=== PATIENT | male | born 1950 | race Caucasian/White ===

== ENCOUNTER 2019-12-14 01:47 | Inpatient (IN) | payer MEDICARE, OTHER ==
--- NOTE | 2019-12-14 02:07 | EDM.PDOC ---
ED HPI GENERAL MEDICAL PROBLEM - General Chief Complaint: Chest Pain Stated Complaint: chest pain Time Seen by Provider: 12/14/19 02:00 Source of Information: Reports: Patient, Old Records ([facility] chart/EMR), Other ([facility]) History Limitations: Reports: No Limitations - History of Present Illness INITIAL COMMENTS - FREE TEXT/NARRATIVE: The patient was brought to the emergency room via ambulance with basic transport/EMT accompaniment for evaluation of 5/10 retrosternal chest pressure which did radiate to the shoulders bilaterally. His symptoms did wake him up at about 11 PM this evening with no known previous history of coronary artery disease. The power supply engineer did perform an EKG with 4 baby aspirin also given. O2 was also initiated at 4 L/min by nasal cannula. The patient denies any heart flutter, dizziness, orthostasis, orthopnea, diaphoresis, paresthesias, recent decreased exercise tolerance, or any other anginal-type symptoms. No recent history of abdominal pain, heartburn, nausea, diarrhea, melena, gross hematochezia, or any food intolerance, including fatty foods, etc. with normal bowel movement 2 days ago. He denies any gross hematuria, colic, or other UTI symptoms. The patient also denies any recent fever, wheezing, dyspnea, etc. with stable chronic nonproductive cough secondary to his tobacco use. Chest pain symptoms resolved at time of arrival to this facility. He is a somewhat poor historian. Onset: Sudden Onset Date: 12/13/19 Onset Time: 23:00 Duration: Resolved Prior to Arrival Location: Reports: Chest, Upper Extremity, Left, Upper Extremity, Right, Radiates to (As above). Denies: Head, Face, Neck, Abdomen, Back, Pelvis Quality: Reports: Pressure Severity: Moderate Improves with: Reports: Medication Worsens with: Reports: None Context: Reports: Other (As above). Denies: Sick Contact, Trauma Treatments LAND PLANNER: Reports: Aspirin, EKG, Nitroglycerin, Oxygen Chest Pain Score (Numeric/FACES): 4 - Related Data Allergies Allergy/AdvReac Type Severity Reaction Status Date / Time No Known Allergies Allergy Verified 12/14/19 02:04 Home Meds: Home Meds Albuterol [Proventil HFA] 2 puff INH Q4H PRN #1 inhaler 09/20/14 [Rx] Warfarin [Coumadin] 5 mg PO ASDIRECTED 12/14/19 [History] Warfarin [Coumadin] 6 mg PO ASDIRECTED 12/14/19 [History] Past Medical History HEENT History: Reports: Cataract, Hard of Hearing, Impaired Vision, Other (See Below). Denies: Allergic Rhinitis, Glaucoma, Macular Degeneration, Otitis Media, Retinal Detachment Other HEENT History: Bilateral presbycusis with no current hearing aid therapy. Patient does wear reading glasses. Cardiovascular History: Reports: Blood Clots/VTE/DVT, High Cholesterol, Hypertension. Denies: Afib, Arrhythmia, CAD, Cardiomyopathy, Heart Failure, Heart Murmur, CT, PVD, Syncope Other Cardiovascular History: History of recurrent DVTs of the legs in the initially in the left leg and then in the right leg with current Coumadin therapy. Respiratory History: Reports: Bronchitis, Recurrent, COPD, Intubation, Previous, Pneumonia, Recurrent, Pulmonary Fibrosis, Other (See Below). Denies: Intubation, Difficult, PE, Pneumothorax, Sleep Apnea, TB Other Respiratory History: O2 dependent COPD usually nocturnal at 3.5 L/min. Metastatic lung cancer as below. Gastrointestinal History: Reports: Colon Polyp, GERD, Other (See Below). Denies: Celiac Disease, Cholelithiasis, Chronic Constipation, Chronic Diarrhea, Gastritis, GI Bleed, Hepatitis, Inflammatory Bowel Disease, Irritable Bowel Syndrome, Jaundice, Pancreatitis, PUD Other Gastrointestinal History: Esophageal cancer as below. Genitourinary History: Reports: BPH. Denies: Acute Renal Failure, Chronic Renal Insuffiency, Renal Calculus, STD, Urinary Incontinence, UTI, Recurrent Musculoskeletal History: Reports: Arthritis, Back Pain, Chronic, Fracture, Neck Pain, Chronic, Osteoarthritis, RA, Other (See Below). Denies: Gout, SLE Other Musculoskeletal History: Mid shaft right tibial and fibular fracture at about age 10 not requiring surgery. Left rotator cuff tear on 04/19/2017. Neurological History: Reports: Other (See Below). Denies: Cerebral Aneurysms, Concussion, CVA, Headaches, Chronic, Head Trauma, Migraines, MS, Neuropathy, Diabetic, Neuropathy, Peripheral, Parkinson's, Seizure, TIA Other Neuro History: Right arm ulnar neuropathy. Psychiatric History: Reports: Addiction, Other (See Below). Denies: Abuse, Victim of, ADD, ADHD, Anxiety, Depression, Psych Hospitalization(s), PTSD, Suicide Attempt, Suicidal Ideation Other Psychiatric History: Alcohol and tobacco use as below. Endocrine/Metabolic History: Reports: Hypothyroidism, Obesity/BMI 30+, Other (See Below). Denies: Diabetes, Type I, Diabetes, Type II, Diabetes Mellitus, Type 3c, IDDM Other Endocrine/Metabolic History: Previous obesity however not currently secondary to lung cancer, etc. Hematologic History: Reports: Other (See Below). Denies: Anemia, B12 Deficiency , Blood Transfusion(s), Iron Deficiency Other Hematologic History: Polycythemia secondary to tobacco abuse. Immunologic History: Reports: Immunosuppression, Other (See Below). Denies: AIDS, HIV, SLE Other Immunologic History: Current lung with metastases. Oncologic (Cancer) History: Reports: Esophageal, Lung, Metastatic, Other (See Below). 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 Initial therapy completed on 06/06/2018 with patient discontinuing therapy on his own for recurrence in March 2019. New left upper lobe pulmonary nodules by CT scan on 09/26/2019. 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 Dermatologic History: Reports: None. Denies: Eczema, Psoriasis - Infectious Disease History Infectious Disease History: Reports: Chicken Pox, Rheumatic Fever. Denies: C- Difficile, Measles, Meningitis, Mononucleosis, MRSA, Mumps, Pertussis (Whooping Cough), Rubella, Scarlet Fever, Shingles, TB, VRE - Past Surgical History Head Surgeries/Procedures: Reports: None HEENT Surgical History: Reports: Cataract Surgery, Eye Surgery, Oral Surgery, Other (See Below). Denies: Adenoidectomy, Laser Surgery, LASIK, Myringotomy w Tube(s), Naso-Sinus Surgery, Tonsillectomy Other HEENT Surgeries/Procedures: Laryngoscopies on 06/21/2018 and 01/18/2018. Bilateral cataract surgery at age 66. Complete teeth extraction with complete dentures uppers and lowers. Cardiovascular Surgical History: Reports: Other (See Below). Denies: Varicose Other Cardiovascular Surgeries/Procedures: Right-sided Port-A-Cath placement on 05/09/2018. Respiratory Surgical History: Reports: Lung Biopsies, Other (See Below). Denies: Thoracentesis Other Respiratory Surgeries/Procedures: Left-sided lung biopsies secondary to lung cancer as above. Bronchoscopy is on 03/23/2018 and 10/12/2017. GI Surgical History: Reports: Appendectomy, Colonoscopy, EGD, Hernia, Abdominal, Polypectomy, Other (See Below). Denies: Cholecystectomy, Hernia, Inguinal, Hernia Repair/Other Other GI Surgeries/Procedures: Laparoscopic appendectomy and concomitant umbilical hernia repair in about 2009. EGD and colonoscopy on 09/20/2017. EGD on 02/19/2017. Male Surgical History: Reports: Circumcision, Other (See Below). Denies: TURP-Transurethral Resection of Prostate, Vasectomy Other Male Surgeries/Procedures: Circumcision as an infant. Endocrine Surgical History: Reports: None. Denies: Thyroid Biopsy Neurological Surgical History: Reports: Lumbar Spine, Spinal Fusion, Other (See Below). Denies: C-Spine, Discectomy, Laminectomy, Sacral Spine, Thoracic Spine Other Neurological Surgeries/Procedures: Spinal fusions in 1997, 2002, and 2003. Musculoskeletal Surgical History: Denies: Arthroscopic Procedure, Carpal Tunnel, Ganglion Cyst, Joint Replacement, ORIF, Shoulder Surgery Oncologic Surgical History: Reports: None Dermatological Surgical History: Reports: None - Past Imaging History Past Imaging History: Reports: CAT Scan (Multiple CTs of the chest with IV contrast with last evaluations on 09/26/2019 and 07/04/2019. Soft tissue of the neck CT on 09/03/2017.), MRI (MRI of the left shoulder on 04/19/2017.), PET (PET/CT of the skull and brain on 08/31/2018 and 03/02/2018 with similar evaluation however to the thigh on 10/04/2017.), PFT (10/07/2017), Swallow Study (09/03/2017), Ultrasound (Endobronchial ultrasound on 03/23/2018 and 10/12/2017.), Other (See Below) (EMG and nerve conduction studies on 07/14/2018.) Social & Family History - Family History HEENT: Reports: Macular Degeneration, Retinal Detachment, Other (See Below). Denies: Glaucoma Other HEENT Family History: Sister with macular degeneration. Brother with retinal detachment. Cardiac: Reports: Aneurysm, Other (See Below). Denies: Afib, Arrhythmia, Blood Clots/VTE/DVT, CAD, Heart Failure, High Cholesterol, Hypertension, CT, PVD/COD, Syncope Other Cardiac Family History: Mother with AAA. Respiratory: Reports: None. Denies: Asthma, COPD, PE, Pneumothorax, Sleep Apnea GI: Reports: None. Denies: Celiac Disease, Cholelithiasis, Colon Polyps, GERD, GI bleed, Inflammatory Bowel Disease, Irritable Bowel Syndrome, PUD : Reports: None. Denies: Renal Calculus, Renal Disease/Insufficiency OBGYN: Reports: None. Denies: Endometriosis, Recurrent Spontaneous Musculoskeletal: Reports: None. Denies: Arthritis, Gout, Osteoarthritis, RA, SLE Neurological: Reports: None. Denies: Alzheimers Disease, CVA, Dementia, Migraines, MS, Parkinson's, Seizure, TIA Psychiatric: Reports: None. Denies: Abuse, Victim of, ADD, ADHD, Anxiety, Depression, Psych Hospitalization(s), PTSD, Suicide Attempt Endocrine/Metabolic: Reports: None. Denies: Diabetes, Type I, Diabetes, type II, Diabetes Mellitus, Type 3c, Hypothyroidism, IDDM Hematologic: Reports: None. Denies: SLE Immunologic: Reports: None. Denies: AIDS, HIV, SLE Dermatologic: Reports: None. Denies: Eczema, Psoriasis Oncologic: Reports: None. Denies: Colon, Esophageal, Hodgkin's Lymphoma, Leukemia, Lymphoma, Non-Hodgkin's Lymphoma, Prostate, Skin - Tobacco Use Smoking Status *Q: Current Every Day Smoker Tobacco Use Within Last Twelve Months: Cigarettes Years of Tobacco use: 52 Packs/Tins Daily: 0.5 Packs/Tins Daily Comment: Started smoking at age 17 with maximum use of 1.5 packs/day. - Caffeine Use Caffeine Use: Reports: Coffee (10 cups/day), Soda (Occasional). Denies: Energy Drinks, Tea - Alcohol Use Alcohol Use History: Yes Days Per Week of Alcohol Use: 7 Number of Drinks Per Day: 6 Number of Drinks Per Day Comment: Usually beer. Patient denies previous alcohol abuse or treatment, although history of alcohol abuse per medical records. 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 ED EXAM, GENERAL - Physical Exam Exam: See Below General Appearance: Alert, WD/WN, No Apparent Distress Eye Exam: Bilateral Eye: EOMI, Normal Inspection (No nystagmus), PERRL Ears: Normal External Exam, Normal Canal (Moderate right-sided cerumen impaction), Normal TMs, Hearing Loss (Moderate bilateral presbycusis) Nose: Normal Inspection, Normal Mucosa, No Blood Throat/Mouth: Normal Inspection, Normal Lips, Normal Gums, Normal Oropharynx, Normal Voice, No Airway Compromise. No: Normal Teeth (Complete dentures uppers and lowers), Dysphagia, Perioral Cyanosis Head: Atraumatic, Normocephalic. No: Facial Swelling, Facial Tenderness, Sinus Tenderness Neck: Normal Inspection, Supple, Non-Tender, Full Range of Motion. No: Lymphadenopathy (L), Lymphadenopathy (R), Thyromegaly Respiratory/Chest: No Respiratory Distress, Rales (Moderate diffuse bilaterally. Mild diffuse bilaterally including in the bases left greater than right.), Rhonchi. No: Pleural Rub, Retractions Cardiovascular: Normal Peripheral Pulses, Regular Rate, Rhythm, No Gallop, No JVD, No Murmur, No Rub. No: No Edema (Dependent edema as below), Gallop/S3, Gallop/S4 Peripheral Pulses: 2+: Radial (L), Radial (R), Dorsalis Pedis (L), Dorsalis Pedis (R) GI/Abdominal: Normal Bowel Sounds, Soft, Non-Tender, No Organomegaly, No Distention, No Abnormal Bruit, No Mass, Pelvis Stable. No: Guarding (Male) Exam: Deferred Rectal (Males) Exam: Deferred Back Exam: Full Range of Motion, Other (Mild kyphosis). No: CVA Tenderness (L), CVA Tenderness (R), Muscle Spasm, Paraspinal Tenderness, Vertebral Tenderness Extremities: Normal Range of Motion, Non-Tender, Normal Capillary Refill, Pedal Edema (+1 bilateral pedal/pretibial edema). No: Amelia's Sign Neurological: Alert, Oriented, CN II-XII Intact, Normal Cognition, Normal Gait, Normal Reflexes (Negative Babinski's), No Motor/Sensory Deficits, Other (Mild intoxication) Psychiatric: Normal Affect, Normal Mood Skin Exam: Warm, Dry, Intact, Normal Color, No Rash. No: Diaphoretic, Wound/Incision Lymphatic: No Adenopathy EKG INTERPRETATION EKG Date: 12/14/19 Time: 01:43 Rhythm: NSR Rate (Beats/Min): 83 [place]: Normal (Neutral cardiac axis) P-Wave: Enlarged (Moderate diffuse biphasic P waves) QRS: Normal (0.09 seconds with some repolarization changes) ST-T: Normal QT: Normal UT/PQ Interval: 0.18 seconds with pulmonary hypertension by EKG Comparison: NA - No Prior EKG (Other than EKG by power supply engineer prior to arrival) EKG Interpretation Comments: 1. No acute ischemic changes 2. Pulmonary hypertension by EKG 3. PVC by EKG conducted by power supply engineer prior to arrival Course - Vital Signs Last Recorded V/S: Last Vital Signs Temp 36.7 C 12/14/19 01:58 Pulse 85 12/14/19 02:51 Resp 20 12/14/19 02:51 BP 144/93 H 12/14/19 02:51 Pulse Ox 97 12/14/19 02:51 Vital Signs - 24 hr 12/14/19 12/14/19 12/14/19 01:58 02:08 02:51 Temperature [ 36.7 C Temporal] Pulse, 83 85 Peripheral [ Apical] Respiratory 20 20 Rate Blood Pressure 136/89 144/93 H [Right Upper Arm] O2 Sat by Pulse 100 97 Oximetry O2 Sat by Pulse 98 Oximetry [ Nasal Cannula] - Orders/Labs/Meds Orders: Active Orders 24 hr Category Date Time Status Cardiac Monitoring [RC] . DIRECTED Care 12/14/19 01:59 Active Cardiac Monitoring [RC] . DIRECTED Care 12/14/19 02:08 Active EKG Documentation Completion [RC] ASDIRECTED Care 12/14/19 02:01 Active Oxygen Therapy, ED [RC] PRN Care 12/14/19 02:08 Active Peripheral IV Care [RC] . DIRECTED Care 12/14/19 02:08 Active Pulse Oximetry [RC] CONTINUOUS Care 12/14/19 02:08 Active Up With Assistance [RC] PFP Care 12/14/19 02:08 Active Vital Signs [RC] PFP Care 12/14/19 02:08 Active Nothing per Oral Now Diet [DIET] Diet 12/14/19 Breakfast Active Chest 1V Frontal [CR] Stat Exams 12/14/19 02:01 Ordered Chest PE [Ang Chest] [CT] Stat Exams 12/14/19 02:42 Ordered Enoxaparin [Lovenox] Med 12/14/19 03:00 Ordered 80 mg SUBCUT Q24H Sodium Chloride 0.9% [Saline Flush] Med 12/14/19 02:08 Active 10 ml FLUSH ASDIRECTED PRN Obtain Past Medical Record [OM.PC] Urgent Oth 12/14/19 02:08 Active Peripheral IV Insertion Adult [OM.PC] Stat Oth 12/14/19 02:08 Ordered Resuscitation Status Stat Resus Stat 12/14/19 02:08 Ordered Medication Orders Enoxaparin Sodium (Lovenox) 80 mg SUBCUT Q24H ALEIDA Last Admin: 12/14/19 02:54 Dose: 80 mg Documented by: Sodium Chloride (Saline Flush) 10 ml FLUSH ASDIRECTED PRN PRN Reason: Keep Vein Open Labs: Laboratory Tests 12/14/19 12/14/19 12/14/19 Range/Units 01:59 01:59 01:59 WBC 11.2 H (4.0-10.2) K/uL RBC 4.06 L (4.33-5.41) M/uL Hgb 13.7 D (13.1-16.8) g/dL Hct 38.9 L (39.0-49.0) % MCV 95.8 (84.0-98.0) fL MCH 33.7 H (28.2-33.3) pg MCHC 35.2 (31.7-36.0) g/dL RDW 14.3 H (11.2-14.1) % Plt Count 194 (150-350) K/uL Neut % (Auto) 84.9 H (45.0-80.0) % Lymph % (Auto) 3.9 L (10.0-50.0) % [place] % (Auto) 6.9 (2.0-14.0) % Eos % (Auto) 4.0 (0.0-5.0) % Baso % (Auto) 0.3 (0.0-2.0) % Neut # (Auto) 9.46 H (1.40-7.00) K/uL Lymph # (Auto) 0.44 L (0.50-3.50) K/uL [place] # (Auto) 0.77 (0.00-1.00) K/uL Eos # (Auto) 0.45 (0.00-0.50) K/uL Baso # (Auto) 0.03 (0.00-0.20) K/uL PT 10.9 D (9.5-12.0) SEC INR 1.1 APTT 27.1 (24.5-32.8) SEC D-Dimer, Quantitative (0-400) ng/mL Sodium 125 L D (136-145) mmol/L Potassium 3.7 (3.5-5.1) mmol/L Chloride 88 L (98-107) mmol/L Carbon Dioxide 29.9 (21.0-32.0) mmol/L BUN 3 L (7-18) mg/dL Creatinine 0.59 (0.51-1.17) mg/dL Est Cr Clr Drug Dosing 119.52 mL/min Estimated GFR (MDRD) > 60 mL/min Glucose 115 H (74-106) mg/dL Lactic Acid (0.4-2.0) mmol/L Uric Acid (2.6-7.2) mg/dL Calcium 8.5 (8.5-10.1) mg/dL Magnesium 2.0 (1.8-2.4) mg/dL Total Bilirubin 1.0 (0.2-1.0) mg/dL AST 32 (15-37) U/L ALT 26 (12-78) U/L Alkaline Phosphatase 71 (46-116) IU/L Creatine Kinase 81 (26-308) U/L Creatine Kinase Index 2.8 H (0.0-2.5) % CK-MB (CK-2) 2.30 (0.00-3.60) ng/mL Troponin I 0.002 (0.000-0.056) ng/mL NT-Pro-B Natriuret Pep (0-125) pg/mL Total Protein 7.5 (6.4-8.2) g/dL Albumin 3.6 (3.4-5.0) g/dL TSH, Ultra Sensitive 27.213 H (0.358-3.740) mIU/mL Ethyl Alcohol (0.000-0.080) g/dL 12/14/19 12/14/19 12/14/19 Range/Units 01:59 01:59 01:59 WBC (4.0-10.2) K/uL RBC (4.33-5.41) M/uL Hgb (13.1-16.8) g/dL Hct (39.0-49.0) % MCV (84.0-98.0) fL MCH (28.2-33.3) pg MCHC (31.7-36.0) g/dL RDW (11.2-14.1) % Plt Count (150-350) K/uL Neut % (Auto) (45.0-80.0) % Lymph % (Auto) (10.0-50.0) % [place] % (Auto) (2.0-14.0) % Eos % (Auto) (0.0-5.0) % Baso % (Auto) (0.0-2.0) % Neut # (Auto) (1.40-7.00) K/uL Lymph # (Auto) (0.50-3.50) K/uL [place] # (Auto) (0.00-1.00) K/uL Eos # (Auto) (0.00-0.50) K/uL Baso # (Auto) (0.00-0.20) K/uL PT (9.5-12.0) SEC INR APTT (24.5-32.8) SEC D-Dimer, Quantitative 2660 H (0-400) ng/mL Sodium (136-145) mmol/L Potassium (3.5-5.1) mmol/L Chloride (98-107) mmol/L Carbon Dioxide (21.0-32.0) mmol/L BUN (7-18) mg/dL Creatinine (0.51-1.17) mg/dL Est Cr Clr Drug Dosing mL/min Estimated GFR (MDRD) mL/min Glucose (74-106) mg/dL Lactic Acid 1.5 (0.4-2.0) mmol/L Uric Acid 4.0 (2.6-7.2) mg/dL Calcium (8.5-10.1) mg/dL Magnesium (1.8-2.4) mg/dL Total Bilirubin (0.2-1.0) mg/dL AST (15-37) U/L ALT (12-78) U/L Alkaline Phosphatase (46-116) IU/L Creatine Kinase (26-308) U/L Creatine Kinase Index (0.0-2.5) % CK-MB (CK-2) (0.00-3.60) ng/mL Troponin I (0.000-0.056) ng/mL NT-Pro-B Natriuret Pep 346 H (0-125) pg/mL Total Protein (6.4-8.2) g/dL Albumin (3.4-5.0) g/dL TSH, Ultra Sensitive (0.358-3.740) mIU/mL Ethyl Alcohol 0.133 H (0.000-0.080) g/dL Meds: Medications Generic Name Dose Route Start Last Admin Trade Name Freq PRN Reason Stop Dose Admin Enoxaparin Sodium 80 mg 12/14/19 03:00 12/14/19 02:54 Lovenox SUBCUT 80 mg Q24H ALEIDA Administration Sodium Chloride 10 ml 12/14/19 02:08 Saline Flush FLUSH ASDIRECTED PRN Keep Vein Open Discontinued Medications Generic Name Dose Route Start Last Admin Trade Name Freq PRN Reason Stop Dose Admin Famotidine 40 mg 12/14/19 02:08 12/14/19 02:13 Pepcid IVPUSH 12/14/19 02:09 40 mg ONETIME ONE Administration Iopamidol 100 ml 12/14/19 02:54 Isovue-370 (76%) IVPUSH 12/14/19 02:55 ONETIME ONE Iopamidol Confirm 12/14/19 02:56 Isovue-370 (76%) Administered 12/14/19 02:57 Dose 100 ml .ROUTE .[facility] - Radiology Interpretation Free Text/Narrative:: classroom monitor shows normal sinus rhythm with heart rate in the 80s with no ectopy or arrhythmia Chest x-ray, portable, shows moderate COPD and pulmonary fibrotic changes with pulmonary nodules difficult to assess. Mild left pleural effusion and prominence of the proximal aortic arch. No pneumothorax or pulmonary infiltrates. Right-sided Port-A-Cath noted. Departure - Departure Time of Disposition: 03:30 Disposition: Admitted As Inpatient 68 Condition: Good Clinical Impression: D-dimer, elevated, Hyponatremia, Osteoarthritis, Metastatic primary lung cancer, Tobacco abuse counseling, Alcohol abuse, Chest pain, Hypothyroidism (acquired), Peptic reflux disease, CHF (congestive heart failure), Hypertension, Hyperlipidemia, PVCs (premature ventricular contractions) Referrals: PCP,None [Primary Care Provider] - Forms: ED Department Discharge Care Plan Goals: See plan. Sepsis Event Note (ED) - Evaluation Sepsis Screening Result: No Definite Risk - Focused Exam Vital Signs: Vital Signs Temp Pulse Resp BP Pulse Ox Pulse Ox 12/14/19 02:51 85 20 144/93 H 97 12/14/19 02:08 98 12/14/19 01:58 36.7 C 83 20 136/89 100 - Problem List & Annotations (1) Chest pain SNOMED Code(s): 08158234 Code(s): R07.9 - CHEST PAIN, UNSPECIFIED Status: Acute Priority: High Current Visit: Yes Annotation/Comment:: Chest pain protocol was initiated upon arrival of the patient into our facility. Note baby aspirin x4 were given by the power supply engineer prior to arrival in spite of his current Coumadin therapy. Brilinta was held, however subcu Lovenox was initiated at the VTE dose secondary to his d-dimer elevation. Initiate standard rule out CT orders with cardiology consultation depending on his clinical course. Probable Cardiolite stress test on an outpatient basis. Qualifiers: Chest pain type: precordial pain Qualified Code(s): R07.2 - Precordial pain (2) CHF (congestive heart failure) SNOMED Code(s): 36587021 Code(s): I50.9 - HEART FAILURE, UNSPECIFIED Status: Acute Priority: High Current Visit: Yes Onset Date: 12/14/19 Annotation/Comment:: Note hyponatremia with initiation of IV Lasix therapy with caution. The patient is on an JAMES inhibitor. Echocardiogram on an outpatient basis. Qualifiers: Heart failure type: unspecified Heart failure chronicity: acute Qualified Code(s): I50.9 - Heart failure, unspecified (3) D-dimer, elevated SNOMED Code(s): 288014666 Code(s): R79.89 - OTHER SPECIFIED ABNORMAL FINDINGS OF BLOOD CHEMISTRY Status: Acute Priority: High Current Visit: Yes Onset Date: 12/14/19 Annotation/Comment:: Previous history of recurrent DVTs. Subcutaneous Lovenox initiated in the emergency room as above. CTA of the chest results pending at time of patient's admission. Venous Doppler studies of the lower extremities to be conducted later this morning. (4) Alcohol abuse SNOMED Code(s): 72646954 Code(s): F10.10 - ALCOHOL ABUSE, UNCOMPLICATED Status: Chronic Priority: Medium Current Visit: Yes Annotation/Comment:: Patient denies, however alcohol abuse by medical records with elevated alcohol level at time of arrival. DT precautions to be initiated with no apparent previous history of DTs, etc. (5) Hyponatremia SNOMED Code(s): 00365302 Code(s): E87.1 - HYPO-OSMOLALITY AND HYPONATREMIA Status: Acute Priority: Low Current Visit: Yes Annotation/Comment:: Note CHF as above. Known history of hyponatremia. Consider 3% sodium chloride infusion depending on his clinical course. (6) Hypothyroidism (acquired) SNOMED Code(s): 499090477 Code(s): E03.9 - HYPOTHYROIDISM, UNSPECIFIED Status: Chronic Priority: High Current Visit: Yes Annotation/Comment:: Patient denies medication noncompliance however significantly elevated TSH today. Further work-up depending on his clinical course. (7) Metastatic primary lung cancer SNOMED Code(s): 65266865, 316885108 Code(s): C34.90 - MALIGNANT NEOPLASM OF UNSP PART OF UNSP BRONCHUS OR LUNG Status: Chronic Priority: High Current Visit: Yes Annotation/Comment:: Patient has stopped experimental chemotherapy in March 2019 by his history. He still wishes to be a full code, however. Prognosis guarded secondary to reoccurrence as above and his previous weight loss from his lung cancer. Qualifiers: Laterality: left Qualified Code(s): C34.92 - Malignant neoplasm of unspecified part of left bronchus or lung (8) Peptic reflux disease SNOMED Code(s): 107231461 Code(s): K21.9 - GASTRO-ESOPHAGEAL REFLUX DISEASE WITHOUT ESOPHAGITIS Status: Chronic Priority: Medium Current Visit: Yes Annotation/Comment:: Nonsymptomatic at this time. High-dose IV Pepcid given as GI prophylaxis. (9) Tobacco abuse counseling SNOMED Code(s): 213446165, 798077892, [id number] Code(s): Z71.6 - TOBACCO ABUSE COUNSELING Status: Chronic Priority: Medium Current Visit: Yes Annotation/Comment:: Tobacco cessation strongly encouraged especially in light of his lung cancer with tobacco cessation information to be provided at discharge. (10) Osteoarthritis SNOMED Code(s): 067156505 Code(s): M19.90 - UNSPECIFIED OSTEOARTHRITIS, UNSPECIFIED SITE Status: Chronic Priority: Medium Current Visit: Yes Annotation/Comment:: Note additional history of rheumatoid arthritis. Stable by patient history with history of disability secondary to chronic low back pain. Qualifiers: Osteoarthritis location: multiple joints Osteoarthritis type: primary Qualified Code(s): M89.49 - Other hypertrophic osteoarthropathy, multiple sites (11) Hyperlipidemia SNOMED Code(s): 70974868 Code(s): E78.5 - HYPERLIPIDEMIA, UNSPECIFIED Status: Chronic Priority: Medium Current Visit: Yes Annotation/Comment:: Lipid panel and glycosylated hemoglobin later today. Qualifiers: Hyperlipidemia type: unspecified Qualified Code(s): E78.5 - Hyperlipidemia, unspecified (12) Hypertension SNOMED Code(s): 62525661 Code(s): I10 - ESSENTIAL (PRIMARY) HYPERTENSION Status: Chronic Priority: Medium Current Visit: Yes Annotation/Comment:: Good control in the emergency room. Qualifiers: Hypertension type: essential hypertension Qualified Code(s): I10 - Essential (primary) hypertension (13) PVCs (premature ventricular contractions) SNOMED Code(s): 19225121 Code(s): I49.3 - VENTRICULAR PREMATURE DEPOLARIZATION Status: Acute Priority: Medium Current Visit: Yes Onset Date: 12/14/19 Annotation/Comment:: Newly diagnosed. Observe for now. - Problem List Review Problem List Initiated/Reviewed/Updated: Yes - My Orders Last 24 Hours: My Active Orders 12/14/19 01:59 Cardiac Monitoring [RC] . DIRECTED 12/14/19 02:01 EKG Documentation Completion [RC] ASDIRECTED Chest 1V Frontal [CR] Stat 12/14/19 02:08 Cardiac Monitoring [RC] . DIRECTED Oxygen Therapy, ED [RC] PRN Peripheral IV Care [RC] . DIRECTED Pulse Oximetry [RC] CONTINUOUS Up With Assistance [RC] PFP Vital Signs [RC] PFP Sodium Chloride 0.9% [Saline Flush] 10 ml FLUSH ASDIRECTED PRN Obtain Past Medical Record [OM.PC] Urgent Peripheral IV Insertion Adult [OM.PC] Stat Resuscitation Status Stat 12/14/19 02:42 Chest PE [Ang Chest] [CT] Stat 12/14/19 03:00 Enoxaparin [Lovenox] 80 mg SUBCUT Q24H 12/14/19 Breakfast Nothing per Oral Now Diet [DIET] - Assessment/Plan Admission H&P: Please use this note as an admission H&P Last 24 Hours: My Active Orders 12/14/19 01:59 Cardiac Monitoring [RC] . DIRECTED 12/14/19 02:01 EKG Documentation Completion [RC] ASDIRECTED Chest 1V Frontal [CR] Stat 12/14/19 02:08 Cardiac Monitoring [RC] . DIRECTED Oxygen Therapy, ED [RC] PRN Peripheral IV Care [RC] . DIRECTED Pulse Oximetry [RC] CONTINUOUS Up With Assistance [RC] PFP Vital Signs [RC] PFP Sodium Chloride 0.9% [Saline Flush] 10 ml FLUSH ASDIRECTED PRN Obtain Past Medical Record [OM.PC] Urgent Peripheral IV Insertion Adult [OM.PC] Stat Resuscitation Status Stat 12/14/19 02:42 Chest PE [Ang Chest] [CT] Stat 12/14/19 03:00 Enoxaparin [Lovenox] 80 mg SUBCUT Q24H 12/14/19 Breakfast Nothing per Oral Now Diet [DIET] Assessment:: As above Plan: As above. Extensive precautions were given to the patient, who is in agreement with the treatment plan. The patient will require about 3-4 days of i npatient/acute care secondary to multiple health problems as above.
[2019-12-14] MEDS ORDERED: Famotidine 20 MG/2 ML SDV IVPUSH ONE (02:08)
[2019-12-14 02:14] LABS: PTT,PARTIAL THROMBOPLSTIN TIME 27.1 SEC (24.5-32.8)
[2019-12-14 02:24] LABS: CHLORIDE,CL 88 mmol/L (98-107); SODIUM,NA 125 mmol/L (136-145)
[2019-12-14] MEDS ORDERED: Iopamidol 755 Mg/ML 100 ML Bottle IVPUSH ONE (02:54)
[2019-12-14] MEDS ORDERED: Iopamidol 755 Mg/ML 100 ML Bottle ONE (02:56)
[2019-12-14] MEDS ORDERED: Enoxaparin 80 MG/0.8 ML Syringe SUBCUT SCH (03:00)
[2019-12-14] MEDS ORDERED: Temazepam 15 MG Cap PO PRN (05:11)
[2019-12-14] MEDS ORDERED: Acetaminophen 325 MG Tab PO PRN (05:11)
[2019-12-14] MEDS ORDERED: Warfarin 5 MG Tab PO ONE (05:11)
[2019-12-14] MEDS ORDERED: Albuterol 8 GM Inhaler INH PRN (05:29)
[2019-12-14] MEDS ORDERED: Furosemide 40 MG/4 ML VIAL IVPUSH ONE (05:30)
[2019-12-14] MEDS: Pantoprazole 40 MG Vial IVPUSH SCH ×2 (06:01→18:08)
[2019-12-14] MEDS: Sodium Chloride 0.9% 10 ML Syringe FLUSH PRN ×3 (06:01→18:08)
[2019-12-14] MEDS ORDERED: Levothyroxine 50 MCG Tab PO SCH (07:30)
[2019-12-14] MEDS: Formoterol/Mometasone 100-5 MCG 8.8 GM Inhaler IH SCH ×2 (09:10→18:13)
[2019-12-14] MEDS: Tiotropium Inhaler 18 MCG Inhalation Powder Cap Kit of 5 INH SCH (09:11)
[2019-12-14] MEDS: Potassium Chloride 20 MEQ Tab.ER PO SCH ×3 (09:11→18:09)
[2019-12-14] MEDS: Lisinopril 10 MG Tab PO SCH (09:14)
--- NOTE | 2019-12-14 15:47 | PCM.PN ---
- General Info Date of Service: 12/14/19 Admission Dx/Problem (Free Text): 1. Chest pain 2. D-dimer elevation 3. COPD Functional Status: Reports: Pain Controlled, Tolerating Diet, Ambulating, Urinating, New Symptoms (Left shoulder pain as below), Incentive Spirometry Pain Score: 4 (Muscular and arthritic left shoulder pain) - Review of Systems General: Reports: No Symptoms. Denies: Fever, Weakness, Fatigue, Malaise, Chills, Night Sweats, Appetite (Adequate) HEENT: Reports: No Symptoms. Denies: Dysphasia, Ear Pain, Eye Pain, Headaches, Sore Throat, Visual Changes Pulmonary: Reports: Cough (Stable chronic). Denies: Shortness of Breath, Pleuritic Chest Pain, Sputum, Hemoptysis, Wheezing Cardiovascular: Reports: No Symptoms. Denies: Chest Pain, Palpitations, Dyspnea on Exertion, Orthopnea, Edema, Lightheadedness Gastrointestinal: Reports: No Symptoms, Other (No bowel movement since admission). Denies: Abdominal Pain, Constipation, Decreased Appetite, Diarrhea, Difficulty Swallowing, Hematochezia, Melena, Nausea, Vomiting Genitourinary: Reports: No Symptoms. Denies: Frequency, Burning, Urgency, Incontinence, Retention, Flank Pain Musculoskeletal: Reports: Shoulder Pain (As above). Denies: Neck Pain, Arm Pain, Back Pain Skin: Reports: No Symptoms. Denies: Diaphoresis Neurological: Reports: No Symptoms. Denies: Confusion, Dizziness, Numbness, Paresthesia, Tingling, Weakness - Patient Data Vitals - Most Recent: Last Vital Signs Temp 37.3 C 12/14/19 12:00 Pulse 75 12/14/19 12:00 Resp 18 12/14/19 12:00 BP 102/70 12/14/19 12:00 Pulse Ox 92 L 12/14/19 12:00 Vital Signs - 24 hr 12/14/19 12/14/19 12/14/19 01:58 02:08 02:51 Temperature [ 36.7 C Temporal] Pulse, 83 85 Peripheral [ Apical] Respiratory 20 20 Rate Blood Pressure Blood Pressure 136/89 144/93 H [Right Upper Arm] O2 Sat by Pulse 100 97 Oximetry O2 Sat by Pulse 98 Oximetry [ Nasal Cannula] 12/14/19 12/14/19 12/14/19 08:00 09:14 12:00 Temperature [ 37.5 C 37.3 C Temporal] Pulse, 80 75 Peripheral [ Apical] Respiratory 16 18 Rate Blood Pressure 157/96 H Blood Pressure 157/96 H 102/70 [Right Upper Arm] O2 Sat by Pulse 92 L 92 L Oximetry O2 Sat by Pulse Oximetry [ Nasal Cannula] Weight - Most Recent: 70.9 kg I&O - Last 24 Hours: Intake & Output 12/14/19 12/14/19 12/14/19 06:59 14:59 22:59 Output Total 1000 1200 Balance -1000 -1200 Imaging Impressions - Last 24 Hours: nurse monitoring shows normal sinus rhythm with heart rate in the 80s with no ectopy or arrhythmia Venous Doppler studies of the lower extremities on 12/14/2019 was positive for a DVT of the right popliteal vein. CTA of the chest on 12/14/2019 showed no evidence of PE however note bilateral pleural effusions left greater than right with additional evidence of a mild pericardial effusion. Lab Results Last 24 Hours: Laboratory Results - last 24 hr 12/14/19 12/14/19 12/14/19 Range/Units 01:59 01:59 01:59 WBC 11.2 H (4.0-10.2) K/uL RBC 4.06 L (4.33-5.41) M/uL Hgb 13.7 D (13.1-16.8) g/dL Hct 38.9 L (39.0-49.0) % MCV 95.8 (84.0-98.0) fL MCH 33.7 H (28.2-33.3) pg MCHC 35.2 (31.7-36.0) g/dL RDW 14.3 H (11.2-14.1) % Plt Count 194 (150-350) K/uL Neut % (Auto) 84.9 H (45.0-80.0) % Lymph % (Auto) 3.9 L (10.0-50.0) % [place] % (Auto) 6.9 (2.0-14.0) % Eos % (Auto) 4.0 (0.0-5.0) % Baso % (Auto) 0.3 (0.0-2.0) % Neut # (Auto) 9.46 H (1.40-7.00) K/uL Lymph # (Auto) 0.44 L (0.50-3.50) K/uL [place] # (Auto) 0.77 (0.00-1.00) K/uL Eos # (Auto) 0.45 (0.00-0.50) K/uL Baso # (Auto) 0.03 (0.00-0.20) K/uL PT 10.9 D (9.5-12.0) SEC INR 1.1 APTT 27.1 (24.5-32.8) SEC D-Dimer, Quantitative (0-400) ng/mL Sodium 125 L D (136-145) mmol/L Potassium 3.7 (3.5-5.1) mmol/L Chloride 88 L (98-107) mmol/L Carbon Dioxide 29.9 (21.0-32.0) mmol/L BUN 3 L (7-18) mg/dL Creatinine 0.59 (0.51-1.17) mg/dL Est Cr Clr Drug Dosing 119.52 mL/min Estimated GFR (MDRD) > 60 mL/min Glucose 115 H (74-106) mg/dL Hemoglobin A1c (4.3-5.7) % Lactic Acid (0.4-2.0) mmol/L Uric Acid (2.6-7.2) mg/dL Calcium 8.5 (8.5-10.1) mg/dL Magnesium 2.0 (1.8-2.4) mg/dL Total Bilirubin 1.0 (0.2-1.0) mg/dL AST 32 (15-37) U/L ALT 26 (12-78) U/L Alkaline Phosphatase 71 (46-116) IU/L Creatine Kinase 81 (26-308) U/L Creatine Kinase Index 2.8 H (0.0-2.5) % CK-MB (CK-2) 2.30 (0.00-3.60) ng/mL Troponin I 0.002 (0.000-0.056) ng/mL NT-Pro-B Natriuret Pep (0-125) pg/mL Total Protein 7.5 (6.4-8.2) g/dL Albumin 3.6 (3.4-5.0) g/dL Triglycerides (30-150) mg/dL Cholesterol (100-200) mg/dL LDL Cholesterol, Calc (0-100) mg/dL HDL Cholesterol (40-60) mg/dL TSH, Ultra Sensitive 27.213 H (0.358-3.740) mIU/mL Ethyl Alcohol (0.000-0.080) g/dL 12/14/19 12/14/19 12/14/19 Range/Units 01:59 01:59 01:59 WBC (4.0-10.2) K/uL RBC (4.33-5.41) M/uL Hgb (13.1-16.8) g/dL Hct (39.0-49.0) % MCV (84.0-98.0) fL MCH (28.2-33.3) pg MCHC (31.7-36.0) g/dL RDW (11.2-14.1) % Plt Count (150-350) K/uL Neut % (Auto) (45.0-80.0) % Lymph % (Auto) (10.0-50.0) % [place] % (Auto) (2.0-14.0) % Eos % (Auto) (0.0-5.0) % Baso % (Auto) (0.0-2.0) % Neut # (Auto) (1.40-7.00) K/uL Lymph # (Auto) (0.50-3.50) K/uL [place] # (Auto) (0.00-1.00) K/uL Eos # (Auto) (0.00-0.50) K/uL Baso # (Auto) (0.00-0.20) K/uL PT (9.5-12.0) SEC INR APTT (24.5-32.8) SEC D-Dimer, Quantitative 2660 H (0-400) ng/mL Sodium (136-145) mmol/L Potassium (3.5-5.1) mmol/L Chloride (98-107) mmol/L Carbon Dioxide (21.0-32.0) mmol/L BUN (7-18) mg/dL Creatinine (0.51-1.17) mg/dL Est Cr Clr Drug Dosing mL/min Estimated GFR (MDRD) mL/min Glucose (74-106) mg/dL Hemoglobin A1c (4.3-5.7) % Lactic Acid 1.5 (0.4-2.0) mmol/L Uric Acid 4.0 (2.6-7.2) mg/dL Calcium (8.5-10.1) mg/dL Magnesium (1.8-2.4) mg/dL Total Bilirubin (0.2-1.0) mg/dL AST (15-37) U/L ALT (12-78) U/L Alkaline Phosphatase (46-116) IU/L Creatine Kinase (26-308) U/L Creatine Kinase Index (0.0-2.5) % CK-MB (CK-2) (0.00-3.60) ng/mL Troponin I (0.000-0.056) ng/mL NT-Pro-B Natriuret Pep 346 H (0-125) pg/mL Total Protein (6.4-8.2) g/dL Albumin (3.4-5.0) g/dL Triglycerides (30-150) mg/dL Cholesterol (100-200) mg/dL LDL Cholesterol, Calc (0-100) mg/dL HDL Cholesterol (40-60) mg/dL TSH, Ultra Sensitive (0.358-3.740) mIU/mL Ethyl Alcohol 0.133 H (0.000-0.080) g/dL 12/14/19 12/14/19 12/14/19 Range/Units 09:15 09:15 14:43 WBC (4.0-10.2) K/uL RBC (4.33-5.41) M/uL Hgb (13.1-16.8) g/dL Hct (39.0-49.0) % MCV (84.0-98.0) fL MCH (28.2-33.3) pg MCHC (31.7-36.0) g/dL RDW (11.2-14.1) % Plt Count (150-350) K/uL Neut % (Auto) (45.0-80.0) % Lymph % (Auto) (10.0-50.0) % [place] % (Auto) (2.0-14.0) % Eos % (Auto) (0.0-5.0) % Baso % (Auto) (0.0-2.0) % Neut # (Auto) (1.40-7.00) K/uL Lymph # (Auto) (0.50-3.50) K/uL [place] # (Auto) (0.00-1.00) K/uL Eos # (Auto) (0.00-0.50) K/uL Baso # (Auto) (0.00-0.20) K/uL PT (9.5-12.0) SEC INR APTT (24.5-32.8) SEC D-Dimer, Quantitative (0-400) ng/mL Sodium (136-145) mmol/L Potassium (3.5-5.1) mmol/L Chloride (98-107) mmol/L Carbon Dioxide (21.0-32.0) mmol/L BUN (7-18) mg/dL Creatinine (0.51-1.17) mg/dL Est Cr Clr Drug Dosing mL/min Estimated GFR (MDRD) mL/min Glucose (74-106) mg/dL Hemoglobin A1c 5.0 (4.3-5.7) % Lactic Acid (0.4-2.0) mmol/L Uric Acid (2.6-7.2) mg/dL Calcium (8.5-10.1) mg/dL Magnesium (1.8-2.4) mg/dL Total Bilirubin (0.2-1.0) mg/dL AST (15-37) U/L ALT (12-78) U/L Alkaline Phosphatase (46-116) IU/L Creatine Kinase 58 (26-308) U/L Creatine Kinase Index 1.9 (0.0-2.5) % CK-MB (CK-2) 1.10 (0.00-3.60) ng/mL Troponin I 0.000 (0.000-0.056) ng/mL NT-Pro-B Natriuret Pep (0-125) pg/mL Total Protein (6.4-8.2) g/dL Albumin (3.4-5.0) g/dL Triglycerides 42 (30-150) mg/dL Cholesterol 180 (100-200) mg/dL LDL Cholesterol, Calc 48 (0-100) mg/dL HDL Cholesterol 124 H (40-60) mg/dL TSH, Ultra Sensitive (0.358-3.740) mIU/mL Ethyl Alcohol (0.000-0.080) g/dL Laboratory Tests 12/14/19 12/14/19 12/14/19 Range/Units 01:59 01:59 01:59 WBC 11.2 H (4.0-10.2) K/uL RBC 4.06 L (4.33-5.41) M/uL Hgb 13.7 D (13.1-16.8) g/dL Hct 38.9 L (39.0-49.0) % MCV 95.8 (84.0-98.0) fL MCH 33.7 H (28.2-33.3) pg MCHC 35.2 (31.7-36.0) g/dL RDW 14.3 H (11.2-14.1) % Plt Count 194 (150-350) K/uL Neut % (Auto) 84.9 H (45.0-80.0) % Lymph % (Auto) 3.9 L (10.0-50.0) % [place] % (Auto) 6.9 (2.0-14.0) % Eos % (Auto) 4.0 (0.0-5.0) % Baso % (Auto) 0.3 (0.0-2.0) % Neut # (Auto) 9.46 H (1.40-7.00) K/uL Lymph # (Auto) 0.44 L (0.50-3.50) K/uL [place] # (Auto) 0.77 (0.00-1.00) K/uL Eos # (Auto) 0.45 (0.00-0.50) K/uL Baso # (Auto) 0.03 (0.00-0.20) K/uL PT 10.9 D (9.5-12.0) SEC INR 1.1 APTT 27.1 (24.5-32.8) SEC D-Dimer, Quantitative (0-400) ng/mL Sodium 125 L D (136-145) mmol/L Potassium 3.7 (3.5-5.1) mmol/L Chloride 88 L (98-107) mmol/L Carbon Dioxide 29.9 (21.0-32.0) mmol/L BUN 3 L (7-18) mg/dL Creatinine 0.59 (0.51-1.17) mg/dL Est Cr Clr Drug Dosing 119.52 mL/min Estimated GFR (MDRD) > 60 mL/min Glucose 115 H (74-106) mg/dL Hemoglobin A1c (4.3-5.7) % Lactic Acid (0.4-2.0) mmol/L Uric Acid (2.6-7.2) mg/dL Calcium 8.5 (8.5-10.1) mg/dL Magnesium 2.0 (1.8-2.4) mg/dL Total Bilirubin 1.0 (0.2-1.0) mg/dL AST 32 (15-37) U/L ALT 26 (12-78) U/L Alkaline Phosphatase 71 (46-116) IU/L Creatine Kinase 81 (26-308) U/L Creatine Kinase Index 2.8 H (0.0-2.5) % CK-MB (CK-2) 2.30 (0.00-3.60) ng/mL Troponin I 0.002 (0.000-0.056) ng/mL NT-Pro-B Natriuret Pep (0-125) pg/mL Total Protein 7.5 (6.4-8.2) g/dL Albumin 3.6 (3.4-5.0) g/dL Triglycerides (30-150) mg/dL Cholesterol (100-200) mg/dL LDL Cholesterol, Calc (0-100) mg/dL HDL Cholesterol (40-60) mg/dL TSH, Ultra Sensitive 27.213 H (0.358-3.740) mIU/mL Ethyl Alcohol (0.000-0.080) g/dL 12/14/19 12/14/19 12/14/19 Range/Units 01:59 01:59 01:59 WBC (4.0-10.2) K/uL RBC (4.33-5.41) M/uL Hgb (13.1-16.8) g/dL Hct (39.0-49.0) % MCV (84.0-98.0) fL MCH (28.2-33.3) pg MCHC (31.7-36.0) g/dL RDW (11.2-14.1) % Plt Count (150-350) K/uL Neut % (Auto) (45.0-80.0) % Lymph % (Auto) (10.0-50.0) % [place] % (Auto) (2.0-14.0) % Eos % (Auto) (0.0-5.0) % Baso % (Auto) (0.0-2.0) % Neut # (Auto) (1.40-7.00) K/uL Lymph # (Auto) (0.50-3.50) K/uL [place] # (Auto) (0.00-1.00) K/uL Eos # (Auto) (0.00-0.50) K/uL Baso # (Auto) (0.00-0.20) K/uL PT (9.5-12.0) SEC INR APTT (24.5-32.8) SEC D-Dimer, Quantitative 2660 H (0-400) ng/mL Sodium (136-145) mmol/L Potassium (3.5-5.1) mmol/L Chloride (98-107) mmol/L Carbon Dioxide (21.0-32.0) mmol/L BUN (7-18) mg/dL Creatinine (0.51-1.17) mg/dL Est Cr Clr Drug Dosing mL/min Estimated GFR (MDRD) mL/min Glucose (74-106) mg/dL Hemoglobin A1c (4.3-5.7) % Lactic Acid 1.5 (0.4-2.0) mmol/L Uric Acid 4.0 (2.6-7.2) mg/dL Calcium (8.5-10.1) mg/dL Magnesium (1.8-2.4) mg/dL Total Bilirubin (0.2-1.0) mg/dL AST (15-37) U/L ALT (12-78) U/L Alkaline Phosphatase (46-116) IU/L Creatine Kinase (26-308) U/L Creatine Kinase Index (0.0-2.5) % CK-MB (CK-2) (0.00-3.60) ng/mL Troponin I (0.000-0.056) ng/mL NT-Pro-B Natriuret Pep 346 H (0-125) pg/mL Total Protein (6.4-8.2) g/dL Albumin (3.4-5.0) g/dL Triglycerides (30-150) mg/dL Cholesterol (100-200) mg/dL LDL Cholesterol, Calc (0-100) mg/dL HDL Cholesterol (40-60) mg/dL TSH, Ultra Sensitive (0.358-3.740) mIU/mL Ethyl Alcohol 0.133 H (0.000-0.080) g/dL 12/14/19 12/14/19 12/14/19 Range/Units 09:15 09:15 14:43 WBC (4.0-10.2) K/uL RBC (4.33-5.41) M/uL Hgb (13.1-16.8) g/dL Hct (39.0-49.0) % MCV (84.0-98.0) fL MCH (28.2-33.3) pg MCHC (31.7-36.0) g/dL RDW (11.2-14.1) % Plt Count (150-350) K/uL Neut % (Auto) (45.0-80.0) % Lymph % (Auto) (10.0-50.0) % [place] % (Auto) (2.0-14.0) % Eos % (Auto) (0.0-5.0) % Baso % (Auto) (0.0-2.0) % Neut # (Auto) (1.40-7.00) K/uL Lymph # (Auto) (0.50-3.50) K/uL [place] # (Auto) (0.00-1.00) K/uL Eos # (Auto) (0.00-0.50) K/uL Baso # (Auto) (0.00-0.20) K/uL PT (9.5-12.0) SEC INR APTT (24.5-32.8) SEC D-Dimer, Quantitative (0-400) ng/mL Sodium (136-145) mmol/L Potassium (3.5-5.1) mmol/L Chloride (98-107) mmol/L Carbon Dioxide (21.0-32.0) mmol/L BUN (7-18) mg/dL Creatinine (0.51-1.17) mg/dL Est Cr Clr Drug Dosing mL/min Estimated GFR (MDRD) mL/min Glucose (74-106) mg/dL Hemoglobin A1c 5.0 (4.3-5.7) % Lactic Acid (0.4-2.0) mmol/L Uric Acid (2.6-7.2) mg/dL Calcium (8.5-10.1) mg/dL Magnesium (1.8-2.4) mg/dL Total Bilirubin (0.2-1.0) mg/dL AST (15-37) U/L ALT (12-78) U/L Alkaline Phosphatase (46-116) IU/L Creatine Kinase 58 (26-308) U/L Creatine Kinase Index 1.9 (0.0-2.5) % CK-MB (CK-2) 1.10 (0.00-3.60) ng/mL Troponin I 0.000 (0.000-0.056) ng/mL NT-Pro-B Natriuret Pep (0-125) pg/mL Total Protein (6.4-8.2) g/dL Albumin (3.4-5.0) g/dL Triglycerides 42 (30-150) mg/dL Cholesterol 180 (100-200) mg/dL LDL Cholesterol, Calc 48 (0-100) mg/dL HDL Cholesterol 124 H (40-60) mg/dL TSH, Ultra Sensitive (0.358-3.740) mIU/mL Ethyl Alcohol (0.000-0.080) g/dL [place] Results Last 24 Hours: None Med Orders - Current: Current Medications Acetaminophen (Tylenol) 650 mg PO Q4H PRN PRN Reason: Pain Albuterol (Ventolin Hfa) 0 gm INH Q4H PRN PRN Reason: Dyspnea Enoxaparin Sodium (Lovenox) 80 mg SUBCUT Q24H [facility] Last Admin: 12/14/19 02:54 Dose: 80 mg Documented by: Furosemide (Lasix) 40 mg IVPUSH Q8H [facility] Levothyroxine Sodium (Synthroid) 150 mcg PO ACBREAKFAST [facility] Lisinopril (Prinivil) 10 mg PO DAILY [facility] Last Admin: 12/14/19 09:14 Dose: 10 mg Documented by: Lorazepam (Ativan) 1 mg PO Q4H PRN PRN Reason: Agitation Mometasone Furoate/Formoterol Fumar (Dulera 100-5 Mcg) 2 puff IH BID [facility] Last Admin: 12/14/19 09:10 Dose: 1 inh Documented by: Pantoprazole Sodium (Protonix Iv) 40 mg IVPUSH Q12H [facility] Last Admin: 12/14/19 06:01 Dose: 40 mg Documented by: Potassium Chloride (Klor-Con M20) 20 meq PO TID [facility] Last Admin: 12/14/19 13:34 Dose: 20 meq Documented by: Sodium Chloride (Saline Flush) 10 ml FLUSH ASDIRECTED PRN PRN Reason: Keep Vein Open Last Admin: 12/14/19 06:01 Dose: 10 ml Documented by: Sodium Chloride (Saline Flush) 10 ml FLUSH Q12HR PRN PRN Reason: Keep Vein Open Temazepam (Restoril) 15 mg PO BEDTIME PRN PRN Reason: Insomnia Tiotropium Connell (Spiriva Handihaler) 18 mcg INH DAILY [facility] Last Admin: 12/14/19 09:11 Dose: 2 inh Documented by: Warfarin Sodium (Coumadin) 6 mg PO [id number]@1800 [facility] Warfarin Sodium (Coumadin) 5 mg PO [email or web address]@1800 [facility] Discontinued Medications Famotidine (Pepcid) 40 mg IVPUSH ONETIME ONE Stop: 12/14/19 02:09 Last Admin: 12/14/19 02:13 Dose: 40 mg Documented by: Furosemide (Lasix) 40 mg IVPUSH ONETIME ONE Stop: 12/14/19 05:31 Last Admin: 12/14/19 06:01 Dose: 40 mg Documented by: Iopamidol (Isovue-370 (76%)) 100 ml IVPUSH ONETIME ONE Stop: 12/14/19 02:55 Last Admin: 12/14/19 03:37 Dose: 100 ml Documented by: Iopamidol (Isovue-370 (76%)) Confirm Administered Dose 100 ml .ROUTE .STK-MED ONE Stop: 12/14/19 02:57 Last Admin: 12/14/19 09:08 Dose: Not Given Documented by: Levothyroxine Sodium (Synthroid) 125 mcg PO ACBREAKFAST [facility] Last Admin: 12/14/19 09:09 Dose: 125 mcg Documented by: Warfarin Sodium (Coumadin) 5 mg PO ONETIME ONE Stop: 12/14/19 05:12 Last Admin: 12/14/19 06:02 Dose: 5 mg Documented by: - Exam Quality Assessment: Supplemental Oxygen, DVT Prophylaxis (Coumadin and Lovenox). No: Central Line/PICC, Urine Catheter, Skin Breakdown, Restraints General: Alert, Oriented, Cooperative, No Acute Distress, Other (No DTs since admission) HEENT: Pupils Equal, Pupils Reactive, EOMI, Mucous Membr. Moist/[place]. No: Scleral Icterus Neck: Supple, No JVD, No Thyromegaly, +2 Carotid Pulse wo Bruit. No: Lymphadenopathy Lungs: Normal Respiratory Effort, Rales (Improved mild bilateral basilar rales). No: Rhonchi, Wheezing Cardiovascular: Regular Rate, Regular Rhythm, No Murmurs. No: Gallops, Rubs GI/Abdominal Exam: Normal Bowel Sounds, Soft, Non-Tender, No Organomegaly, No Distention, No Abnormal Bruit, No Mass. No: Guarding (Male) Exam: Deferred Back Exam: Full Range of Motion, Other (Mild kyphosis). No: CVA Tenderness (L), CVA Tenderness (R), Muscle Spasm, Paraspinal Tenderness, Vertebral Tenderness Extremities: Normal Range of Motion, Non-Tender, Normal Capillary Refill, Pedal Edema (Improved trace+1 bilateral pedal/pretibial edema), Arm Pain (Occasional left shoulder pain as above). No: Joint Swelling Peripheral Pulses: 2+: Radial (L), Radial (R), Dorsalis Pedis (L), Dorsalis Pedis (R) Skin: Warm, Dry, Intact Neurological: No New Focal Deficit, Other (No DTs) Psy/Mental Status: Alert, Normal Affect, Normal Mood. No: Agitated, Hallucinations, Withdrawal Symptoms EKG INTERPRETATION EKG Date: 12/14/19 Time: 09:05 Rhythm: NSR Rate (Beats/Min): 93 [place]: Normal (Neutral cardiac axis) P-Wave: Enlarged (Stable moderate diffuse biphasic P waves) QRS: Normal (0.09 seconds with repolarization changes and nonspecific ST changes in leads II, III, and aVF likely secondary to peak T waves.) ST-T: Normal (Stable T wave inversion in lead aVL) QT: Normal [place]/PQ Interval: 0.18 seconds with pulmonary hypertension by EKG Comparison: No Change (Last EKG at 1:43 AM on 12/14/2019) EKG Interpretation Comments: 1. No acute ischemic changes 2. Repolarization changes 3. Pulmonary hypertension by EKG Sepsis Event Note - Evaluation Sepsis Screening Result: No Definite Risk - Focused Exam Vital Signs: Vital Signs Temp Pulse Resp BP BP Pulse Ox 12/14/19 12:00 37.3 C 75 18 102/70 92 L 12/14/19 09:14 157/96 H 12/14/19 08:00 37.5 C 80 16 157/96 H 92 L - Problem List & Annotations (1) Chest pain SNOMED Code(s): 09913907 Code(s): R07.9 - CHEST PAIN, UNSPECIFIED Status: Acute Priority: High Current Visit: Yes Qualifiers: Chest pain type: precordial pain Qualified Code(s): R07.2 - Precordial pain Annotation/Comment:: Chest pain has resolved since admission. Only mild nonspecific arthritic left shoulder pain at this time. Chest pain protocol was initiated upon arrival of the patient into our facility. Note baby aspirin x4 were given by the registered nurse behavioral health prior to arrival in spite of his current Coumadin therapy. Brilinta was held, however subcu Lovenox was initiated at the VTE dose secondary to his d-dimer elevation. Initiated standard rule out [facility] orders with cardiology consultation depending on his clinical course. Probable Cardiolite stress test on an outpatient basis. (2) CHF (congestive heart failure) SNOMED Code(s): 51610429 Code(s): I50.9 - HEART FAILURE, UNSPECIFIED Status: Acute Priority: High Current Visit: Yes Onset Date: 12/14/19 Qualifiers: Heart failure type: unspecified Heart failure chronicity: acute Qualified Code(s): I50.9 - Heart failure, unspecified Annotation/Comment:: Note hyponatremia with initiation of IV Lasix therapy with caution. The patient is on an JAMES inhibitor. Echocardiogram on an outpatient basis. (3) D-dimer, elevated SNOMED Code(s): 267375229 Code(s): R79.89 - OTHER SPECIFIED ABNORMAL FINDINGS OF BLOOD CHEMISTRY Status: Acute Priority: High Current Visit: Yes Onset Date: 12/14/19 Annotation/Comment:: Previous history of recurrent DVTs with negative CTA of the chest shortly after admission however positive venous Doppler studies of the lower extremities this morning for returned right popliteal DVT. Note subtherapeutic INR on admission. Subcutaneous Lovenox initiated in the emergency room as above. INR scheduled for 12/14 with discontinuation of Lovenox once his INR is therapeutic. (4) Alcohol abuse SNOMED Code(s): 77001306 Code(s): F10.10 - ALCOHOL ABUSE, UNCOMPLICATED Status: Chronic Priority: Medium Current Visit: Yes Annotation/Comment:: Patient denies, however alcohol abuse by medical records with elevated alcohol level at time of arrival. DT precautions were initiated with no apparent previous history of DTs, etc. (5) Hyponatremia SNOMED Code(s): 15909489 Code(s): E87.1 - HYPO-OSMOLALITY AND HYPONATREMIA Status: Acute Priority: Low Current Visit: Yes Annotation/Comment:: Note CHF as above. Known history of hyponatremia. Consider 3% sodium chloride infusion depending on his clinical course. (6) Hypothyroidism (acquired) SNOMED Code(s): 246865115 Code(s): E03.9 - HYPOTHYROIDISM, UNSPECIFIED Status: Chronic Priority: High Current Visit: Yes Annotation/Comment:: Patient denies medication noncompliance however significantly elevated TSH today. Previous dose of Synthroid was given on admission, however this will be increased on 12/14 with recommended repeat TSH in 4 weeks. Further work-up depending on his clinical course. (7) Metastatic primary lung cancer SNOMED Code(s): 39844819, 598602222 Code(s): C34.90 - MALIGNANT NEOPLASM OF UNSP PART OF UNSP BRONCHUS OR LUNG Status: Chronic Priority: High Current Visit: Yes Qualifiers: Laterality: left Qualified Code(s): C34.92 - Malignant neoplasm of unspecified part of left bronchus or lung Annotation/Comment:: Patient has stopped experimental chemotherapy in March 2019 by his history. He still wishes to be a full code, however. Prognosis guarded secondary to reoccurrence as above and his previous weight loss from his lung cancer. (8) Peptic reflux disease SNOMED Code(s): 391012143 Code(s): K21.9 - GASTRO-ESOPHAGEAL REFLUX DISEASE WITHOUT ESOPHAGITIS Status: Chronic Priority: Medium Current Visit: Yes Annotation/Comment:: Nonsymptomatic at this time. High-dose IV Pepcid given as GI prophylaxis. (9) Tobacco abuse counseling SNOMED Code(s): 264219141, 891081095, 016807676 Code(s): Z71.6 - TOBACCO ABUSE COUNSELING Status: Chronic Priority: Medium Current Visit: Yes Annotation/Comment:: Tobacco cessation strongly encouraged especially in light of his lung cancer with tobacco cessation information to be provided at discharge. (10) Osteoarthritis SNOMED Code(s): 799942214 Code(s): M19.90 - UNSPECIFIED OSTEOARTHRITIS, UNSPECIFIED SITE Status: Chronic Priority: Medium Current Visit: Yes Qualifiers: Osteoarthritis location: multiple joints Osteoarthritis type: primary Qualified Code(s): M89.49 - Other hypertrophic osteoarthropathy, multiple sites Annotation/Comment:: Note additional history of rheumatoid arthritis. Stable by patient history although some nonspecific left shoulder pain today. Note history of disability secondary to chronic low back pain. (11) Hyperlipidemia SNOMED Code(s): 34583913 Code(s): E78.5 - HYPERLIPIDEMIA, UNSPECIFIED Status: Chronic Priority: Medium Current Visit: Yes Qualifiers: Hyperlipidemia type: unspecified Qualified Code(s): E78.5 - Hyperlipidemia, unspecified Annotation/Comment:: Lipid panel on 12/13 was negative with excellent HDL. Glycosylated hemoglobin normal at 5.0% (12) Hypertension SNOMED Code(s): 91943785 Code(s): I10 - ESSENTIAL (PRIMARY) HYPERTENSION Status: Chronic Priority: Medium Current Visit: Yes Qualifiers: Hypertension type: essential hypertension Qualified Code(s): I10 - Essential (primary) hypertension Annotation/Comment:: Good control in the emergency room and during hospitalization. (13) PVCs (premature ventricular contractions) SNOMED Code(s): 35248168 Code(s): I49.3 - VENTRICULAR PREMATURE DEPOLARIZATION Status: Acute Priority: Medium Current Visit: Yes Onset Date: 12/14/19 Annotation/Comment:: Newly diagnosed. Observe for now. - Problem List Review Problem List Initiated/Reviewed/Updated: Yes - My Orders Last 24 Hours: My Active Orders 12/14/19 01:59 Cardiac Monitoring [RC] Q2HR 12/14/19 02:01 Chest 1V Frontal [CR] Stat 12/14/19 02:08 Vital Signs [RC] Q4HR Sodium Chloride 0.9% [Saline Flush] 10 ml FLUSH ASDIRECTED PRN Peripheral IV Insertion Adult [OM.PC] Stat Resuscitation Status Stat 12/14/19 02:42 Chest PE [Ang Chest] [CT] Stat 12/14/19 03:00 Enoxaparin [Lovenox] 80 mg SUBCUT Q24H 12/14/19 05:11 Acetaminophen [TylenoL] 650 mg PO Q4H PRN Sodium Chloride 0.9% [Saline Flush] 10 ml FLUSH Q12HR PRN Temazepam [Restoril] 15 mg PO BEDTIME PRN 12/14/19 05:12 Antiembolic Devices [RC] Communication Order [RC] PER UNIT ROUTINE EKG Documentation Completion [RC] ASDIRECTED Height and Weight [RC] DAILY Intake and Output Strict [RC] Oxygen Therapy [RC] .PRN Pulse Oximetry [RC] .PRN Up With Assistance [RC] ASDIRECTED Vaccines to be Administered [RC] .DISCHARGE OCCULT BLOOD DIAGNOSTIC [OP] Stat Antiembolic Hose [OM.PC] Routine CHF Questionnaire [COMM] Routine DVT/VTE Prophylaxis Reflex [OM.PC] Routine GM Immunization Reflex [OM.PC] Click to Edit 12/14/19 05:15 H PYLORI STOOL ANTIGEN [MREF] ONETIME 12/14/19 05:16 LORazepam [Ativan] 1 mg PO Q4H PRN 12/14/19 05:17 Venous Doppler Lwr Ext Bi [US] Urgent 12/14/19 05:29 Albuterol [Ventolin HFA] 0 gm INH Q4H PRN 12/14/19 05:30 Pantoprazole [ProTONIX IV] 40 mg IVPUSH Q12H 12/14/19 08:00 Mometasone/Formoterol [Dulera 100-5 MCG] 2 puff IH BID Potassium Chloride [Klor-Con M20] 20 meq PO TID Tiotropium [Spiriva HandiHaler] 18 mcg INH DAILY lisinopriL [Prinivil] 10 mg PO DAILY 12/14/19 Lunch Fluid Restriction [DIET] 12/14/19 16:00 Furosemide [Lasix] 40 mg IVPUSH Q8H 12/14/19 18:00 Warfarin [Coumadin] 6 mg PO SuTuThSa@1800 12/15/19 05:11 CBC WITH AUTO DIFF [HEME] Routine CK W CKMB [CHEM] Routine COMPREHENSIVE METABOLIC PN,CMP [CHEM] Routine D-DIMER QUANTITATIVE [COAG] Routine INR,PT,PROTHROMBIN TIME [COAG] Routine PRO B-TYPE NATRIUR PEPT,BNPPRO [CHEM] Routine TROPONIN I [CHEM] Routine EKG 12 Lead [EK] Routine 12/15/19 05:12 EKG Documentation Completion [RC] ASDIRECTED 12/15/19 07:30 Levothyroxine [Synthroid] 150 mcg PO ACBREAKFAST 12/15/19 18:00 Warfarin [Coumadin] 5 mg PO MoWeFr@1800 - Assessment Assessment:: As above - Plan Plan:: As above. Extensive precautions were given to the patient, who is in agreement with the treatment plan. The patient will require about 2-3 days of inpatient/acute care secondary to multiple health problems as above. Shahab vyas physician assumes care in the a.m. Close follow-up of patient's INR, medical therapy, etc. as above.
[2019-12-14] MEDS: Furosemide 40 MG/4 ML VIAL IVPUSH SCH (15:57)
[2019-12-14] MEDS ORDERED: Warfarin 2 MG Tab PO SCH (18:00)
[2019-12-15] MEDS: Furosemide 40 MG/4 ML VIAL IVPUSH SCH ×2 (01:07→08:33)
[2019-12-15] MEDS: LORazepam 1 MG Tab PO PRN ×2 (02:09→11:26)
[2019-12-15] MEDS: Pantoprazole 40 MG Vial IVPUSH SCH ×2 (08:32→19:12)
[2019-12-15] MEDS: Enoxaparin 80 MG/0.8 ML Syringe SUBCUT SCH (08:33)
[2019-12-15] MEDS: Potassium Chloride 20 MEQ Tab.ER PO SCH ×3 (08:33→19:12)
[2019-12-15] MEDS: Levothyroxine 150 MCG Tab PO SCH (08:33)
[2019-12-15] MEDS: Sodium Chloride 0.9% 10 ML Syringe FLUSH PRN (08:33)
[2019-12-15] MEDS: Lisinopril 10 MG Tab PO SCH (08:34)
[2019-12-15] MEDS: Formoterol/Mometasone 100-5 MCG 8.8 GM Inhaler IH SCH ×2 (08:36→19:13)
[2019-12-15] MEDS: Tiotropium Inhaler 18 MCG Inhalation Powder Cap Kit of 5 INH SCH (08:37)
[2019-12-15 08:52] LABS: CHLORIDE,CL 95 mmol/L (98-107); SODIUM,NA 130 mmol/L (136-145)
[2019-12-15] MEDS ORDERED: LORazepam 2 MG/ML SDV IVPUSH ONE (12:55)
[2019-12-15] MEDS ORDERED: Sodium Chloride 0.9% 250 ML IV ONE (13:13)
[2019-12-15] MEDS ORDERED: Sodium Chloride 0.9% 500 ML IV ONE (13:23)
[2019-12-15] MEDS ORDERED: Sodium Chloride 0.9% 1,000 ML IV ONE (13:42)
[2019-12-15] MEDS ORDERED: Warfarin 5 MG Tab PO SCH (18:00)
--- NOTE | 2019-12-15 20:16 | PCM.PN ---
- General Info Date of Service: 12/15/19 Admission Dx/Problem (Free Text): 1. Chest pain 2. DVT 3. COPD Subjective Update: No chest pain complaint since admission. No new complaints. Is feeling like he is at usual baseline Functional Status: Reports: Pain Controlled, Tolerating Diet, Ambulating, Urinating. Denies: New Symptoms - Review of Systems General: Reports: No Symptoms HEENT: Denies: Headaches, Post Nasal Drip, Sinus Congestion, Sore Throat, Rhinitis, Visual Changes Pulmonary: Reports: No Symptoms Cardiovascular: Reports: No Symptoms Gastrointestinal: Reports: No Symptoms Genitourinary: Reports: No Symptoms Musculoskeletal: Reports: Other (chronic arthritis/no acute changes) Skin: Denies: Rash Neurological: Denies: Confusion, Dizziness, Headache, Trouble Speaking, Change in Speech Psychiatric: Reports: No Symptoms - Patient Data Vitals - Most Recent: Last Vital Signs Temp 36.4 C 12/15/19 19:16 Pulse 88 12/15/19 19:16 Resp 17 12/15/19 19:16 BP 121/70 12/15/19 19:16 Pulse Ox 96 12/15/19 19:16 Weight - Most Recent: 70.942 kg I&O - Last 24 Hours: Intake & Output 12/15/19 12/15/19 12/15/19 06:59 14:59 22:59 Intake Total 376 161 5063 Output Total 300 100 Balance -483 390 0041 Lab Results Last 24 Hours: Laboratory Results - last 24 hr 12/15/19 12/15/19 12/15/19 Range/Units 08:05 08:05 08:05 WBC 7.5 (4.0-10.2) K/uL RBC 3.92 L (4.33-5.41) M/uL Hgb 13.3 (13.1-16.8) g/dL Hct 38.1 L (39.0-49.0) % MCV 97.2 (84.0-98.0) fL MCH 33.9 H (28.2-33.3) pg MCHC 34.9 (31.7-36.0) g/dL RDW 14.6 H (11.2-14.1) % Plt Count 160 (150-350) K/uL Neut % (Auto) 81.8 H (45.0-80.0) % Lymph % (Auto) 4.6 L (10.0-50.0) % Tripp % (Auto) 12.1 (2.0-14.0) % Eos % (Auto) 1.2 (0.0-5.0) % Baso % (Auto) 0.3 (0.0-2.0) % Neut # (Auto) 6.10 (1.40-7.00) K/uL Lymph # (Auto) 0.34 L (0.50-3.50) K/uL Tripp # (Auto) 0.90 (0.00-1.00) K/uL Eos # (Auto) 0.09 (0.00-0.50) K/uL Baso # (Auto) 0.02 (0.00-0.20) K/uL PT (9.5-12.0) SEC INR D-Dimer, Quantitative 2580 H (0-400) ng/mL Sodium 130 L (136-145) mmol/L Potassium 4.1 (3.5-5.1) mmol/L Chloride 95 L (98-107) mmol/L Carbon Dioxide 29.4 (21.0-32.0) mmol/L BUN 12 (7-18) mg/dL Creatinine 0.80 (0.51-1.17) mg/dL Est Cr Clr Drug Dosing 87.01 mL/min Estimated GFR (MDRD) > 60 mL/min Glucose 104 (74-106) mg/dL Calcium 8.8 (8.5-10.1) mg/dL Magnesium (1.8-2.4) mg/dL Total Bilirubin 1.2 H (0.2-1.0) mg/dL AST 17 (15-37) U/L ALT 18 (12-78) U/L Alkaline Phosphatase 54 (46-116) IU/L Creatine Kinase 40 (26-308) U/L Creatine Kinase Index 1.5 (0.0-2.5) % CK-MB (CK-2) 0.60 (0.00-3.60) ng/mL Troponin I 0.000 (0.000-0.056) ng/mL NT-Pro-B Natriuret Pep 961 H (0-125) pg/mL Total Protein 6.6 (6.4-8.2) g/dL Albumin 2.9 L (3.4-5.0) g/dL 12/15/19 12/15/19 Range/Units 08:05 08:05 WBC (4.0-10.2) K/uL RBC (4.33-5.41) M/uL Hgb (13.1-16.8) g/dL Hct (39.0-49.0) % MCV (84.0-98.0) fL MCH (28.2-33.3) pg MCHC (31.7-36.0) g/dL RDW (11.2-14.1) % Plt Count (150-350) K/uL Neut % (Auto) (45.0-80.0) % Lymph % (Auto) (10.0-50.0) % Tripp % (Auto) (2.0-14.0) % Eos % (Auto) (0.0-5.0) % Baso % (Auto) (0.0-2.0) % Neut # (Auto) (1.40-7.00) K/uL Lymph # (Auto) (0.50-3.50) K/uL Tripp # (Auto) (0.00-1.00) K/uL Eos # (Auto) (0.00-0.50) K/uL Baso # (Auto) (0.00-0.20) K/uL PT 14.7 H D (9.5-12.0) SEC INR 1.5 D-Dimer, Quantitative (0-400) ng/mL Sodium (136-145) mmol/L Potassium (3.5-5.1) mmol/L Chloride (98-107) mmol/L Carbon Dioxide (21.0-32.0) mmol/L BUN (7-18) mg/dL Creatinine (0.51-1.17) mg/dL Est Cr Clr Drug Dosing mL/min Estimated GFR (MDRD) mL/min Glucose (74-106) mg/dL Calcium (8.5-10.1) mg/dL Magnesium 2.2 (1.8-2.4) mg/dL Total Bilirubin (0.2-1.0) mg/dL AST (15-37) U/L ALT (12-78) U/L Alkaline Phosphatase (46-116) IU/L Creatine Kinase (26-308) U/L Creatine Kinase Index (0.0-2.5) % CK-MB (CK-2) (0.00-3.60) ng/mL Troponin I (0.000-0.056) ng/mL NT-Pro-B Natriuret Pep (0-125) pg/mL Total Protein (6.4-8.2) g/dL Albumin (3.4-5.0) g/dL Janak Results Last 24 Hours: Microbiology 12/14/19 16:07 Stool Occult Blood (JANAK) - Final Stool / Feces NEGATIVE OCCULT BLOOD REFERENCE RANGE: NEGATIVE Med Orders - Current: Current Medications Acetaminophen (Tylenol) 650 mg PO Q4H PRN PRN Reason: Pain Albuterol (Ventolin Hfa) 0 gm INH Q4H PRN PRN Reason: Dyspnea Enoxaparin Sodium (Lovenox) 80 mg SUBCUT Q24H [facility] Last Admin: 12/15/19 08:33 Dose: 80 mg Documented by: Furosemide (Lasix) 40 mg IVPUSH DAILY [facility] Levothyroxine Sodium (Levothyroxine) 150 mcg PO ACBREAKFAST [facility] Last Admin: 12/15/19 08:33 Dose: 150 mcg Documented by: Lisinopril (Prinivil) 10 mg PO DAILY [facility] Last Admin: 12/15/19 08:34 Dose: 10 mg Documented by: Lorazepam (Ativan) 1 mg PO Q4H PRN PRN Reason: Agitation Last Admin: 12/15/19 11:26 Dose: 1 mg Documented by: Mometasone Furoate/Formoterol Fumar (Dulera 100-5 Mcg) 2 puff IH BID [facility] Last Admin: 12/15/19 19:13 Dose: 2 inh Documented by: Pantoprazole Sodium (Protonix Iv) 40 mg IVPUSH Q12HR [facility] Last Admin: 12/15/19 19:12 Dose: Not Given Documented by: Potassium Chloride (Klor-Con M20) 20 meq PO TID [facility] Last Admin: 12/15/19 19:12 Dose: 20 meq Documented by: Sodium Chloride (Saline Flush) 10 ml FLUSH ASDIRECTED PRN PRN Reason: Keep Vein Open Last Admin: 12/15/19 08:33 Dose: 10 ml Documented by: Sodium Chloride (Saline Flush) 10 ml FLUSH Q12HR PRN PRN Reason: Keep Vein Open Temazepam (Restoril) 15 mg PO BEDTIME PRN PRN Reason: Insomnia Tiotropium [place] (Spiriva Handihaler) 18 mcg INH DAILY [facility] Last Admin: 12/15/19 08:37 Dose: 18 mcg Documented by: Warfarin Sodium (Coumadin) 6 mg PO SuTuThSa@1800 [facility] Last Admin: 12/14/19 18:08 Dose: 6 mg Documented by: Warfarin Sodium (Coumadin) 5 mg PO MoWeFr@1800 [facility] Last Admin: 12/15/19 19:11 Dose: 5 mg Documented by: Discontinued Medications Enoxaparin Sodium (Lovenox) 80 mg SUBCUT Q24H [facility] Last Admin: 12/14/19 02:54 Dose: 80 mg Documented by: Famotidine (Pepcid) 40 mg IVPUSH ONETIME ONE Stop: 12/14/19 02:09 Last Admin: 12/14/19 02:13 Dose: 40 mg Documented by: Furosemide (Lasix) 40 mg IVPUSH Q8H [facility] Last Admin: 12/15/19 08:33 Dose: 40 mg Documented by: Furosemide (Lasix) 40 mg IVPUSH ONETIME ONE Stop: 12/14/19 05:31 Last Admin: 12/14/19 06:01 Dose: 40 mg Documented by: Sodium Chloride (Normal Saline) 250 mls @ 999 mls/hr IV ONETIME ONE Stop: 12/15/19 13:28 Last Admin: 12/15/19 16:03 Dose: Not Given Documented by: Sodium Chloride (Normal Saline) 500 mls @ 999 mls/hr IV ONETIME ONE Stop: 12/15/19 13:53 Last Admin: 12/15/19 13:44 Dose: Not Given Documented by: Sodium Chloride (Normal Saline) 1,000 mls @ 999 mls/hr IV .BOLUS ONE Stop: 12/15/19 14:42 Last Admin: 12/15/19 13:30 Dose: 999 mls/hr Documented by: Iopamidol (Isovue-370 (76%)) 100 ml IVPUSH ONETIME ONE Stop: 12/14/19 02:55 Last Admin: 12/14/19 03:37 Dose: 100 ml Documented by: Iopamidol (Isovue-370 (76%)) Confirm Administered Dose 100 ml .ROUTE .STK-MED ONE Stop: 12/14/19 02:57 Last Admin: 12/14/19 09:08 Dose: Not Given Documented by: Levothyroxine Sodium (Synthroid) 125 mcg PO ACBREAKFAST [facility] Last Admin: 12/14/19 09:09 Dose: 125 mcg Documented by: Lorazepam (Ativan) 0.5 mg IVPUSH ONETIME ONE Stop: 12/15/19 12:56 Last Admin: 12/15/19 13:16 Dose: 0.5 mg Documented by: Pantoprazole Sodium (Protonix Iv) 40 mg IVPUSH Q12H [facility] Last Admin: 12/14/19 18:08 Dose: 40 mg Documented by: Warfarin Sodium (Coumadin) 5 mg PO ONETIME ONE Stop: 12/14/19 05:12 Last Admin: 12/14/19 06:02 Dose: 5 mg Documented by: - Exam Quality Assessment: DVT Prophylaxis General: Alert, Oriented, Cooperative, No Acute Distress HEENT: Pupils Equal, Pupils Reactive, EOMI, Mucous Membr. Moist/[place] Neck: Supple Lungs: Clear to Auscultation, Normal Respiratory Effort Cardiovascular: Regular Rate, Regular Rhythm GI/Abdominal Exam: Normal Bowel Sounds, Soft, Non-Tender, No Distention (Male) Exam: Deferred Back Exam: No: CVA Tenderness (L), CVA Tenderness (R), Muscle Spasm Extremities: Non-Tender, No Pedal Edema, Normal Capillary Refill Skin: Warm, Dry Neurological: No New Focal Deficit Psy/Mental Status: Alert, Normal Affect EKG INTERPRETATION EKG Date: 12/15/19 Time: 08:43 Rhythm: NSR Rate (Beats/Min): 88 [place]: Normal P-Wave: Present QRS: Normal ST-T: Normal QT: Normal Sepsis Event Note - Evaluation Sepsis Screening Result: No Definite Risk - Focused Exam Vital Signs: Vital Signs Temp Pulse Resp BP BP BP Pulse Ox 12/15/19 19:16 36.4 C 88 17 121/70 96 12/15/19 14:00 37.1 C 155 H 12 84/62 L 91 L 12/15/19 08:34 110/73 - Problem List & Annotations (1) Chest pain SNOMED Code(s): 71296983 Code(s): R07.9 - CHEST PAIN, UNSPECIFIED Status: Acute Priority: High Current Visit: Yes Qualifiers: Chest pain type: precordial pain Qualified Code(s): R07.2 - Precordial pain Annotation/Comment:: Chest pain has resolved since admission. Only mild nonspecific arthritic left shoulder pain at this time. Chest pain protocol was initiated upon arrival of the patient into our facility. Note baby aspirin x4 were given by the new patient escort prior to arrival in spite of his current Coumadin therapy. Brilinta was held, however subcu Lovenox was initiated at the VTE dose secondary to his d-dimer elevation. Initiated standard rule out NC orders. Troponins have been normal. Probable Cardiolite stress test on an outpatient b asis. (2) D-dimer, elevated SNOMED Code(s): 582940666 Code(s): R79.89 - OTHER SPECIFIED ABNORMAL FINDINGS OF BLOOD CHEMISTRY Status: Acute Priority: High Current Visit: Yes Onset Date: 12/14/19 Annotation/Comment:: Previous history of recurrent DVTs with negative CTA of the chest shortly after admission however positive venous Doppler studies of the lower extremities this morning for returned right popliteal DVT. Note subtherapeutic INR on admission. Subcutaneous Lovenox initiated in the emergency room as above. INR scheduled for 12/14 with discontinuation of Lovenox once his INR is therapeutic. (3) DVT (deep venous thrombosis) SNOMED Code(s): 895294642 Code(s): I82.409 - ACUTE EMBOLISM AND THOMBOS UNSP DEEP VN UNSP LOWER EXTREMITY Status: Chronic Priority: Medium Current Visit: No Qualifiers: Affected thrombotic vein of extremity: popliteal Laterality: right Annotation/Comment:: See above (4) CHF (congestive heart failure) SNOMED Code(s): 91430817 Code(s): I50.9 - HEART FAILURE, UNSPECIFIED Status: Acute Priority: High Current Visit: Yes Onset Date: 12/14/19 Qualifiers: Heart failure type: unspecified Heart failure chronicity: acute Qualified Code(s): I50.9 - Heart failure, unspecified Annotation/Comment:: No evidence of acute fluid overload noted on exam/chest film. The patient is on an JAMES inhibitor. Echocardiogram on an outpatient basis. (5) Hyponatremia SNOMED Code(s): 58699847 Code(s): E87.1 - HYPO-OSMOLALITY AND HYPONATREMIA Status: Acute Priority: Low Current Visit: Yes Annotation/Comment:: Note CHF as above. Improved to 130 today. Known history of hyponatremia. Consider 3% sodium chloride infusion depending on his clinical course. (6) PVCs (premature ventricular contractions) SNOMED Code(s): 78931385 Code(s): I49.3 - VENTRICULAR PREMATURE DEPOLARIZATION Status: Acute Priority: Medium Current Visit: Yes Onset Date: 12/14/19 Annotation/Comment:: Newly diagnosed. Observe for now. (7) Alcohol abuse SNOMED Code(s): 77433027 Code(s): F10.10 - ALCOHOL ABUSE, UNCOMPLICATED Status: Chronic Priority: Medium Current Visit: Yes Annotation/Comment:: Patient denies, however alcohol abuse by medical records with elevated alcohol level at time of arrival. DT precautions were initiated with no apparent previous history of DTs, etc. Some hand tremor noted by nurses at times (8) Hyperlipidemia SNOMED Code(s): 05956981 Code(s): E78.5 - HYPERLIPIDEMIA, UNSPECIFIED Status: Chronic Priority: Medium Current Visit: Yes Qualifiers: Hyperlipidemia type: unspecified Qualified Code(s): E78.5 - Hyperlipidemia, unspecified Annotation/Comment:: Lipid panel on 12/13 was negative with excellent HDL. Glycosylated hemoglobin normal at 5.0% (9) Hypertension SNOMED Code(s): 89807842 Code(s): I10 - ESSENTIAL (PRIMARY) HYPERTENSION Status: Chronic Priority: Medium Current Visit: Yes Qualifiers: Hypertension type: essential hypertension Qualified Code(s): I10 - Essential (primary) hypertension Annotation/Comment:: Good control in the emergency room and during hospitalization. (10) Hypothyroidism (acquired) SNOMED Code(s): 531438893 Code(s): E03.9 - HYPOTHYROIDISM, UNSPECIFIED Status: Chronic Priority: Medium Current Visit: Yes Annotation/Comment:: Patient denies medication noncompliance however significantly elevated TSH today. Previous dose of Synthroid was given on admission, however this will be increased on 12/14 with recommended repeat TSH in 4 weeks. Further work-up depending on his clinical course. (11) Metastatic primary lung cancer SNOMED Code(s): 18373686, 826713766 Code(s): C34.90 - MALIGNANT NEOPLASM OF UNSP PART OF UNSP BRONCHUS OR LUNG Status: Chronic Priority: Medium Current Visit: Yes Qualifiers: Laterality: left Qualified Code(s): C34.92 - Malignant neoplasm of unspecified part of left bronchus or lung Annotation/Comment:: Patient has stopped experimental chemotherapy in March 2019 by his history. He still wishes to be a full code, however. Prognosis guarded secondary to reoccurrence as above and his previous weight loss from his lung cancer. (12) Osteoarthritis SNOMED Code(s): 781253205 Code(s): M19.90 - UNSPECIFIED OSTEOARTHRITIS, UNSPECIFIED SITE Status: Chronic Priority: Low Current Visit: Yes Qualifiers: Osteoarthritis location: multiple joints Osteoarthritis type: primary Qualified Code(s): M89.49 - Other hypertrophic osteoarthropathy, multiple sites Annotation/Comment:: Note additional history of rheumatoid arthritis. Stable by patient history although some nonspecific left shoulder pain today. Note history of disability secondary to chronic low back pain. (13) Peptic reflux disease SNOMED Code(s): 827036763 Code(s): K21.9 - GASTRO-ESOPHAGEAL REFLUX DISEASE WITHOUT ESOPHAGITIS Status: Chronic Priority: Medium Current Visit: Yes Annotation/Comment:: Nonsymptomatic at this time. High-dose IV Pepcid given as GI prophylaxis. (14) Tobacco abuse counseling SNOMED Code(s): 436853867, 778981055, 288613881 Code(s): Z71.6 - TOBACCO ABUSE COUNSELING Status: Chronic Priority: Medium Current Visit: Yes Annotation/Comment:: Tobacco cessation strongly encouraged especially in light of his lung cancer with tobacco cessation information to be provided at discharge. - Problem List Review Problem List Initiated/Reviewed/Updated: Yes - My Orders Last 24 Hours: My Active Orders 12/15/19 12:55 EKG Documentation Completion [RC] ASDIRECTED 12/16/19 08:00 Furosemide [Lasix] 40 mg IVPUSH DAILY - Assessment Assessment:: As above. Patient did have episode of AFib with RVR earlier today. EKG at 12:56 confirmed rhythm. Also noted to have lower BPs at that time and this was suspected to be secondary to lasix diuresis. Patient improved after fluid bolus. Converted on own to NSR. Lasix discontinued as no clinical changes suggestive of fluid overload noted on exam. - Plan Plan:: As above. Extensive precautions were given to the patient, who is in agreement with the treatment plan. The patient will require about 1-2 additional days of inpatient/acute care secondary to multiple health problems as above. Close follow-up of patient's INR, medical therapy, etc. as above.
[2019-12-16] MEDS ORDERED: Furosemide 40 MG/4 ML VIAL IVPUSH SCH (08:00)
[2019-12-16 08:48] LABS: CHLORIDE,CL 94 mmol/L (98-107); SODIUM,NA 131 mmol/L (136-145)
[2019-12-16] MEDS: Formoterol/Mometasone 100-5 MCG 8.8 GM Inhaler IH SCH ×2 (09:59→17:32)
[2019-12-16] MEDS: Potassium Chloride 20 MEQ Tab.ER PO SCH (10:00)
[2019-12-16] MEDS: Lisinopril 10 MG Tab PO SCH (10:00)
[2019-12-16] MEDS: Levothyroxine 150 MCG Tab PO SCH (10:03)
[2019-12-16] MEDS: Pantoprazole 40 MG Vial IVPUSH SCH ×2 (10:04→19:20)
[2019-12-16] MEDS: Sodium Chloride 0.9% 10 ML Syringe FLUSH PRN (10:04)
[2019-12-16] MEDS: Tiotropium Inhaler 18 MCG Inhalation Powder Cap Kit of 5 INH SCH (10:04)
[2019-12-16] MEDS: Enoxaparin 80 MG/0.8 ML Syringe SUBCUT SCH ×2 (10:04→19:20)
[2019-12-16] MEDS ORDERED: Warfarin 5 MG Tab PO ONE ×2 (13:13→19:00)
[2019-12-16] MEDS ORDERED: Warfarin 2 MG Tab PO ONE (13:14)
--- NOTE | 2019-12-16 13:25 | PCM.PN ---
- General Info Date of Service: 12/16/19 Admission Dx/Problem (Free Text): 1. Chest pain 2. DVT 3. COPD Subjective Update: Patient feeling good today. No acute complaints. Functional Status: Reports: Pain Controlled, Tolerating Diet, Ambulating, Urinating. Denies: New Symptoms Pain Score: 0 - Review of Systems General: Reports: No Symptoms HEENT: Reports: No Symptoms, Glasses Pulmonary: Reports: No Symptoms Cardiovascular: Reports: No Symptoms Gastrointestinal: Reports: No Symptoms Genitourinary: Reports: No Symptoms Musculoskeletal: Reports: Other (no acute changes from baseline) Skin: Denies: Rash Neurological: Reports: No Symptoms Psychiatric: Reports: No Symptoms - Patient Data Vitals - Most Recent: Last Vital Signs Temp 37.1 C 12/16/19 06:00 Pulse 61 12/16/19 06:00 Resp 13 12/16/19 06:00 BP 105/74 12/16/19 10:00 Pulse Ox 97 12/16/19 06:00 Weight - Most Recent: 73.028 kg I&O - Last 24 Hours: Intake & Output 12/15/19 12/16/19 12/16/19 22:59 06:59 14:59 Intake Total 1440 1137 840 Output Total 100 Balance 1340 1137 840 Lab Results Last 24 Hours: Laboratory Results - last 24 hr 12/15/19 12/16/19 12/16/19 Range/Units 08:05 07:25 07:25 WBC 7.6 (4.0-10.2) K/uL RBC 4.15 L (4.33-5.41) M/uL Hgb 13.9 (13.1-16.8) g/dL Hct 41.2 (39.0-49.0) % MCV 99.3 H (84.0-98.0) fL MCH 33.5 H (28.2-33.3) pg MCHC 33.7 (31.7-36.0) g/dL RDW 14.6 H (11.2-14.1) % Plt Count 189 (150-350) K/uL Neut % (Auto) 85.2 H (45.0-80.0) % Lymph % (Auto) 4.6 L (10.0-50.0) % [place] % (Auto) 7.7 (2.0-14.0) % Eos % (Auto) 2.2 (0.0-5.0) % Baso % (Auto) 0.3 (0.0-2.0) % Neut # (Auto) 6.51 (1.40-7.00) K/uL Lymph # (Auto) 0.35 L (0.50-3.50) K/uL [place] # (Auto) 0.59 (0.00-1.00) K/uL Eos # (Auto) 0.17 (0.00-0.50) K/uL Baso # (Auto) 0.02 (0.00-0.20) K/uL PT 11.8 (9.5-12.0) SEC INR 1.2 Sodium (136-145) mmol/L Potassium (3.5-5.1) mmol/L Chloride (98-107) mmol/L Carbon Dioxide (21.0-32.0) mmol/L BUN (7-18) mg/dL Creatinine (0.51-1.17) mg/dL Est Cr Clr Drug Dosing mL/min Estimated GFR (MDRD) mL/min Glucose (74-106) mg/dL Calcium (8.5-10.1) mg/dL Magnesium 2.2 (1.8-2.4) mg/dL 12/16/19 Range/Units 07:25 WBC (4.0-10.2) K/uL RBC (4.33-5.41) M/uL Hgb (13.1-16.8) g/dL Hct (39.0-49.0) % MCV (84.0-98.0) fL MCH (28.2-33.3) pg MCHC (31.7-36.0) g/dL RDW (11.2-14.1) % Plt Count (150-350) K/uL Neut % (Auto) (45.0-80.0) % Lymph % (Auto) (10.0-50.0) % [place] % (Auto) (2.0-14.0) % Eos % (Auto) (0.0-5.0) % Baso % (Auto) (0.0-2.0) % Neut # (Auto) (1.40-7.00) K/uL Lymph # (Auto) (0.50-3.50) K/uL [place] # (Auto) (0.00-1.00) K/uL Eos # (Auto) (0.00-0.50) K/uL Baso # (Auto) (0.00-0.20) K/uL PT (9.5-12.0) SEC INR Sodium 131 L (136-145) mmol/L Potassium 4.0 (3.5-5.1) mmol/L Chloride 94 L (98-107) mmol/L Carbon Dioxide 29.9 (21.0-32.0) mmol/L BUN 9 (7-18) mg/dL Creatinine 0.66 (0.51-1.17) mg/dL Est Cr Clr Drug Dosing 105.46 mL/min Estimated GFR (MDRD) > 60 mL/min Glucose 114 H (74-106) mg/dL Calcium 9.1 (8.5-10.1) mg/dL Magnesium (1.8-2.4) mg/dL Med Orders - Current: Current Medications Acetaminophen (Tylenol) 650 mg PO Q4H PRN PRN Reason: Pain Albuterol (Ventolin Hfa) 0 gm INH Q4H PRN PRN Reason: Dyspnea Enoxaparin Sodium (Lovenox) 80 mg SUBCUT Q12HR [facility] Levothyroxine Sodium (Levothyroxine) 150 mcg PO ACBREAKFAST [facility] Last Admin: 12/16/19 10:03 Dose: 150 mcg Documented by: Lisinopril (Prinivil) 10 mg PO DAILY [facility] Last Admin: 12/16/19 10:00 Dose: 10 mg Documented by: Lorazepam (Ativan) 1 mg PO Q4H PRN PRN Reason: Agitation Last Admin: 12/15/19 11:26 Dose: 1 mg Documented by: Mometasone Furoate/Formoterol Fumar (Dulera 100-5 Mcg) 2 puff IH BID [facility] Last Admin: 12/16/19 09:59 Dose: 2 inh Documented by: Pantoprazole Sodium (Protonix Iv) 40 mg IVPUSH Q12HR [facility] Last Admin: 12/16/19 10:04 Dose: 40 mg Documented by: Potassium Chloride (Klor-Con M20) 20 meq PO DAILY [facility] Last Admin: 12/16/19 10:00 Dose: 20 meq Documented by: Sodium Chloride (Saline Flush) 10 ml FLUSH ASDIRECTED PRN PRN Reason: Keep Vein Open Last Admin: 12/15/19 08:33 Dose: 10 ml Documented by: Sodium Chloride (Saline Flush) 10 ml FLUSH Q12HR PRN PRN Reason: Keep Vein Open Last Admin: 12/16/19 10:04 Dose: 10 ml Documented by: Temazepam (Restoril) 15 mg PO BEDTIME PRN PRN Reason: Insomnia Tiotropium [place] (Spiriva Handihaler) 18 mcg INH DAILY [facility] Last Admin: 12/16/19 10:04 Dose: 18 mcg Documented by: Warfarin Sodium (Coumadin) 6 mg PO SuTuThSa@1800 [facility] Last Admin: 12/14/19 18:08 Dose: 6 mg Documented by: Warfarin Sodium (Coumadin) 5 mg PO MOWEFR@1800 [facility] Discontinued Medications Enoxaparin Sodium (Lovenox) 80 mg SUBCUT Q24H [facility] Last Admin: 12/14/19 02:54 Dose: 80 mg Documented by: Enoxaparin Sodium (Lovenox) 80 mg SUBCUT Q24H [facility] Last Admin: 12/16/19 10:04 Dose: 80 mg Documented by: Famotidine (Pepcid) 40 mg IVPUSH ONETIME ONE Stop: 12/14/19 02:09 Last Admin: 12/14/19 02:13 Dose: 40 mg Documented by: Furosemide (Lasix) 40 mg IVPUSH Q8H [facility] Last Admin: 12/15/19 08:33 Dose: 40 mg Documented by: Furosemide (Lasix) 40 mg IVPUSH ONETIME ONE Stop: 12/14/19 05:31 Last Admin: 12/14/19 06:01 Dose: 40 mg Documented by: Furosemide (Lasix) 40 mg IVPUSH DAILY [facility] Sodium Chloride (Normal Saline) 250 mls @ 999 mls/hr IV ONETIME ONE Stop: 12/15/19 13:28 Last Admin: 12/15/19 16:03 Dose: Not Given Documented by: Sodium Chloride (Normal Saline) 500 mls @ 999 mls/hr IV ONETIME ONE Stop: 12/15/19 13:53 Last Admin: 12/15/19 13:44 Dose: Not Given Documented by: Sodium Chloride (Normal Saline) 1,000 mls @ 999 mls/hr IV .BOLUS ONE Stop: 12/15/19 14:42 Last Admin: 12/15/19 13:30 Dose: 999 mls/hr Documented by: Iopamidol (Isovue-370 (76%)) 100 ml IVPUSH ONETIME ONE Stop: 12/14/19 02:55 Last Admin: 12/14/19 03:37 Dose: 100 ml Documented by: Iopamidol (Isovue-370 (76%)) Confirm Administered Dose 100 ml .ROUTE .STK-MED ONE Stop: 12/14/19 02:57 Last Admin: 12/14/19 09:08 Dose: Not Given Documented by: Levothyroxine Sodium (Synthroid) 125 mcg PO ACBREAKFAST [facility] Last Admin: 12/14/19 09:09 Dose: 125 mcg Documented by: Lorazepam (Ativan) 0.5 mg IVPUSH ONETIME ONE Stop: 12/15/19 12:56 Last Admin: 12/15/19 13:16 Dose: 0.5 mg Documented by: Pantoprazole Sodium (Protonix Iv) 40 mg IVPUSH Q12H [facility] Last Admin: 12/14/19 18:08 Dose: 40 mg Documented by: Potassium Chloride (Klor-Con M20) 20 meq PO TID [facility] Last Admin: 12/15/19 19:12 Dose: 20 meq Documented by: Warfarin Sodium (Coumadin) 5 mg PO MoWeFr@1800 [facility] Last Admin: 12/15/19 19:11 Dose: 5 mg Documented by: Warfarin Sodium (Coumadin) 5 mg PO ONETIME ONE Stop: 12/14/19 05:12 Last Admin: 12/14/19 06:02 Dose: 5 mg Documented by: Warfarin Sodium 2 mg/ Warfarin (Sodium 5 mg) 7 mg PO ONETIME ONE Stop: 12/16/19 12:52 Warfarin Sodium (Coumadin) 5 mg PO ONETIME ONE Stop: 12/16/19 19:01 Warfarin Sodium (Coumadin) 10 mg PO ONETIME ONE Stop: 12/16/19 13:14 Warfarin Sodium (Coumadin) 2 mg PO ONETIME ONE Stop: 12/16/19 13:15 - Exam Quality Assessment: DVT Prophylaxis General: Alert, Oriented, Cooperative, No Acute Distress HEENT: Pupils Equal, Pupils Reactive, EOMI, Mucous Membr. Moist/[place] Neck: Supple Lungs: Clear to Auscultation, Normal Respiratory Effort Cardiovascular: Regular Rate, Regular Rhythm GI/Abdominal Exam: Normal Bowel Sounds, Soft, Non-Tender, No Distention (Male) Exam: Deferred Back Exam: No: Muscle Spasm Extremities: Non-Tender, Normal Capillary Refill Skin: Warm, Dry Neurological: No New Focal Deficit Psy/Mental Status: Alert, Normal Affect, Normal Mood Sepsis Event Note - Evaluation Sepsis Screening Result: No Definite Risk - Focused Exam Vital Signs: Vital Signs Temp Temp Pulse Resp BP BP Pulse Ox 12/16/19 10:00 105/74 12/16/19 06:00 37.1 C 61 13 124/72 97 12/16/19 03:28 36.6 C 85 18 172/90 H 95 - Problem List & Annotations (1) Chest pain SNOMED Code(s): 06593267 Code(s): R07.9 - CHEST PAIN, UNSPECIFIED Status: Acute Priority: High Current Visit: Yes Qualifiers: Chest pain type: precordial pain Qualified Code(s): R07.2 - Precordial pain Annotation/Comment:: Chest pain has resolved since admission. Only mild nonspecific arthritic left shoulder pain at this time. Chest pain protocol was initiated upon arrival of the patient into our facility. Note baby aspirin x4 were given by the awning maker prior to arrival in spite of his current Coumadin therapy. Brilinta was held, however subcu Lovenox was initiated at the VTE dose secondary to his d-dimer elevation. Initiated standard rule out [place] orders. Troponins have been normal. Probable Cardiolite stress test on an outpatient basis. (2) D-dimer, elevated SNOMED Code(s): 213881945 Code(s): R79.89 - OTHER SPECIFIED ABNORMAL FINDINGS OF BLOOD CHEMISTRY Status: Acute Priority: High Current Visit: Yes Onset Date: 12/14/19 Annotation/Comment:: Right popliteal DVT identified on US. Previous history of recurrent DVTs with negative CTA of the chest shortly after admission however positive venous Doppler studies of the lower extremities this morning for returned right popliteal DVT. Note subtherapeutic INR on admission. Subcutaneous Lovenox initiated in the emergency room as above. INR scheduled for 12/14 with discontinuation of Lovenox once his INR is therapeutic. (3) DVT (deep venous thrombosis) SNOMED Code(s): 447855803 Code(s): I82.409 - ACUTE EMBOLISM AND THOMBOS UNSP DEEP VN UNSP LOWER EXTREMITY Status: Chronic Priority: Medium Current Visit: No Qualifiers: Affected thrombotic vein of extremity: popliteal Laterality: right Annotation/Comment:: See above (4) CHF (congestive heart failure) SNOMED Code(s): 03460698 Code(s): I50.9 - HEART FAILURE, UNSPECIFIED Status: Acute Priority: High Current Visit: Yes Onset Date: 12/14/19 Qualifiers: Heart failure type: unspecified Heart failure chronicity: acute Qualified Code(s): I50.9 - Heart failure, unspecified Annotation/Comment:: No evidence of acute fluid overload noted on exam/chest film. The patient is on an JAMES inhibitor. Echocardiogram on an outpatient basis. (5) Hyponatremia SNOMED Code(s): 27232734 Code(s): E87.1 - HYPO-OSMOLALITY AND HYPONATREMIA Status: Acute Priority: Low Current Visit: Yes Annotation/Comment:: Note CHF as above. Improved to 130 today. Known history of hyponatremia. Consider 3% sodium chloride infusion depending on his clinical course. (6) PVCs (premature ventricular contractions) SNOMED Code(s): 04882258 Code(s): I49.3 - VENTRICULAR PREMATURE DEPOLARIZATION Status: Acute Priority: Medium Current Visit: Yes Onset Date: 12/14/19 Annotation/Comment:: Newly diagnosed. Observe for now. (7) Alcohol abuse SNOMED Code(s): 11774361 Code(s): F10.10 - ALCOHOL ABUSE, UNCOMPLICATED Status: Chronic Priority: Medium Current Visit: Yes Annotation/Comment:: Patient denies, however alcohol abuse by medical records with elevated alcohol level at time of arrival. DT precautions were initiated with no apparent previous history of DTs, etc. Some hand tremor noted by nurses at times (8) Hyperlipidemia SNOMED Code(s): 35213176 Code(s): E78.5 - HYPERLIPIDEMIA, UNSPECIFIED Status: Chronic Priority: Medium Current Visit: Yes Qualifiers: Hyperlipidemia type: unspecified Qualified Code(s): E78.5 - Hyperlipidemia, unspecified Annotation/Comment:: Lipid panel on 12/13 was negative with excellent HDL. Glycosylated hemoglobin normal at 5.0% (9) Hypertension SNOMED Code(s): 52107093 Code(s): I10 - ESSENTIAL (PRIMARY) HYPERTENSION Status: Chronic Priority: Medium Current Visit: Yes Qualifiers: Hypertension type: essential hypertension Qualified Code(s): I10 - Essential (primary) hypertension Annotation/Comment:: Good control in the emergency room and during hospitalization. (10) Hypothyroidism (acquired) SNOMED Code(s): 345735829 Code(s): E03.9 - HYPOTHYROIDISM, UNSPECIFIED Status: Chronic Priority: Medium Current Visit: Yes Annotation/Comment:: Patient denies medication noncompliance however significantly elevated TSH today. Previous dose of Synthroid was given on admission, however this will be increased on 12/14 with recommended repeat TSH in 4 weeks. Further work-up depending on his clinical course. (11) Metastatic primary lung cancer SNOMED Code(s): 28484662, 936277551 Code(s): C34.90 - MALIGNANT NEOPLASM OF UNSP PART OF UNSP BRONCHUS OR LUNG Status: Chronic Priority: Medium Current Visit: Yes Qualifiers: Laterality: left Qualified Code(s): C34.92 - Malignant neoplasm of unspecified part of left bronchus or lung Annotation/Comment:: Patient has stopped experimental chemotherapy in March 2019 by his history. He still wishes to be a full code, however. Prognosis guarded secondary to reoccurrence as above and his previous weight loss from his lung cancer. (12) Osteoarthritis SNOMED Code(s): 878038640 Code(s): M19.90 - UNSPECIFIED OSTEOARTHRITIS, UNSPECIFIED SITE Status: Chronic Priority: Low Current Visit: Yes Qualifiers: Osteoarthritis location: multiple joints Osteoarthritis type: primary Qualified Code(s): M89.49 - Other hypertrophic osteoarthropathy, multiple sites Annotation/Comment:: Note additional history of rheumatoid arthritis. Stable by patient history although some nonspecific left shoulder pain today. Note history of disability secondary to chronic low back pain. (13) Peptic reflux disease SNOMED Code(s): 128017669 Code(s): K21.9 - GASTRO-ESOPHAGEAL REFLUX DISEASE WITHOUT ESOPHAGITIS Status: Chronic Priority: Medium Current Visit: Yes Annotation/Comment:: Nonsymptomatic at this time. High-dose IV Pepcid given as GI prophylaxis. (14) Tobacco abuse counseling SNOMED Code(s): 484600299, 516253341, 946591774 Code(s): Z71.6 - TOBACCO ABUSE COUNSELING Status: Chronic Priority: Medium Current Visit: Yes Annotation/Comment:: Tobacco cessation strongly encouraged especially in light of his lung cancer with tobacco cessation information to be provided at discharge. - Problem List Review Problem List Initiated/Reviewed/Updated: Yes - My Orders Last 24 Hours: My Active Orders 12/15/19 12:55 EKG Documentation Completion [RC] ASDIRECTED 12/15/19 23:12 Vital Signs [RC] Q6HR 12/16/19 08:00 Potassium Chloride [Klor-Con M20] 20 meq PO DAILY 12/16/19 20:00 Enoxaparin [Lovenox] 80 mg SUBCUT Q12HR 12/17/19 05:11 INR,PT,PROTHROMBIN TIME [COAG] AM 12/17/19 05:15 BASIC METABOLIC PANEL,BMP [CHEM] AM CBC WITH AUTO DIFF [HEME] AM 12/18/19 18:00 Warfarin [Coumadin] 5 mg PO MOWEFR@1800 - Assessment Assessment:: As above. Patient did have episode of AFib with RVR yesterday. Also noted to have lower BPs at that time and this was suspected to be secondary to lasix diuresis. Patient improved after fluid bolus. Converted on own to NSR. Lasix discontinued as no clinical changes suggestive of fluid overload noted on exam. Currently bridging patient with Lovenox while trying to get INR into therapeutic range. INR actually dropped from 1.5 to 1.2 today. After discussing patient with pharmacy will give single bolus dose of 12mg Warfarin now with recheck of INR in AM. They also recommended increasing Lovenox dose to BID as that can be helpful with achieving therapeutic INR. - Plan Plan:: As above. Extensive precautions were given to the patient, who is in agreement with the treatment plan. The patient will require about 1 additional day of inpatient/acute care secondary to need to achieve therapeutic INR given new DVT. Close follow-up of patient's INR, medical therapy, etc. as above.
[2019-12-16] MEDS: LORazepam 1 MG Tab PO PRN (19:21)
[2019-12-17] MEDS: Tiotropium Inhaler 18 MCG Inhalation Powder Cap Kit of 5 INH SCH (08:14)
[2019-12-17] MEDS: Formoterol/Mometasone 100-5 MCG 8.8 GM Inhaler IH SCH (08:14)
[2019-12-17] MEDS: Pantoprazole 40 MG Vial IVPUSH SCH (08:15)
[2019-12-17] MEDS: Potassium Chloride 20 MEQ Tab.ER PO SCH (08:15)
[2019-12-17] MEDS: Lisinopril 10 MG Tab PO SCH (08:15)
[2019-12-17 08:16] VITALS: BP 132/74
[2019-12-17] MEDS: LORazepam 1 MG Tab PO PRN (08:16)
[2019-12-17] MEDS: Enoxaparin 80 MG/0.8 ML Syringe SUBCUT SCH (08:16)
[2019-12-17] MEDS: Levothyroxine 150 MCG Tab PO SCH (08:16)
[2019-12-17] MEDS: Sodium Chloride 0.9% 10 ML Syringe FLUSH PRN (08:17)
[2019-12-17 08:19] LABS: CHLORIDE,CL 95 mmol/L (98-107); SODIUM,NA 131 mmol/L (136-145)
[2019-12-17 10:14] VITALS: PULSE 74
[2019-12-17] MEDS ORDERED: Warfarin 5 MG Tab PO ONE (10:49)
[2019-12-17] MEDS ORDERED: Warfarin 2 MG Tab PO ONE (10:50)
--- NOTE | 2019-12-17 11:06 | PCM.DCSUM1 ---
Discharge Summary - Hospital Course Brief History: Patient evaluated in ER for chest pain complaint. Admitted for r/o NE protocol. ETOH history. Diagnosis: Stroke: No - Discharge Data Discharge Date: 12/17/19 Discharge Disposition: Home, Self-Care 01 Condition: Good - Referral to Home Health Primary Care Physician: PCP None - Discharge Diagnosis/Problem(s) (1) Chest pain SNOMED Code(s): 65179087 ICD Code: R07.9 - CHEST PAIN, UNSPECIFIED Status: Acute Priority: High Current Visit: Yes Problem Details: Chest pain has resolved since admission. Only mild nonspecific arthritic left shoulder pain at this time. Chest pain protocol was initiated upon arrival of the patient into our facility. Note baby aspirin x4 were given by the nickel plater prior to arrival in spite of his current Coumadin therapy. Brilinta was held, however subcu Lovenox was initiated at the VTE dose secondary to his d-dimer elevation. Initiated standard rule out NE orders. Troponins have been normal. Cardiolite stress test on an outpatient basis recommended. Qualifiers: Chest pain type: precordial pain Qualified Code(s): R07.2 - Precordial pain (2) D-dimer, elevated SNOMED Code(s): 247903494 ICD Code: R79.89 - OTHER SPECIFIED ABNORMAL FINDINGS OF BLOOD CHEMISTRY Status: Acute Priority: High Current Visit: Yes Onset Date: 12/14/19 Problem Details: Right popliteal DVT identified on US. Previous history of recurrent DVTs with negative CTA of the chest shortly after admission however positive venous Doppler studies of the lower extremities this morning for returned right popliteal DVT. Note subtherapeutic INR on admission. Subcutaneous Lovenox initiated in the emergency room as above. Plan was to bridge patient with Lovenox while INR became therapeutic. INR continues to be subtherapeutic today 12/16. (3) DVT (deep venous thrombosis) SNOMED Code(s): 914767313 ICD Code: I82.409 - ACUTE EMBOLISM AND THOMBOS UNSP DEEP VN UNSP LOWER EXTREMITY Status: Chronic Priority: Medium Current Visit: No Problem Details: See above Qualifiers: Affected thrombotic vein of extremity: popliteal Laterality: right (4) Alcohol abuse SNOMED Code(s): 24279473 ICD Code: F10.10 - ALCOHOL ABUSE, UNCOMPLICATED Status: Chronic Priority: Medium Current Visit: Yes Problem Details: Patient denies, however alcohol abuse by medical records with elevated alcohol level at time of arrival. DT precautions were initiated with mild DT symptoms observed by nursing staff. Improved with Ativan. (5) Metastatic primary lung cancer SNOMED Code(s): 23611517, 646451564 ICD Code: C34.90 - MALIGNANT NEOPLASM OF UNSP PART OF UNSP BRONCHUS OR LUNG Status: Chronic Priority: Medium Current Visit: Yes Problem Details: Patient has stopped experimental chemotherapy in March 2019 by his history. He still wishes to be a full code, however. Prognosis guarded secondary to reoccurrence as above and his previous weight loss from his lung cancer. Qualifiers: Laterality: left Qualified Code(s): C34.92 - Malignant neoplasm of unspecified part of left bronchus or lung (6) CHF (congestive heart failure) SNOMED Code(s): 56385295 ICD Code: I50.9 - HEART FAILURE, UNSPECIFIED Status: Acute Priority: High Current Visit: Yes Onset Date: 12/14/19 Problem Details: No evidence of acute fluid overload noted on exam/chest film. The patient is on an JAMES inhibitor. Echocardiogram on an outpatient basis recommended. Qualifiers: Heart failure type: unspecified Heart failure chronicity: acute Qualified Code(s): I50.9 - Heart failure, unspecified (7) Hyponatremia SNOMED Code(s): 82940866 ICD Code: E87.1 - HYPO-OSMOLALITY AND HYPONATREMIA Status: Acute Priority: Low Current Visit: Yes Problem Details: Note CHF as above. Improved to 131 today. Asymptomatic. Known history of hyponatremia. (8) PVCs (premature ventricular contractions) SNOMED Code(s): 80522496 ICD Code: I49.3 - VENTRICULAR PREMATURE DEPOLARIZATION Status: Acute Priority: Medium Current Visit: Yes Onset Date: 12/14/19 Problem Details: Newly diagnosed. Follow up with PCP (9) Hyperlipidemia SNOMED Code(s): 20182722 ICD Code: E78.5 - HYPERLIPIDEMIA, UNSPECIFIED Status: Chronic Priority: Medium Current Visit: Yes Problem Details: Lipid panel on 12/13 was negative with excellent HDL. Glycosylated hemoglobin normal at 5.0% Qualifiers: Hyperlipidemia type: unspecified Qualified Code(s): E78.5 - Hyperlipidemia, unspecified (10) Hypertension SNOMED Code(s): 61079340 ICD Code: I10 - ESSENTIAL (PRIMARY) HYPERTENSION Status: Chronic Priority: Medium Current Visit: Yes Problem Details: Intermittent elevation observed. To follow up with PCP. Qualifiers: Hypertension type: essential hypertension Qualified Code(s): I10 - Essential (primary) hypertension (11) Hypothyroidism (acquired) SNOMED Code(s): 993134428 ICD Code: E03.9 - HYPOTHYROIDISM, UNSPECIFIED Status: Chronic Priority: Medium Current Visit: Yes Problem Details: Patient denies medication noncompliance however significantly elevated TSH today. Previous dose of Synthroid was given on admission, however this will be increased on 12/14 with recommended repeat TSH in 4 weeks. Further work-up depending on his clinical course. (12) Osteoarthritis SNOMED Code(s): 882768609 ICD Code: M19.90 - UNSPECIFIED OSTEOARTHRITIS, UNSPECIFIED SITE Status: Chronic Priority: Low Current Visit: Yes Problem Details: Note additional history of rheumatoid arthritis. Stable by patient history although some nonspecific left shoulder pain today. Note history of disability secondary to chronic low back pain. Qualifiers: Osteoarthritis location: multiple joints Osteoarthritis type: primary Qualified Code(s): M89.49 - Other hypertrophic osteoarthropathy, multiple sites (13) Peptic reflux disease SNOMED Code(s): 124573665 ICD Code: K21.9 - GASTRO-ESOPHAGEAL REFLUX DISEASE WITHOUT ESOPHAGITIS Status: Chronic Priority: Medium Current Visit: Yes Problem Details: Nonsymptomatic at this time. High-dose IV Pepcid given as GI prophylaxis. (14) Tobacco abuse counseling SNOMED Code(s): 809791224, 990724669, 015398254 ICD Code: Z71.6 - TOBACCO ABUSE COUNSELING Status: Chronic Priority: Medium Current Visit: Yes Problem Details: Tobacco cessation strongly encouraged especially in light of his lung cancer. - Patient Summary/Data Hospital Course: Patient's chest pain complaint resolved and did not return after admission. Noted to have some changes consistent with DTs first several days of stay. Intermittent episodes AFib noted which resolved on own. US study identified right lower leg DVT. Chest CT negative for acute PE. Was noted to have bilateral pleural effusions. Note history of metastatic lung cancer which is currently not being treated. Hyponatremia improved. Lovenox initiated to bridge patient while INR subtherapeutic. Patient is on Warfarin at home due to history of lower extremity DVTs but there is concern for chronic ETOH abuse and poor compliance with medication. Similarly TSH was quite elevated and there is doubt he is taking his thyroid medication. Patient reports feeling well overall the past few days and wishes to go home. His INR however is still subthera peutic. He admits that he cannot give himself SQ Lovenox injections at home but wants to be discharged. It would be possible to consider letting patient go home and continue as outpatient for ongoing SQ Lovenox and INR monitoring/Warfarin dosing adjustments as needed. However there is concern around his ETOH use and compliance with plan/follow up. Patient is free to make own decisions in this matter and will be discharged today. He can follow up here tomorrow as outpatient but says he will try to see if [facility] will see him first. Extensive precautions reviewed with patient prior to discharge and he says he is agreeable with plan. - Patient Instructions Diet: Usual Diet as Tolerated Activity: As Tolerated Showering/Bathing: May Shower Other/Special Instructions: First, it is very important for you to continue to get your INR checked daily so that we know when your Warfarin is actually working well. Until then, you will need daily Lovenox injections. You can get them done here as an outpatient since you are unable to perform them yourself. You can see if the [facility] is comfortable with this tomorrow (Wednesday), or you can arrange to have this done here in [place]. It will then be important to made certain that your INR STAYS in a good range. You will need to be consistent with taking the medication and continued follow up for lab work. Similarly your thyroid levels are messed up and will need monitoring. Your blood pressure was a bit high at times while you were here. Please continue to have that followed by your primary provider too. Recommend avoiding all alcohol use as it leads to making poor choices. Discuss having an updated cardiac stress test and echo study with your provider for better cardiac evaluation. Follow up otherwise as needed if you have sudden problems/concerns. You will be told to hold your usual Warfarin daily dose while this is getting sorted out! - Discharge Plan *PRESCRIPTION DRUG MONITORING PROGRAM REVIEWED*: Not Applicable *COPY OF PRESCRIPTION DRUG MONITORING REPORT IN PATIENT ARPAN: Not Applicable Prescriptions/Med Rec: Levothyroxine 150 mcg PO ACBREAKFAST #30 tablet Home Medications: Home Meds Albuterol [Proventil HFA] 2 puff INH Q4H PRN #1 inhaler 09/20/14 [Rx] Fluticasone/Vilanterol [Breo Ellipta 100-25 MCG Inhalation Kit] 1 puff INH DAILY 12/14/19 [History] Non-Formulary Medication [NF Drug] 1 puff INH DAILY 12/14/19 [History] lisinopriL [Lisinopril] 1 tab PO DAILY 12/14/19 [History] Levothyroxine 150 mcg PO ACBREAKFAST #30 tablet 12/17/19 [Rx] Forms: ED Department Discharge Referrals: PCP,None [Primary Care Provider] - - Discharge Summary/Plan Comment DC Time >30 min.: Yes (waiting for ride) - General Info Date of Service: 12/17/19 Admission Dx/Problem (Free Text: 1. Chest pain 2. DVT 3. COPD Subjective Update: Patient feeling good today. No acute complaints. Functional Status: Reports: Pain Controlled Numeric/FACES Score: 0 - Review of Systems General: Reports: No Symptoms HEENT: Reports: No Symptoms Pulmonary: Reports: Cough (has baseline chronic cough/unchanged). Denies: Shortness of Breath, Pleuritic Chest Pain, Sputum Cardiovascular: Reports: No Symptoms. Denies: Chest Pain Gastrointestinal: Reports: No Symptoms Genitourinary: Reports: No Symptoms Musculoskeletal: Reports: Other (No acute changes from baseline) Skin: Reports: No Symptoms Neurological: Reports: No Symptoms Psychiatric: Reports: No Symptoms - Patient Data Vitals - Most Recent: Last Vital Signs Temp 36.6 C 12/17/19 07:10 Pulse 74 12/17/19 07:10 Resp 18 12/17/19 07:10 BP 132/74 12/17/19 08:15 Pulse Ox 93 L 12/17/19 07:10 Weight - Most Recent: 72.121 kg I&O - Last 24 hours: Intake & Output 12/16/19 12/17/19 12/17/19 22:59 06:59 14:59 Intake Total 680 540 Balance 680 540 Lab Results - Last 24 hrs: Laboratory Results - last 24 hr 12/17/19 12/17/19 12/17/19 Range/Units 07:50 07:50 07:50 WBC 4.9 (4.0-10.2) K/uL RBC 4.04 L (4.33-5.41) M/uL Hgb 13.3 (13.1-16.8) g/dL Hct 39.0 (39.0-49.0) % MCV 96.5 (84.0-98.0) fL MCH 32.9 (28.2-33.3) pg MCHC 34.1 (31.7-36.0) g/dL RDW 14.0 (11.2-14.1) % Plt Count 165 (150-350) K/uL Neut % (Auto) 80.0 (45.0-80.0) % Lymph % (Auto) 6.1 L (10.0-50.0) % Maury % (Auto) 9.6 (2.0-14.0) % Eos % (Auto) 3.9 (0.0-5.0) % Baso % (Auto) 0.4 (0.0-2.0) % Neut # (Auto) 3.93 (1.40-7.00) K/uL Lymph # (Auto) 0.30 L (0.50-3.50) K/uL Maury # (Auto) 0.47 (0.00-1.00) K/uL Eos # (Auto) 0.19 (0.00-0.50) K/uL Baso # (Auto) 0.02 (0.00-0.20) K/uL PT 14.6 H (9.5-12.0) SEC INR 1.5 Sodium 131 L (136-145) mmol/L Potassium 4.5 (3.5-5.1) mmol/L Chloride 95 L (98-107) mmol/L Carbon Dioxide 30.3 (21.0-32.0) mmol/L BUN 7 (7-18) mg/dL Creatinine 0.64 (0.51-1.17) mg/dL Est Cr Clr Drug Dosing 108.76 mL/min Estimated GFR (MDRD) > 60 mL/min Glucose 99 (74-106) mg/dL Calcium 9.0 (8.5-10.1) mg/dL Med Orders - Current: Current Medications Acetaminophen (Tylenol) 650 mg PO Q4H PRN PRN Reason: Pain Albuterol (Ventolin Hfa) 0 gm INH Q4H PRN PRN Reason: Dyspnea Enoxaparin Sodium (Lovenox) 80 mg SUBCUT Q12HR [facility] Last Admin: 12/17/19 08:16 Dose: 80 mg Documented by: Levothyroxine Sodium (Levothyroxine) 150 mcg PO ACBREAKFAST [facility] Last Admin: 12/17/19 08:16 Dose: 150 mcg Documented by: Lisinopril (Prinivil) 10 mg PO DAILY [facility] Last Admin: 12/17/19 08:15 Dose: 10 mg Documented by: Lorazepam (Ativan) 1 mg PO Q4H PRN PRN Reason: Agitation Last Admin: 12/17/19 08:16 Dose: 1 mg Documented by: Mometasone Furoate/Formoterol Fumar (Dulera 100-5 Mcg) 2 puff IH BID [facility] Last Admin: 12/17/19 08:14 Dose: 2 inh Documented by: Pantoprazole Sodium (Protonix Iv) 40 mg IVPUSH Q12HR [facility] Last Admin: 12/17/19 08:15 Dose: 40 mg Documented by: Potassium Chloride (Klor-Con M20) 20 meq PO DAILY [facility] Last Admin: 12/17/19 08:15 Dose: 20 meq Documented by: Sodium Chloride (Saline Flush) 10 ml FLUSH ASDIRECTED PRN PRN Reason: Keep Vein Open Last Admin: 12/15/19 08:33 Dose: 10 ml Documented by: Sodium Chloride (Saline Flush) 10 ml FLUSH Q12HR PRN PRN Reason: Keep Vein Open Last Admin: 12/17/19 08:17 Dose: 10 ml Documented by: Temazepam (Restoril) 15 mg PO BEDTIME PRN PRN Reason: Insomnia Tiotropium [place] (Spiriva Handihaler) 18 mcg INH DAILY [facility] Last Admin: 12/17/19 08:14 Dose: 18 mcg Documented by: Warfarin Sodium (Coumadin) 6 mg PO SuTuThSa@1800 [facility] Last Admin: 12/14/19 18:08 Dose: 6 mg Documented by: Warfarin Sodium (Coumadin) 5 mg PO MOWEFR@1800 [facility] Warfarin Sodium (Coumadin) 10 mg PO ONETIME ONE Stop: 12/17/19 10:50 Warfarin Sodium (Coumadin) 2 mg PO ONETIME ONE Stop: 12/17/19 10:51 Discontinued Medications Enoxaparin Sodium (Lovenox) 80 mg SUBCUT Q24H [facility] Last Admin: 12/14/19 02:54 Dose: 80 mg Documented by: Enoxaparin Sodium (Lovenox) 80 mg SUBCUT Q24H [facility] Last Admin: 12/16/19 10:04 Dose: 80 mg Documented by: Famotidine (Pepcid) 40 mg IVPUSH ONETIME ONE Stop: 12/14/19 02:09 Last Admin: 12/14/19 02:13 Dose: 40 mg Documented by: Furosemide (Lasix) 40 mg IVPUSH Q8H [facility] Last Admin: 12/15/19 08:33 Dose: 40 mg Documented by: Furosemide (Lasix) 40 mg IVPUSH ONETIME ONE Stop: 12/14/19 05:31 Last Admin: 12/14/19 06:01 Dose: 40 mg Documented by: Furosemide (Lasix) 40 mg IVPUSH DAILY [facility] Sodium Chloride (Normal Saline) 250 mls @ 999 mls/hr IV ONETIME ONE Stop: 12/15/19 13:28 Last Admin: 12/15/19 16:03 Dose: Not Given Documented by: Sodium Chloride (Normal Saline) 500 mls @ 999 mls/hr IV ONETIME ONE Stop: 12/15/19 13:53 Last Admin: 12/15/19 13:44 Dose: Not Given Documented by: Sodium Chloride (Normal Saline) 1,000 mls @ 999 mls/hr IV .BOLUS ONE Stop: 12/15/19 14:42 Last Admin: 12/15/19 13:30 Dose: 999 mls/hr Documented by: Iopamidol (Isovue-370 (76%)) 100 ml IVPUSH ONETIME ONE Stop: 12/14/19 02:55 Last Admin: 12/14/19 03:37 Dose: 100 ml Documented by: Iopamidol (Isovue-370 (76%)) Confirm Administered Dose 100 ml .ROUTE .STK-MED ONE Stop: 12/14/19 02:57 Last Admin: 12/14/19 09:08 Dose: Not Given Documented by: Levothyroxine Sodium (Synthroid) 125 mcg PO ACBREAKFAST [facility] Last Admin: 12/14/19 09:09 Dose: 125 mcg Documented by: Lorazepam (Ativan) 0.5 mg IVPUSH ONETIME ONE Stop: 12/15/19 12:56 Last Admin: 12/15/19 13:16 Dose: 0.5 mg Documented by: Pantoprazole Sodium (Protonix Iv) 40 mg IVPUSH Q12H [facility] Last Admin: 12/14/19 18:08 Dose: 40 mg Documented by: Potassium Chloride (Klor-Con M20) 20 meq PO TID [facility] Last Admin: 12/15/19 19:12 Dose: 20 meq Documented by: Warfarin Sodium (Coumadin) 5 mg PO MoWeFr@1800 [facility] Last Admin: 12/15/19 19:11 Dose: 5 mg Documented by: Warfarin Sodium (Coumadin) 5 mg PO ONETIME ONE Stop: 12/14/19 05:12 Last Admin: 12/14/19 06:02 Dose: 5 mg Documented by: Warfarin Sodium 2 mg/ Warfarin (Sodium 5 mg) 7 mg PO ONETIME ONE Stop: 12/16/19 12:52 Last Admin: 12/16/19 13:47 Dose: Not Given Documented by: Warfarin Sodium (Coumadin) 5 mg PO ONETIME ONE Stop: 12/16/19 19:01 Warfarin Sodium (Coumadin) 10 mg PO ONETIME ONE Stop: 12/16/19 13:14 Last Admin: 12/16/19 13:58 Dose: 10 mg Documented by: Warfarin Sodium (Coumadin) 2 mg PO ONETIME ONE Stop: 12/16/19 13:15 Last Admin: 12/16/19 13:58 Dose: 2 mg Documented by: - Exam General: Reports: Alert, Oriented HEENT: Reports: Pupils Equal, Pupils Reactive, EOMI, Mucous Membr. Moist/[place] Neck: Reports: Supple Lungs: Reports: Decreased Breath Sounds (throughout), Rhonchi (very faint/at bases). Denies: Wheezing (Male) Exam: Deferred Rectal (Males) Exam: Deferred Back Exam: Denies: CVA Tenderness (L), CVA Tenderness (R), Muscle Spasm Extremities: Non-Tender, Normal Capillary Refill Skin: Reports: Warm, Dry Neurological: Reports: No New Focal Deficit Psy/Mental Status: Reports: Alert, Normal Affect, Normal Mood
[2019-12-17] MEDS ORDERED: Thiamine 100 MG Tab PO ONE (11:40)
[2019-12-18] MEDS ORDERED: Warfarin 5 MG Tab PO SCH (18:00)
== END 2019-12-17 13:10 | disposition home or self-care (01) | DRG 313 ==
LOC: LL.ED 01:47 → UNDOADMIN 03:33 → LL.MS 03:33
PROVIDERS: ADMIT Family Medicine; ATTEND Family Medicine
DX: R07.9 Chest pain, unspecified (principal); R07.2 Precordial pain; R79.89 Other specified abnormal findings of blood chemistry; C34.92 Malignant neoplasm of unspecified part of left bronchus or lung; E87.1 Hypo-osmolality and hyponatremia; I31.3 Pericardial effusion (noninflammatory); I82.401 Acute embolism and thrombosis of unspecified deep veins of right lower extremity; F10.10 Alcohol abuse, uncomplicated; M19.90 Unspecified osteoarthritis, unspecified site; I50.9 Heart failure, unspecified; I49.3 Ventricular premature depolarization; E78.5 Hyperlipidemia, unspecified; T50.2X5A Adverse effect of carbonic-anhydrase inhibitors, benzothiadiazides and other diuretics, initial encounter; I11.0 Hypertensive heart disease with heart failure; Z86.718 Personal history of other venous thrombosis and embolism; E78.00 Pure hypercholesterolemia, unspecified; E03.9 Hypothyroidism, unspecified; Z87.01 Personal history of pneumonia (recurrent); Z86.010 Personal history of colon polyps; N40.0 Benign prostatic hyperplasia without lower urinary tract symptoms; G89.29 Other chronic pain; M54.9 Dorsalgia, unspecified; M54.2 Cervicalgia; M06.9 Rheumatoid arthritis, unspecified; E66.9 Obesity, unspecified; D84.9 Immunodeficiency, unspecified; C79.51 Secondary malignant neoplasm of bone; C15.9 Malignant neoplasm of esophagus, unspecified; Z92.21 Personal history of antineoplastic chemotherapy; Z92.3 Personal history of irradiation; Z98.890 Other specified postprocedural states; Z98.42 Cataract extraction status, left eye; Z98.41 Cataract extraction status, right eye; Z98.818 Other dental procedure status; F17.210 Nicotine dependence, cigarettes, uncomplicated; J44.9 Chronic obstructive pulmonary disease, unspecified; Z99.81 Dependence on supplemental oxygen; H54.7 Unspecified visual loss; H91.90 Unspecified hearing loss, unspecified ear; H91.13 Presbycusis, bilateral; M89.49 Other hypertrophic osteoarthropathy, multiple sites; I48.91 Unspecified atrial fibrillation; K21.9 Gastro-esophageal reflux disease without esophagitis; Z71.6 Tobacco abuse counseling; Z79.01 Long term (current) use of anticoagulants; Z91.19 Patient's noncompliance with other medical treatment and regimen; Z79.899 Other long term (current) drug therapy; Z79.890 Hormone replacement therapy
CPT/HCPCS: 36415; 71045; 71275; 80048; 80053; 80061; 80307; 82272; 82550; 82553; 83036; 83605; 83735; 83880; 84443; 84484; 84550; 85025; 85379; 85610; 85730; 87338; 93005; 93970; 94640; 96372; 96374; 99285-25; A9270-GY; C9113; J1650; J1940; J2060; J3490; J7030; Q9967

== ENCOUNTER 2020-08-21 19:18 | Observation (INO) | payer MEDICARE, OTHER ==
--- NOTE | 2020-08-21 19:55 | EDM.PDOC ---
ED HPI GENERAL MEDICAL PROBLEM - General Chief Complaint: General Stated Complaint: hit head Time Seen by Provider: 08/21/20 19:20 Source of Information: Reports: Patient, Family - History of Present Illness INITIAL COMMENTS - FREE TEXT/NARRATIVE: Andry is a 70 y/o male who is brought to the ER via POV by a family member after he fell thjis evening about 5:15 pm. He had apparently been out in the [place] and then fell down and hit his head. He did have +LOC, but somewhere between the fall and coming to he crawled back into his apt and was able to call his brother for help. He denied that he felt ill or dizzy prior to the fall. He has been out in the heat today drinking coffee and beer, admits to very little water consumption today. Family member reports that he has been more unsteady lately. He did sustain a cut to the stop of head, but no other injuries. Bilateral Shoulder Pain Score (Numeric/FACES): 3 - Related Data Allergies Allergy/AdvReac Type Severity Reaction Status Date / Time No Known Allergies Allergy Verified 08/21/20 19:28 Home Meds: Home Meds Albuterol [Proventil HFA] 2 puff INH Q4H PRN #1 inhaler 09/20/14 [Rx] lisinopriL [Lisinopril] 1 tab PO DAILY 12/14/19 [History] Levothyroxine 150 mcg PO ACBREAKFAST #30 tablet 12/17/19 [Rx] Warfarin [Coumadin] 5 mg PO DAILY 08/21/20 [History] Past Medical History HEENT History: Reports: Cataract, Hard of Hearing, Impaired Vision, Other (See Below). Denies: Allergic Rhinitis, Glaucoma, Macular Degeneration, Otitis Media, Retinal Detachment Other HEENT History: Bilateral presbycusis with no current hearing aid therapy. Patient does wear reading glasses. Cardiovascular History: Reports: Blood Clots/VTE/DVT, High Cholesterol, Hypertension. Denies: Afib, Arrhythmia, CAD, Cardiomyopathy, Heart Failure, He art Murmur, SD, PVD, Syncope Other Cardiovascular History: History of recurrent DVTs of the legs in the initially in the left leg and then in the right leg with current Coumadin therapy. Respiratory History: Reports: Bronchitis, Recurrent, COPD, Intubation, Previous, Pneumonia, Recurrent, Pulmonary Fibrosis, Other (See Below). Denies: Intuba tion, Difficult, PE, Pneumothorax, Sleep Apnea, TB Other Respiratory History: O2 dependent COPD usually nocturnal at 3.5 L/min. Metastatic lung cancer as below. Gastrointestinal History: Reports: Colon Polyp, GERD, Other (See Below). Denies: Celiac Disease, Cholelithiasis, Chronic Constipation, Chronic Diarrhea, Gastritis, GI Bleed, Hepatitis, Inflammatory Bowel Disease, Irritable Bowel Syndrome, Jaundice, Pancreatitis, PUD Other Gastrointestinal History: Esophageal cancer as below. Genitourinary History: Reports: BPH. Denies: Acute Renal Failure, Chronic Renal Insuffiency, Renal Calculus, STD, Urinary Incontinence, UTI, Recurrent Musculoskeletal History: Reports: Arthritis, Back Pain, Chronic, Fracture, Neck Pain, Chronic, Osteoarthritis, RA, Other (See Below). Denies: Gout, SLE Other Musculoskeletal History: Mid shaft right tibial and fibular fracture at about age 10 not requiring surgery. Left rotator cuff tear on 04/19/2017. Neurological History: Reports: Other (See Below). Denies: Cerebral Aneurysms, Concussion, CVA, Headaches, Chronic, Head Trauma, Migraines, MS, Neuropathy, Diabetic, Neuropathy, Peripheral, Parkinson's, Seizure, TIA Other Neuro History: Right arm ulnar neuropathy. Psychiatric History: Reports: Addiction, Other (See Below). Denies: Abuse, Victim of, ADD, ADHD, Anxiety, Depression, Psych Hospitalization(s), PTSD, Suicide Attempt, Suicidal Ideation Other Psychiatric History: Alcohol and tobacco use as below. Endocrine/Metabolic History: Reports: Hypothyroidism, Obesity/BMI 30+, Other (See Below). Denies: Diabetes, Type I, Diabetes, Type II, Diabetes Mellitus, Type 3c, IDDM Other Endocrine/Metabolic History: Previous obesity however not currently secondary to lung cancer, etc. Hematologic History: Reports: Other (See Below). Denies: Anemia, B12 Deficiency, Blood Transfusion(s), Iron Deficiency Other Hematologic History: Polycythemia secondary to tobacco abuse. Immunologic History: Reports: Immunosuppression, Other (See Below). Denies: AIDS, HIV, SLE Other Immunologic History: Current lung with metastases. Oncologic (Cancer) History: Reports: Esophageal, Lung, Metastatic, Other (See Below). 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 Initial therapy completed on 06/06/2018 with patient discontinuing therapy on his own for recurrence in March 2019. New left upper lobe pulmonary nodules by CT scan on 09/26/2019. 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 Dermatologic History: Reports: None. Denies: Eczema, Psoriasis - Infectious Disease History Infectious Disease History: Reports: Chicken Pox, Rheumatic Fever. Denies: C-Difficile, Measles, Meningitis, Mononucleosis, MRSA, Mumps, Pertussis (Whooping Cough), Rubella, Scarlet Fever, Shingles, TB, VRE - Past Surgical History Head Surgeries/Procedures: Reports: None HEENT Surgical History: Reports: Cataract Surgery, Eye Surgery, Oral Surgery, Other (See Below). Denies: Adenoidectomy, Laser Surgery, LASIK, Myringotomy w Tube(s), Naso-Sinus Surgery, Tonsillectomy Other HEENT Surgeries/Procedures: Laryngoscopies on 06/21/2018 and 01/18/2018. Bilateral cataract surgery at age 66. Complete teeth extraction with complete dentures uppers and lowers. Cardiovascular Surgical History: Reports: Other (See Below). Denies: Varicose Other Cardiovascular Surgeries/Procedures: Right-sided Port-A-Cath placement on 05/09/2018. Respiratory Surgical History: Reports: Lung Biopsies, Other (See Below). Denies: Thoracentesis Other Respiratory Surgeries/Procedures: Left-sided lung biopsies secondary to lung cancer as above. Bronchoscopy is on 03/23/2018 and 10/12/2017. GI Surgical History: Reports: Appendectomy, Colonoscopy, EGD, Hernia, Abdominal, Polypectomy, Other (See Below). Denies: Cholecystectomy, Hernia, Inguinal, Hernia Repair/Other Other GI Surgeries/Procedures: Laparoscopic appendectomy and concomitant umbilical hernia repair in about 2009. EGD and colonoscopy on 09/20/2017. EGD on 02/19/2017. Male Surgical History: Reports: Circumcision, Other (See Below). Denies: TURP-Transurethral Resection of Prostate, Vasectomy Other Male Surgeries/Procedures: Circumcision as an infant. Endocrine Surgical History: Reports: None. Denies: Thyroid Biopsy Neurological Surgical History: Reports: Lumbar Spine, Spinal Fusion, Other (See Below). Denies: C-Spine, Discectomy, Laminectomy, Sacral Spine, Thoracic Spine Other Neurological Surgeries/Procedures: Spinal fusions in 1997, 2002, and 2003. Musculoskeletal Surgical History: Denies: Arthroscopic Procedure, Carpal Tunnel, Ganglion Cyst, Joint Replacement, ORIF, Shoulder Surgery Oncologic Surgical History: Reports: None Dermatological Surgical History: Reports: None - Past Imaging History Past Imaging History: Reports: CAT Scan (Multiple CTs of the chest with IV contrast with last evaluations on 09/26/2019 and 07/04/2019. Soft tissue of the neck CT on 09/03/2017.), MRI (MRI of the left shoulder on 04/19/2017.), PET (PET/CT of the skull and brain on 08/31/2018 and 03/02/2018 with similar evaluation however to the thigh on 10/04/2017.), PFT (10/07/2017), Swallow Study (09/03/2017), Ultrasound (Endobronchial ultrasound on 03/23/2018 and 10/12/2017.), Other (See Below) (EMG and nerve conduction studies on 07/14/2018.) Social & Family History - Family History HEENT: Reports: Macular Degeneration, Retinal Detachment, Other (See Below). Denies: Glaucoma Other HEENT Family History: Sister with macular degeneration. Brother with retinal detachment. Cardiac: Reports: Aneurysm, Other (See Below). Denies: Afib, Arrhythmia, Blood Clots/VTE/DVT, CAD, Heart Failure, High Cholesterol, Hypertension, SD, PVD/COD, Syncope Other Cardiac Family History: Mother with AAA. Respiratory: Reports: None. Denies: Asthma, COPD, PE, Pneumothorax, Sleep Apnea GI: Reports: None. Denies: Celiac Disease, Cholelithiasis, Colon Polyps, GERD, GI bleed, Inflammatory Bowel Disease, Irritable Bowel Syndrome, PUD : Reports: None. Denies: Renal Calculus, Renal Disease/Insufficiency OBGYN: Reports: None. Denies: Endometriosis, Recurrent Spontaneous Musculoskeletal: Reports: None. Denies: Arthritis, Gout, Osteoarthritis, RA, SLE Neurological: Reports: None. Denies: Alzheimers Disease, CVA, Dementia, Migraines, MS, Parkinson's, Seizure, TIA Psychiatric: Reports: None. Denies: Abuse, Victim of, ADD, ADHD, Anxiety, Depression, Psych Hospitalization(s), PTSD, Suicide Attempt Endocrine/Metabolic: Reports: None. Denies: Diabetes, Type I, Diabetes, type II, Diabetes Mellitus, Type 3c, Hypothyroidism, IDDM Hematologic: Reports: None. Denies: SLE Immunologic: Reports: None. Denies: AIDS, HIV, SLE Dermatologic: Reports: None. Denies: Eczema, Psoriasis Oncologic: Reports: None. Denies: Colon, Esophageal, Hodgkin's Lymphoma, Leukemia, Lymphoma, Non-Hodgkin's Lymphoma, Prostate, Skin - Caffeine Use Caffeine Use: Reports: Coffee (10 cups/day), Soda (Occasional). Denies: Energy Drinks, Tea - Alcohol Use Alcohol Use History: Yes Alcohol Use Frequency: Daily Alcohol Use Comment: Answers "Too Many" when asked about his daily alcohol consumption. 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.) ED ROS GENERAL - Review of Systems Review Of Systems: See Below Constitutional: Reports: Fatigue HEENT: Reports: No Symptoms Respiratory: Reports: No Symptoms Cardiovascular: Reports: No Symptoms Endocrine: Reports: No Symptoms GI/Abdominal: Reports: No Symptoms : Reports: No Symptoms Musculoskeletal: Reports: No Symptoms Skin: Reports: No Symptoms Neurological: Reports: Headache, Difficulty Walking Psychiatric: Reports: No Symptoms Hematologic/Lymphatic: Reports: No Symptoms Immunologic: Reports: No Symptoms ED EXAM, GENERAL - Physical Exam Exam: See Below General Appearance: Alert, WD/WN (Elderly male) Ears: Normal External Exam, Normal Canal, Hearing Grossly Normal Nose: Normal Inspection, Normal Mucosa Throat/Mouth: Normal Inspection, Normal Voice Head: Normocephalic, Other (Note crescent shaped laceration with irregular edges to top of head, ) Neck: Supple, Non-Tender Respiratory/Chest: No Respiratory Distress, Lungs Clear, Chest Non-Tender Cardiovascular: Normal Peripheral Pulses, Regular Rate, Rhythm, No Murmur GI/Abdominal: Normal Bowel Sounds, Soft (Male) Exam: Deferred Rectal (Males) Exam: Deferred Back Exam: Normal Inspection Extremities: Normal Inspection, Normal Range of Motion, No Pedal Edema, Normal Capillary Refill Neurological: Alert, Oriented, CN II-XII Intact Psychiatric: Normal Affect Skin Exam: Warm, Dry, Intact, Normal Color #1 Interpretation EKG Date: 08/21/20 Time: 20:12 Rhythm: NSR Rate (Beats/Min): 69 [place]: Normal P-Wave: Present QRS: Normal ST-T: Normal QT: Normal EKG Interpretation Comments: NSR Course - Vital Signs Text/Narrative:: The patient was seen by the [facility] [employer]. Labs, EKG, and Head CT ordered. He was given a liter of NS as patient to have dehydration or alcohol abuse highly likely. 2044 Labs reviewed. Hgb/Hct stable; Qcpaka=733, Chloride=91, BUN=6; ETOH=0.130, Troponin=neg. Will give a liter of NS. Head CT results pending. 2144 CT results reviewed, negative for acute bleeding. Labs discussed with the patient and his brother. Will plan to admit him to Observation. Will give him the liter of fluid due to his acute alcohol intoxication, then plan to fluid restrict him and start him back on salt tablets. Further discussion with the patient finds that he has been unable to tolerate oral salt tablets in the past because he gets nauseated and vomits, but he has not taken them for a couple years now. According to his brother he has been more unsteady over the last few weeks and suspect that this is more of a chronic hyponatremia. See admit orders. Last Recorded V/S: Last Vital Signs Temp 37.2 C 08/21/20 19:45 Pulse 71 08/21/20 19:45 Resp 20 08/21/20 19:45 BP 123/78 08/21/20 19:45 Pulse Ox 96 08/21/20 19:45 - Orders/Labs/Meds Orders: Active Orders 24 hr Category Date Time Status Patient Status [ADT] Routine ADT 08/21/20 21:43 Active EKG Documentation Completion [RC] ASDIRECTED Care 08/21/20 19:48 Active EKG Documentation Completion [RC] STAT Care 08/21/20 19:47 Active Implanted Port Access [RC] ASDIRECTED Care 08/21/20 20:58 Active Head wo Cont [CT] Stat Exams 08/21/20 19:48 Ordered Sodium Chloride 0.9% [Saline Flush] Med 08/21/20 19:47 Active 10 ml FLUSH ASDIRECTED PRN Sodium Chloride 0.9% [Saline Flush] Med 08/21/20 19:58 Active 10 ml FLUSH ASDIRECTED PRN Saline Lock Insert [OM.PC] Stat Oth 08/21/20 19:47 Ordered Saline Lock Insert [OM.PC] Stat [facility] 08/21/20 19:57 Ordered Medication Orders Sodium Chloride (Sodium Chloride 0.9% 10 Ml Syringe) 10 ml FLUSH ASDIRECTED PRN PRN Reason: Keep Vein Open Sodium Chloride (Sodium Chloride 0.9% 10 Ml Syringe) 10 ml FLUSH ASDIRECTED PRN PRN Reason: Keep Vein Open Labs: Laboratory Tests 08/21/20 08/21/20 08/21/20 Range/Units 20:17 20:17 20:17 WBC 6.1 (4.0-10.2) K/uL RBC 3.70 L (4.33-5.41) M/uL Hgb 12.4 L (13.1-16.8) g/dL Hct 35.2 L (39.0-49.0) % MCV 95.1 (84.0-98.0) fL MCH 33.5 H (28.2-33.3) pg MCHC 35.2 (31.7-36.0) g/dL RDW 13.9 (11.2-14.1) % Plt Count 165 (150-350) K/uL Neut % (Auto) 78.8 (45.0-80.0) % Lymph % (Auto) 6.4 L (10.0-50.0) % [place] % (Auto) 7.9 (2.0-14.0) % Eos % (Auto) 6.6 H (0.0-5.0) % Baso % (Auto) 0.3 (0.0-2.0) % Neut # (Auto) 4.81 (1.40-7.00) K/uL Lymph # (Auto) 0.39 L (0.50-3.50) K/uL [place] # (Auto) 0.48 (0.00-1.00) K/uL Eos # (Auto) 0.40 (0.00-0.50) K/uL Baso # (Auto) 0.02 (0.00-0.20) K/uL PT 13.8 H (9.5-12.0) SEC INR 1.4 APTT 29.5 (24.5-32.8) SEC Sodium 127 L (136-145) mmol/L Potassium 3.9 (3.5-5.1) mmol/L Chloride 91 L (98-107) mmol/L Carbon Dioxide 26.6 (21.0-32.0) mmol/L BUN 6 L (7-18) mg/dL Creatinine 0.60 (0.51-1.17) mg/dL Est Cr Clr Drug Dosing TNP Estimated GFR (MDRD) > 60 mL/min Glucose 83 (70-99) mg/dL Calcium 8.2 L (8.5-10.1) mg/dL Magnesium 2.0 (1.8-2.4) mg/dL Total Bilirubin 1.0 (0.2-1.0) mg/dL AST 27 (15-37) U/L ALT 25 (12-78) U/L Alkaline Phosphatase 64 (46-116) IU/L Troponin I 0.001 (0.000-0.056) ng/mL Total Protein 6.5 (6.4-8.2) g/dL Albumin 3.4 (3.4-5.0) g/dL Specimen Type Urine Color Urine Appearance Urine pH (5.0-9.0) Ur Specific [place] (1.005-1.030) Urine Protein (NEGATIVE) mg/dL Urine Glucose (UA) (NEGATIVE) mg/dL Urine Ketones (NEGATIVE) mg/dL Urine Occult Blood (NEGATIVE) Urine Nitrite (NEGATIVE) Urine Bilirubin (NEGATIVE) Urine Urobilinogen (0.2-1.0) E.U./dL Ur Leukocyte Esterase (NEGATIVE) Ethyl Alcohol 0.130 H (0.000-0.080) g/dL 08/21/20 Range/Units 21:25 WBC (4.0-10.2) K/uL RBC (4.33-5.41) M/uL Hgb (13.1-16.8) g/dL Hct (39.0-49.0) % MCV (84.0-98.0) fL MCH (28.2-33.3) pg MCHC (31.7-36.0) g/dL RDW (11.2-14.1) % Plt Count (150-350) K/uL Neut % (Auto) (45.0-80.0) % Lymph % (Auto) (10.0-50.0) % [place] % (Auto) (2.0-14.0) % Eos % (Auto) (0.0-5.0) % Baso % (Auto) (0.0-2.0) % Neut # (Auto) (1.40-7.00) K/uL Lymph # (Auto) (0.50-3.50) K/uL [place] # (Auto) (0.00-1.00) K/uL Eos # (Auto) (0.00-0.50) K/uL Baso # (Auto) (0.00-0.20) K/uL PT (9.5-12.0) SEC INR APTT (24.5-32.8) SEC Sodium (136-145) mmol/L Potassium (3.5-5.1) mmol/L Chloride (98-107) mmol/L Carbon Dioxide (21.0-32.0) mmol/L BUN (7-18) mg/dL Creatinine (0.51-1.17) mg/dL Est Cr Clr Drug Dosing Estimated GFR (MDRD) mL/min Glucose (70-99) mg/dL Calcium (8.5-10.1) mg/dL Magnesium (1.8-2.4) mg/dL Total Bilirubin (0.2-1.0) mg/dL AST (15-37) U/L ALT (12-78) U/L Alkaline Phosphatase (46-116) IU/L Troponin I (0.000-0.056) ng/mL Total Protein (6.4-8.2) g/dL Albumin (3.4-5.0) g/dL Specimen Type Urincc Urine Color Yellow Urine Appearance Clear Urine pH 5.5 (5.0-9.0) Ur Specific [place] <= 1.005 (1.005-1.030) Urine Protein Negative (NEGATIVE) mg/dL Urine Glucose (UA) Negative (NEGATIVE) mg/dL Urine Ketones Negative (NEGATIVE) mg/dL Urine Occult Blood Negative (NEGATIVE) Urine Nitrite Negative (NEGATIVE) Urine Bilirubin Negative (NEGATIVE) Urine Urobilinogen 0.2 (0.2-1.0) E.U./dL Ur Leukocyte Esterase Negative (NEGATIVE) Ethyl Alcohol (0.000-0.080) g/dL Meds: Medications Generic Name Dose Route Start Last Admin Trade Name Freq PRN Reason Stop Dose Admin Sodium Chloride 10 ml 08/21/20 19:47 Sodium Chloride 0.9% 10 Ml Syringe FLUSH ASDIRECTED PRN Keep Vein Open Sodium Chloride 10 ml 08/21/20 19:58 Sodium Chloride 0.9% 10 Ml Syringe FLUSH ASDIRECTED PRN Keep Vein Open Discontinued Medications Generic Name Dose Route Start Last Admin Trade Name Freq PRN Reason Stop Dose Admin Sodium Chloride 1,000 mls @ 999 mls/hr 08/21/20 20:17 Normal Saline IV 08/21/20 21:17 .BOLUS ONE Departure - Departure Time of Disposition: 22:02 Disposition: Refer to Observation Condition: Good Clinical Impression: Hyponatremia, Hyponatremia, Anticoagulant long-term use, Loss of consciousness Acute alcohol intoxication Qualifiers: Complication of substance-induced condition: with unspecified complication Qualified Code(s): F10.929 - Alcohol use, unspecified with intoxication, unspecified Fall Qualifiers: Encounter type: initial encounter Qualified Code(s): W19.XXXA - Unspecified fall, initial encounter - Discharge Information Referrals: PCP,None [Primary Care Provider] - Forms: ED Department Discharge Sepsis Event Note (ED) - Evaluation Sepsis Screening Result: No Definite Risk - Focused Exam Vital Signs: Vital Signs Temp Pulse Resp BP Pulse Ox 08/21/20 19:45 37.2 C 71 20 123/78 96 - Problem List & Annotations (1) Hyponatremia SNOMED Code(s): 84337515 Code(s): E87.1 - HYPO-OSMOLALITY AND HYPONATREMIA Status: Acute Priority: Low Current Visit: Yes (2) Acute alcohol intoxication SNOMED Code(s): 75400644, 21363345 Code(s): F10.929 - ALCOHOL USE, UNSPECIFIED WITH INTOXICATION, UNSPECIFIED Status: Acute Current Visit: Yes Annotation/Comment:: ETOH=0.130 tonight in the ER. Admits to daily use. Will observe and monitor for DTs. Qualifiers: Complication of substance-induced condition: with unspecified complication Qualified Code(s): F10.929 - Alcohol use, unspecified with intoxication, unspecified (3) Alcohol abuse SNOMED Code(s): 92730898 Code(s): F10.10 - ALCOHOL ABUSE, UNCOMPLICATED Status: Chronic Priority: Medium Current Visit: No (4) Fall SNOMED Code(s): 6019492, 968157209 Code(s): W19.XXXA - UNSPECIFIED FALL, INITIAL ENCOUNTER Status: Acute Current Visit: Yes Annotation/Comment:: Difficult to determine if the the nyponatremia or the alcohol intoxication was the cause, probably both contributed. Head CT negative for any acute bleeding. Noted superficial laceration to scalp. No other injuries noted. Qualifiers: Encounter type: initial encounter Qualified Code(s): W19.XXXA - Unspecified fall, initial encounter (5) Loss of consciousness SNOMED Code(s): 946378255, 584724616 Code(s): R40.20 - UNSPECIFIED COMA Status: Acute Current Visit: Yes Annotation/Comment:: Negative HEadt CT, will monitor during Obversation admit. (6) Anticoagulant long-term use SNOMED Code(s): 591663754 Code(s): Z79.01 - PENITENTIARY (CURRENT) USE OF ANTICOAGULANTS Status: Acute Current Visit: Yes Annotation/Comment:: Takes Coumadin 5mg daily for DVT. No acute bleeding noted on Head CT after fall. INR=1.4, subtherapeutic but suspect poor medication compliance due to alcohol use. Plan repeat INR in 2-3 days if still here on Observation. - Problem List Review Problem List Initiated/Reviewed/Updated: Yes - My Orders Last 24 Hours: My Active Orders 08/21/20 19:47 EKG Documentation Completion [RC] STAT Sodium Chloride 0.9% [Saline Flush] 10 ml FLUSH ASDIRECTED PRN Saline Lock Insert [OM.PC] Stat 08/21/20 19:48 EKG Documentation Completion [RC] ASDIRECTED Head wo Cont [CT] Stat 08/21/20 19:57 Saline Lock Insert [OM.PC] Stat 08/21/20 19:58 Sodium Chloride 0.9% [Saline Flush] 10 ml FLUSH ASDIRECTED PRN 08/21/20 20:58 Implanted Port Access [RC] ASDIRECTED 08/21/20 21:43 Patient Status [ADT] Routine - Assessment/Plan Last 24 Hours: My Active Orders 08/21/20 19:47 EKG Documentation Completion [RC] STAT Sodium Chloride 0.9% [Saline Flush] 10 ml FLUSH ASDIRECTED PRN Saline Lock Insert [OM.PC] Stat 08/21/20 19:48 EKG Documentation Completion [RC] ASDIRECTED Head wo Cont [CT] Stat 08/21/20 19:57 Saline Lock Insert [OM.PC] Stat 08/21/20 19:58 Sodium Chloride 0.9% [Saline Flush] 10 ml FLUSH ASDIRECTED PRN 08/21/20 20:58 Implanted Port Access [RC] ASDIRECTED 08/21/20 21:43 Patient Status [ADT] Routine Assessment:: As above Plan: -Repeat labs in the AM -Telemetry -Dr Bell to assume care of the patient tomorrow AM at shift change.
[2020-08-21] MEDS ORDERED: Sodium Chloride 0.9% 10 ML Syringe FLUSH PRN (19:58)
[2020-08-21] MEDS ORDERED: Sodium Chloride 0.9% 1,000 ML IV ONE (20:17)
[2020-08-21 20:40] LABS: CHLORIDE,CL 91 mmol/L (98-107); SODIUM,NA 127 mmol/L (136-145)
[2020-08-21 20:48] LABS: PTT,PARTIAL THROMBOPLSTIN TIME 29.5 SEC (24.5-32.8)
[2020-08-21] MEDS ORDERED: Ondansetron 4 MG/2 ML SDV IVPUSH PRN (22:13)
[2020-08-21] MEDS ORDERED: Albuterol 6.7 GM Inhaler INH PRN (22:18)
[2020-08-21] MEDS: Ondansetron 4 MG Tab.DIS PO PRN (23:04)
[2020-08-21] MEDS: Sodium Chloride 1 GM Tab PO SCH (23:04)
[2020-08-22] MEDS: Sodium Chloride 0.9% 10 ML Syringe FLUSH PRN ×2 (05:21→23:07)
[2020-08-22] MEDS: Sodium Chloride 1 GM Tab PO SCH ×2 (07:21→17:44)
[2020-08-22] MEDS: Levothyroxine 150 MCG Tab PO SCH (07:21)
[2020-08-22] MEDS: Ondansetron 4 MG Tab.DIS PO PRN (07:22)
[2020-08-22] MEDS: Lisinopril 10 MG Tab PO SCH (07:22)
[2020-08-22 07:39] LABS: CHLORIDE,CL 97 mmol/L (98-107); SODIUM,NA 133 mmol/L (136-145)
[2020-08-22] MEDS ORDERED: Warfarin 5 MG Tab PO SCH (08:00)
--- NOTE | 2020-08-22 09:50 | PCM.PN ---
- General Info Date of Service: 08/22/20 Admission Dx/Problem (Free Text): 1. Fall 2. Hyponatremia 3. Alcohol abuse 4. COPD Functional Status: Reports: Pain Controlled, Tolerating Diet, Ambulating, Urinating, Incentive Spirometry. Denies: New Symptoms Pain Score: 0 - Review of Systems General: Reports: Weakness (Stable chronic). Denies: Fever (Maximum temperature 37.2 degrees since admission), Fatigue, Malaise, Chills, Appetite (Adequate) HEENT: Reports: Glasses. Denies: Dysphasia, Ear Pain, Eye Pain, Headaches, Post Nasal Drip, Sinus Congestion, Sore Throat, Visual Changes Pulmonary: Reports: Cough (Stable chronic). Denies: Shortness of Breath, Pleuritic Chest Pain, Sputum, Hemoptysis, Wheezing Cardiovascular: Reports: No Symptoms. Denies: Chest Pain, Palpitations, Dyspnea on Exertion, Orthopnea, PND, Edema Gastrointestinal: Reports: No Symptoms, Other (Normal bowel movement earlier this morning). Denies: Abdominal Pain, Constipation, Decreased Appetite, Diarrhea, Difficulty Swallowing, Flatus, Hematochezia, Melena, Nausea, Vomiting Genitourinary: Reports: No Symptoms. Denies: Dysuria, Frequency, Burning, Urgency, Incontinence, Hematuria, Retention, Flank Pain Musculoskeletal: Reports: No Symptoms. Denies: Neck Pain, Shoulder Pain, Arm Pain, Back Pain, Leg Pain, Joint Pain Skin: Reports: Bruising (Stable chronic). Denies: Diaphoresis, Rash Neurological: Reports: Weakness (Stable chronic), Other (No DTs). Denies: Confusion Psychiatric: Reports: No Symptoms. Denies: Confusion, Depression, Anxiety, Agitation, Cravings, Hallucinations - Patient Data Vitals - Most Recent: Last Vital Signs Temp 37.1 C 08/22/20 08:00 Pulse 80 08/22/20 08:00 Resp 16 08/22/20 08:00 BP 130/85 08/22/20 08:00 Pulse Ox 99 08/22/20 08:00 Vital Signs - 24 hr 08/21/20 08/21/20 08/21/20 19:45 21:50 22:25 Temperature [ 37.2 C 37.2 C 37.2 C Temporal] Pulse, 71 69 69 Peripheral [ Pulse Oximetry] Respiratory 20 20 20 Rate Blood Pressure Blood Pressure 123/78 157/89 H 157/89 H [Right Upper Arm] O2 Sat by Pulse 96 97 97 Oximetry 08/21/20 08/22/20 08/22/20 23:54 04:00 07:22 Temperature [ 36.6 C 36.9 C Temporal] Pulse, 82 89 Peripheral [ Pulse Oximetry] Respiratory 18 18 Rate Blood Pressure 130/85 Blood Pressure 135/87 132/87 [Right Upper Arm] O2 Sat by Pulse 91 L 93 L Oximetry 08/22/20 08:00 Temperature [ 37.1 C Temporal] Pulse, 80 Peripheral [ Pulse Oximetry] Respiratory 16 Rate Blood Pressure Blood Pressure 130/85 [Right Upper Arm] O2 Sat by Pulse 99 Oximetry Weight - Most Recent: 70.76 kg I&O - Last 24 Hours: Intake & Output 08/21/20 08/22/20 08/22/20 22:59 06:59 14:59 Intake Total 500 Output Total 600 Balance -600 500 Imaging Impressions - 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 with no ectopy or arrhythmia Lab Results Last 24 Hours: Laboratory Results - last 24 hr 08/21/20 08/21/20 08/21/20 Range/Units 20:17 20:17 20:17 WBC 6.1 (4.0-10.2) K/uL RBC 3.70 L (4.33-5.41) M/uL Hgb 12.4 L (13.1-16.8) g/dL Hct 35.2 L (39.0-49.0) % MCV 95.1 (84.0-98.0) fL MCH 33.5 H (28.2-33.3) pg MCHC 35.2 (31.7-36.0) g/dL RDW 13.9 (11.2-14.1) % Plt Count 165 (150-350) K/uL Neut % (Auto) 78.8 (45.0-80.0) % Lymph % (Auto) 6.4 L (10.0-50.0) % [place] % (Auto) 7.9 (2.0-14.0) % Eos % (Auto) 6.6 H (0.0-5.0) % Baso % (Auto) 0.3 (0.0-2.0) % Neut # (Auto) 4.81 (1.40-7.00) K/uL Lymph # (Auto) 0.39 L (0.50-3.50) K/uL [place] # (Auto) 0.48 (0.00-1.00) K/uL Eos # (Auto) 0.40 (0.00-0.50) K/uL Baso # (Auto) 0.02 (0.00-0.20) K/uL PT 13.8 H (9.5-12.0) SEC INR 1.4 APTT 29.5 (24.5-32.8) SEC Sodium 127 L (136-145) mmol/L Potassium 3.9 (3.5-5.1) mmol/L Chloride 91 L (98-107) mmol/L Carbon Dioxide 26.6 (21.0-32.0) mmol/L BUN 6 L (7-18) mg/dL Creatinine 0.60 (0.51-1.17) mg/dL Est Cr Clr Drug Dosing TNP Estimated GFR (MDRD) > 60 mL/min Glucose 83 (70-99) mg/dL Calcium 8.2 L (8.5-10.1) mg/dL Magnesium 2.0 (1.8-2.4) mg/dL Total Bilirubin 1.0 (0.2-1.0) mg/dL AST 27 (15-37) U/L ALT 25 (12-78) U/L Alkaline Phosphatase 64 (46-116) IU/L Troponin I 0.001 (0.000-0.056) ng/mL Total Protein 6.5 (6.4-8.2) g/dL Albumin 3.4 (3.4-5.0) g/dL Specimen Type Urine Color Urine Appearance Urine pH (5.0-9.0) Ur Specific Benson (1.005-1.030) Urine Protein (NEGATIVE) mg/dL Urine Glucose (UA) (NEGATIVE) mg/dL Urine Ketones (NEGATIVE) mg/dL Urine Occult Blood (NEGATIVE) Urine Nitrite (NEGATIVE) Urine Bilirubin (NEGATIVE) Urine Urobilinogen (0.2-1.0) E.U./dL Ur Leukocyte Esterase (NEGATIVE) Ethyl Alcohol 0.130 H (0.000-0.080) g/dL 08/21/20 08/22/20 08/22/20 Range/Units 21:25 07:09 07:09 WBC 5.7 (4.0-10.2) K/uL RBC 4.13 L (4.33-5.41) M/uL Hgb 13.6 (13.1-16.8) g/dL Hct 39.7 (39.0-49.0) % MCV 96.1 (84.0-98.0) fL MCH 32.9 (28.2-33.3) pg MCHC 34.3 (31.7-36.0) g/dL RDW 14.1 (11.2-14.1) % Plt Count 157 (150-350) K/uL Neut % (Auto) 78.6 (45.0-80.0) % Lymph % (Auto) 6.7 L (10.0-50.0) % [place] % (Auto) 8.1 (2.0-14.0) % Eos % (Auto) 6.1 H (0.0-5.0) % Baso % (Auto) 0.5 (0.0-2.0) % Neut # (Auto) 4.48 (1.40-7.00) K/uL Lymph # (Auto) 0.38 L (0.50-3.50) K/uL [place] # (Auto) 0.46 (0.00-1.00) K/uL Eos # (Auto) 0.35 (0.00-0.50) K/uL Baso # (Auto) 0.03 (0.00-0.20) K/uL PT (9.5-12.0) SEC INR APTT (24.5-32.8) SEC Sodium 133 L (136-145) mmol/L Potassium 4.5 (3.5-5.1) mmol/L Chloride 97 L (98-107) mmol/L Carbon Dioxide 27.9 (21.0-32.0) mmol/L BUN 6 L (7-18) mg/dL Creatinine 0.59 (0.51-1.17) mg/dL Est Cr Clr Drug Dosing 104.24 Estimated GFR (MDRD) > 60 mL/min Glucose 81 (70-99) mg/dL Calcium 8.3 L (8.5-10.1) mg/dL Magnesium 2.1 (1.8-2.4) mg/dL Total Bilirubin (0.2-1.0) mg/dL AST (15-37) U/L ALT (12-78) U/L Alkaline Phosphatase (46-116) IU/L Troponin I (0.000-0.056) ng/mL Total Protein (6.4-8.2) g/dL Albumin (3.4-5.0) g/dL Specimen Type Urincc Urine Color Yellow Urine Appearance Clear Urine pH 5.5 (5.0-9.0) Ur Specific Benson <= 1.005 (1.005-1.030) Urine Protein Negative (NEGATIVE) mg/dL Urine Glucose (UA) Negative (NEGATIVE) mg/dL Urine Ketones Negative (NEGATIVE) mg/dL Urine Occult Blood Negative (NEGATIVE) Urine Nitrite Negative (NEGATIVE) Urine Bilirubin Negative (NEGATIVE) Urine Urobilinogen 0.2 (0.2-1.0) E.U./dL Ur Leukocyte Esterase Negative (NEGATIVE) Ethyl Alcohol 0.001 (0.000-0.080) g/dL Laboratory Tests 08/21/20 08/21/20 08/21/20 Range/Units 20:17 20:17 20:17 WBC 6.1 (4.0-10.2) K/uL RBC 3.70 L (4.33-5.41) M/uL Hgb 12.4 L (13.1-16.8) g/dL Hct 35.2 L (39.0-49.0) % MCV 95.1 (84.0-98.0) fL MCH 33.5 H (28.2-33.3) pg MCHC 35.2 (31.7-36.0) g/dL RDW 13.9 (11.2-14.1) % Plt Count 165 (150-350) K/uL Neut % (Auto) 78.8 (45.0-80.0) % Lymph % (Auto) 6.4 L (10.0-50.0) % [place] % (Auto) 7.9 (2.0-14.0) % Eos % (Auto) 6.6 H (0.0-5.0) % Baso % (Auto) 0.3 (0.0-2.0) % Neut # (Auto) 4.81 (1.40-7.00) K/uL Lymph # (Auto) 0.39 L (0.50-3.50) K/uL [place] # (Auto) 0.48 (0.00-1.00) K/uL Eos # (Auto) 0.40 (0.00-0.50) K/uL Baso # (Auto) 0.02 (0.00-0.20) K/uL PT 13.8 H (9.5-12.0) SEC INR 1.4 APTT 29.5 (24.5-32.8) SEC D-Dimer, Quantitative (0-400) ng/mL Sodium 127 L (136-145) mmol/L Potassium 3.9 (3.5-5.1) mmol/L Chloride 91 L (98-107) mmol/L Carbon Dioxide 26.6 (21.0-32.0) mmol/L BUN 6 L (7-18) mg/dL Creatinine 0.60 (0.51-1.17) mg/dL Est Cr Clr Drug Dosing TNP Estimated GFR (MDRD) > 60 mL/min Glucose 83 (70-99) mg/dL Calcium 8.2 L (8.5-10.1) mg/dL Magnesium 2.0 (1.8-2.4) mg/dL Total Bilirubin 1.0 (0.2-1.0) mg/dL AST 27 (15-37) U/L ALT 25 (12-78) U/L Alkaline Phosphatase 64 (46-116) IU/L Troponin I 0.001 (0.000-0.056) ng/mL NT-Pro-B Natriuret Pep (0-125) pg/mL Total Protein 6.5 (6.4-8.2) g/dL Albumin 3.4 (3.4-5.0) g/dL TSH, Ultra Sensitive (0.358-3.740) mIU/mL Specimen Type Urine Color Urine Appearance Urine pH (5.0-9.0) Ur Specific Benson (1.005-1.030) Urine Protein (NEGATIVE) mg/dL Urine Glucose (UA) (NEGATIVE) mg/dL Urine Ketones (NEGATIVE) mg/dL Urine Occult Blood (NEGATIVE) Urine Nitrite (NEGATIVE) Urine Bilirubin (NEGATIVE) Urine Urobilinogen (0.2-1.0) E.U./dL Ur Leukocyte Esterase (NEGATIVE) Ethyl Alcohol 0.130 H (0.000-0.080) g/dL 08/21/20 08/22/20 08/22/20 Range/Units 21:25 07:09 07:09 WBC 5.7 (4.0-10.2) K/uL RBC 4.13 L (4.33-5.41) M/uL Hgb 13.6 (13.1-16.8) g/dL Hct 39.7 (39.0-49.0) % MCV 96.1 (84.0-98.0) fL MCH 32.9 (28.2-33.3) pg MCHC 34.3 (31.7-36.0) g/dL RDW 14.1 (11.2-14.1) % Plt Count 157 (150-350) K/uL Neut % (Auto) 78.6 (45.0-80.0) % Lymph % (Auto) 6.7 L (10.0-50.0) % [place] % (Auto) 8.1 (2.0-14.0) % Eos % (Auto) 6.1 H (0.0-5.0) % Baso % (Auto) 0.5 (0.0-2.0) % Neut # (Auto) 4.48 (1.40-7.00) K/uL Lymph # (Auto) 0.38 L (0.50-3.50) K/uL [place] # (Auto) 0.46 (0.00-1.00) K/uL Eos # (Auto) 0.35 (0.00-0.50) K/uL Baso # (Auto) 0.03 (0.00-0.20) K/uL PT (9.5-12.0) SEC INR APTT (24.5-32.8) SEC D-Dimer, Quantitative (0-400) ng/mL Sodium 133 L (136-145) mmol/L Potassium 4.5 (3.5-5.1) mmol/L Chloride 97 L (98-107) mmol/L Carbon Dioxide 27.9 (21.0-32.0) mmol/L BUN 6 L (7-18) mg/dL Creatinine 0.59 (0.51-1.17) mg/dL Est Cr Clr Drug Dosing 104.24 Estimated GFR (MDRD) > 60 mL/min Glucose 81 (70-99) mg/dL Calcium 8.3 L (8.5-10.1) mg/dL Magnesium 2.1 (1.8-2.4) mg/dL Total Bilirubin (0.2-1.0) mg/dL AST (15-37) U/L ALT (12-78) U/L Alkaline Phosphatase (46-116) IU/L Troponin I (0.000-0.056) ng/mL NT-Pro-B Natriuret Pep (0-125) pg/mL Total Protein (6.4-8.2) g/dL Albumin (3.4-5.0) g/dL TSH, Ultra Sensitive (0.358-3.740) mIU/mL Specimen Type Urincc Urine Color Yellow Urine Appearance Clear Urine pH 5.5 (5.0-9.0) Ur Specific Benson <= 1.005 (1.005-1.030) Urine Protein Negative (NEGATIVE) mg/dL Urine Glucose (UA) Negative (NEGATIVE) mg/dL Urine Ketones Negative (NEGATIVE) mg/dL Urine Occult Blood Negative (NEGATIVE) Urine Nitrite Negative (NEGATIVE) Urine Bilirubin Negative (NEGATIVE) Urine Urobilinogen 0.2 (0.2-1.0) E.U./dL Ur Leukocyte Esterase Negative (NEGATIVE) Ethyl Alcohol 0.001 (0.000-0.080) g/dL 08/22/20 08/22/20 Range/Units 07:09 07:09 WBC (4.0-10.2) K/uL RBC (4.33-5.41) M/uL Hgb (13.1-16.8) g/dL Hct (39.0-49.0) % MCV (84.0-98.0) fL MCH (28.2-33.3) pg MCHC (31.7-36.0) g/dL RDW (11.2-14.1) % Plt Count (150-350) K/uL Neut % (Auto) (45.0-80.0) % Lymph % (Auto) (10.0-50.0) % [place] % (Auto) (2.0-14.0) % Eos % (Auto) (0.0-5.0) % Baso % (Auto) (0.0-2.0) % Neut # (Auto) (1.40-7.00) K/uL Lymph # (Auto) (0.50-3.50) K/uL [place] # (Auto) (0.00-1.00) K/uL Eos # (Auto) (0.00-0.50) K/uL Baso # (Auto) (0.00-0.20) K/uL PT (9.5-12.0) SEC INR APTT (24.5-32.8) SEC D-Dimer, Quantitative 1570 H (0-400) ng/mL Sodium (136-145) mmol/L Potassium (3.5-5.1) mmol/L Chloride (98-107) mmol/L Carbon Dioxide (21.0-32.0) mmol/L BUN (7-18) mg/dL Creatinine (0.51-1.17) mg/dL Est Cr Clr Drug Dosing Estimated GFR (MDRD) mL/min Glucose (70-99) mg/dL Calcium (8.5-10.1) mg/dL Magnesium (1.8-2.4) mg/dL Total Bilirubin (0.2-1.0) mg/dL AST (15-37) U/L ALT (12-78) U/L Alkaline Phosphatase (46-116) IU/L Troponin I 0.000 (0.000-0.056) ng/mL NT-Pro-B Natriuret Pep 431 H (0-125) pg/mL Total Protein (6.4-8.2) g/dL Albumin (3.4-5.0) g/dL TSH, Ultra Sensitive 14.057 H (0.358-3.740) mIU/mL Specimen Type Urine Color Urine Appearance Urine pH (5.0-9.0) Ur Specific Benson (1.005-1.030) Urine Protein (NEGATIVE) mg/dL Urine Glucose (UA) (NEGATIVE) mg/dL Urine Ketones (NEGATIVE) mg/dL Urine Occult Blood (NEGATIVE) Urine Nitrite (NEGATIVE) Urine Bilirubin (NEGATIVE) Urine Urobilinogen (0.2-1.0) E.U./dL Ur Leukocyte Esterase (NEGATIVE) Ethyl Alcohol (0.000-0.080) g/dL Janak Results Last 24 Hours: None Med Orders - Current: Current Medications Albuterol (Albuterol 6.7 Gm Inhaler) 0 gm INH Q4H PRN PRN Reason: Dyspnea Heparin Sodium (Porcine) (Heparin Sodium 100 Units/Ml 5 Ml Syringe) 500 units FLUSH ASDIRECTED PRN PRN Reason: Other Last Admin: 08/22/20 05:21 Dose: 500 units Documented by: Levothyroxine Sodium (Levothyroxine 150 Mcg Tab) 150 mcg PO ACBREAKFAST [facility] Last Admin: 08/22/20 07:21 Dose: 150 mcg Documented by: Lisinopril (Lisinopril 10 Mg Tab) 10 mg PO DAILY [facility] Last Admin: 08/22/20 07:22 Dose: 10 mg Documented by: Ondansetron HCl (Ondansetron 4 Mg Tab.Dis) 4 mg PO Q4H PRN PRN Reason: Nausea/Vomiting Last Admin: 08/22/20 07:22 Dose: 4 mg Documented by: Ondansetron HCl (Ondansetron 4 Mg/2 Ml Sdv) 4 mg IVPUSH Q4H PRN PRN Reason: Nausea/Vomiting Sodium Chloride (Sodium Chloride 0.9% 10 Ml Syringe) 10 ml FLUSH ASDIRECTED PRN PRN Reason: Keep Vein Open Last Admin: 08/22/20 05:21 Dose: 10 ml Documented by: Sodium Chloride (Sodium Chloride 0.9% 10 Ml Syringe) 10 ml FLUSH ASDIRECTED PRN PRN Reason: Keep Vein Open Sodium Chloride (Sodium Chloride 1 Gm Tab) 1 gm PO BID [facility] Last Admin: 08/22/20 07:21 Dose: 1 gm Documented by: Warfarin Sodium (Warfarin 5 Mg Tab) 5 mg PO DAILY [facility] Last Admin: 08/22/20 07:21 Dose: 5 mg Documented by: Discontinued Medications Sodium Chloride (Normal Saline) 1,000 mls @ 999 mls/hr IV .BOLUS ONE Stop: 08/21/20 21:17 Last Admin: 08/21/20 23:04 Dose: 999 mls/hr Documented by: - Exam Quality Assessment: Central Line/PICC (Left-sided Port-A-Cath), DVT Prophylaxis (Coumadin although subtherapeutic). No: Supplemental Oxygen, Urine Catheter, Skin Breakdown, Restraints General: Alert, Oriented, Cooperative, No Acute Distress HEENT: Pupils Equal, Pupils Reactive, EOMI, Mucous Membr. Moist/[place], Other (Patient is wearing glasses). No: Scleral Icterus Neck: Supple, Trachea Midline, No JVD, No Thyromegaly. No: Lymphadenopathy Lungs: Clear to Auscultation, Normal Respiratory Effort. No: Rhonchi, Rub, Wheezing Cardiovascular: Regular Rate, Regular Rhythm, No Murmurs, Other (Right-sided Port-A-Cath). No: Gallops, Rubs GI/Abdominal Exam: Normal Bowel Sounds, Soft, Non-Tender, No Organomegaly, No Distention, No Abnormal Bruit, No Mass. No: Guarding (Male) Exam: Deferred Back Exam: Normal Inspection, Full Range of Motion. No: CVA Tenderness (L), CVA Tenderness (R), Muscle Spasm Extremities: Normal Range of Motion, Non-Tender, No Pedal Edema, Normal Capillary Refill, Other (Multiple superficial scratches, abrasions, etc. with stable chronic bilateral ecchymosis particularly forearms bilaterally secondary to previous Coumadin therapy). No: Amelia's Sign Peripheral Pulses: 2+: Radial (L), Radial (R), Dorsalis Pedis (L), Dorsalis Pedis (R) Skin: Ecchymosis (As above), Other (Scratches as above). No: Rash Wound/Incisions: Healing Well Neurological: No New Focal Deficit, Other (No clinical orthostasis. Stable generalized weakness) Psy/Mental Status: Anxious, Depressed (Mild mild). No: Agitated, Hallucinations, Withdrawal Symptoms #1 Interpretation EKG Date: 08/22/20 Time: 09:41 Rhythm: NSR Rate (Beats/Min): 80 [place]: Normal (Neutral) P-Wave: Enlarged (Mild diffuse biphasic P waves) QRS: Normal (0.08 seconds representing repolarization changes) ST-T: Other (T wave inversion lead aVLstable) QT: Normal NC/PQ Interval: 0.19 seconds representing resolution of previous first-degree AV block on 08/21/2020. New pulmonary hypertension by EKG since last EKG as above Comparison: Change From Previous EKG (As above) EKG Interpretation Comments: 1. No acute ischemic changes 2. First-degree AV blockresolved 3. Repolarization changes 4. Left atrial enlargement 5. Pulmonary hypertension by EKG - Patient Data Lab Results Last 24 hrs: Laboratory Results - last 24 hr 08/21/20 08/21/20 08/21/20 Range/Units 20:17 20:17 20:17 WBC 6.1 (4.0-10.2) K/uL RBC 3.70 L (4.33-5.41) M/uL Hgb 12.4 L (13.1-16.8) g/dL Hct 35.2 L (39.0-49.0) % MCV 95.1 (84.0-98.0) fL MCH 33.5 H (28.2-33.3) pg MCHC 35.2 (31.7-36.0) g/dL RDW 13.9 (11.2-14.1) % Plt Count 165 (150-350) K/uL Neut % (Auto) 78.8 (45.0-80.0) % Lymph % (Auto) 6.4 L (10.0-50.0) % [place] % (Auto) 7.9 (2.0-14.0) % Eos % (Auto) 6.6 H (0.0-5.0) % Baso % (Auto) 0.3 (0.0-2.0) % Neut # (Auto) 4.81 (1.40-7.00) K/uL Lymph # (Auto) 0.39 L (0.50-3.50) K/uL [place] # (Auto) 0.48 (0.00-1.00) K/uL Eos # (Auto) 0.40 (0.00-0.50) K/uL Baso # (Auto) 0.02 (0.00-0.20) K/uL PT 13.8 H (9.5-12.0) SEC INR 1.4 APTT 29.5 (24.5-32.8) SEC Sodium 127 L (136-145) mmol/L Potassium 3.9 (3.5-5.1) mmol/L Chloride 91 L (98-107) mmol/L Carbon Dioxide 26.6 (21.0-32.0) mmol/L BUN 6 L (7-18) mg/dL Creatinine 0.60 (0.51-1.17) mg/dL Est Cr Clr Drug Dosing TNP Estimated GFR (MDRD) > 60 mL/min Glucose 83 (70-99) mg/dL Calcium 8.2 L (8.5-10.1) mg/dL Magnesium 2.0 (1.8-2.4) mg/dL Total Bilirubin 1.0 (0.2-1.0) mg/dL AST 27 (15-37) U/L ALT 25 (12-78) U/L Alkaline Phosphatase 64 (46-116) IU/L Troponin I 0.001 (0.000-0.056) ng/mL Total Protein 6.5 (6.4-8.2) g/dL Albumin 3.4 (3.4-5.0) g/dL Specimen Type Urine Color Urine Appearance Urine pH (5.0-9.0) Ur Specific Benson (1.005-1.030) Urine Protein (NEGATIVE) mg/dL Urine Glucose (UA) (NEGATIVE) mg/dL Urine Ketones (NEGATIVE) mg/dL Urine Occult Blood (NEGATIVE) Urine Nitrite (NEGATIVE) Urine Bilirubin (NEGATIVE) Urine Urobilinogen (0.2-1.0) E.U./dL Ur Leukocyte Esterase (NEGATIVE) Ethyl Alcohol 0.130 H (0.000-0.080) g/dL 08/21/20 08/22/20 08/22/20 Range/Units 21:25 07:09 07:09 WBC 5.7 (4.0-10.2) K/uL RBC 4.13 L (4.33-5.41) M/uL Hgb 13.6 (13.1-16.8) g/dL Hct 39.7 (39.0-49.0) % MCV 96.1 (84.0-98.0) fL MCH 32.9 (28.2-33.3) pg MCHC 34.3 (31.7-36.0) g/dL RDW 14.1 (11.2-14.1) % Plt Count 157 (150-350) K/uL Neut % (Auto) 78.6 (45.0-80.0) % Lymph % (Auto) 6.7 L (10.0-50.0) % [place] % (Auto) 8.1 (2.0-14.0) % Eos % (Auto) 6.1 H (0.0-5.0) % Baso % (Auto) 0.5 (0.0-2.0) % Neut # (Auto) 4.48 (1.40-7.00) K/uL Lymph # (Auto) 0.38 L (0.50-3.50) K/uL [place] # (Auto) 0.46 (0.00-1.00) K/uL Eos # (Auto) 0.35 (0.00-0.50) K/uL Baso # (Auto) 0.03 (0.00-0.20) K/uL PT (9.5-12.0) SEC INR APTT (24.5-32.8) SEC Sodium 133 L (136-145) mmol/L Potassium 4.5 (3.5-5.1) mmol/L Chloride 97 L (98-107) mmol/L Carbon Dioxide 27.9 (21.0-32.0) mmol/L BUN 6 L (7-18) mg/dL Creatinine 0.59 (0.51-1.17) mg/dL Est Cr Clr Drug Dosing 104.24 Estimated GFR (MDRD) > 60 mL/min Glucose 81 (70-99) mg/dL Calcium 8.3 L (8.5-10.1) mg/dL Magnesium 2.1 (1.8-2.4) mg/dL Total Bilirubin (0.2-1.0) mg/dL AST (15-37) U/L ALT (12-78) U/L Alkaline Phosphatase (46-116) IU/L Troponin I (0.000-0.056) ng/mL Total Protein (6.4-8.2) g/dL Albumin (3.4-5.0) g/dL Specimen Type Urincc Urine Color Yellow Urine Appearance Clear Urine pH 5.5 (5.0-9.0) Ur Specific Benson <= 1.005 (1.005-1.030) Urine Protein Negative (NEGATIVE) mg/dL Urine Glucose (UA) Negative (NEGATIVE) mg/dL Urine Ketones Negative (NEGATIVE) mg/dL Urine Occult Blood Negative (NEGATIVE) Urine Nitrite Negative (NEGATIVE) Urine Bilirubin Negative (NEGATIVE) Urine Urobilinogen 0.2 (0.2-1.0) E.U./dL Ur Leukocyte Esterase Negative (NEGATIVE) Ethyl Alcohol 0.001 (0.000-0.080) g/dL Result Diagrams: 08/22/20 07:09 08/22/20 07:09 Sepsis Event Note - Evaluation Sepsis Screening Result: No Definite Risk - Focused Exam Vital Signs: Vital Signs Temp Pulse Resp BP BP Pulse Ox 08/22/20 08:00 37.1 C 80 16 130/85 99 08/22/20 07:22 130/85 08/22/20 04:00 36.9 C 89 18 132/87 93 L 08/21/20 23:54 36.6 C 82 18 135/87 91 L 08/21/20 22:25 37.2 C 69 20 157/89 H 97 08/21/20 21:50 37.2 C 69 20 157/89 H 97 - Problem List & Annotations (1) Syncope SNOMED Code(s): 470783640 Code(s): R55 - SYNCOPE AND COLLAPSE Status: Acute Priority: High Current Visit: Yes Onset Date: 08/21/20 Qualifiers: Encounter type: initial encounter Annotation/Comment:: Possible syncopal episode as above, however note positive alcohol level and history of alcohol abuse. Continue cardiac work-up as below. Consider echocardiogram on an outpatient basis as below. No normal CT scan of the head in the emergency room. D-dimer elevation as below with subtherapeutic INR, history of recurrent DVTs, and current lung cancer with venous Doppler studies of the lower extremities and CTA of the chest to be conducted on 08/22. (2) Hyponatremia SNOMED Code(s): 70709625 Code(s): E87.1 - HYPO-OSMOLALITY AND HYPONATREMIA Status: Acute Priority: High Current Visit: Yes Annotation/Comment:: Sodium level 127 tonight in the ER prior to admission and improved with IV fluids. Patient has been noncompliant with his oral sodium chloride supplementation with this reinitiated during this hospitalization. Medication compliance was strongly encouraged. Note history of chronic hyponatremia in the past. He has been more unsteady and then passed out tonight with possible true syncopal episode. Note elevated alcohol level prior to admission, which did normalize on 08/22/2020. Troponin I and BNP ordered on 08/22 with continuation of standard rule out [place] orders, however no clinical evidence of significant CHF, chest pain, anginal type symptoms, etc.. Consider echocardiogram on an outpatient basis. Some BNP elevation with mild CHF as a as contributing factor to his chronic hyponatremia. Initiated fluid restricted diet on 08/22. Repeat BMP in the AM. (3) COPD (chronic obstructive pulmonary disease) SNOMED Code(s): 82599970 Code(s): J44.9 - CHRONIC OBSTRUCTIVE PULMONARY DISEASE, UNSPECIFIED Status: Chronic Priority: Medium Current Visit: Yes Qualifiers: COPD type: emphysema Emphysema type: panlobular Qualified Code(s): J43.1 - Panlobular emphysema Annotation/Comment:: No recent fever or bronchitic type symptoms with stable chronic mostly nonproductive cough. Continue current medical therapy. Tobacco cessation advisable. (4) First degree AV block SNOMED Code(s): 097266802 Code(s): I44.0 - ATRIOVENTRICULAR BLOCK, FIRST DEGREE Status: Acute Priority: Medium Current Visit: Yes Onset Date: 08/21/20 Annotation/Comment:: Resolved on 08/22/2020. Observe for now. Note history of PVCs, which have been nonproblematic and nonsymptomatic to this point. (5) Anemia SNOMED Code(s): 421939932 Code(s): D64.9 - ANEMIA, UNSPECIFIED Status: Chronic Priority: Medium Current Visit: Yes Qualifiers: Anemia type: other cause Other causes of anemia: other cause, not cla ssified Qualified Code(s): D64.89 - Other specified anemias Annotation/Comment:: No history of alcohol abuse and lung cancer. Further blood work in the a.m. No evidence of acute GI bleed. (6) CHF (congestive heart failure) SNOMED Code(s): 43114951 Code(s): I50.9 - HEART FAILURE, UNSPECIFIED Status: Acute Priority: High Current Visit: Yes Onset Date: 12/14/19 Qualifiers: Heart failure type: unspecified Heart failure chronicity: acute Qualified Code(s): I50.9 - Heart failure, unspecified Annotation/Comment:: As above. He patient is on an JAMES inhibitor. Echocardiogram on an outpatient basis recommended as above. (7) Alcohol abuse SNOMED Code(s): 63201689 Code(s): F10.10 - ALCOHOL ABUSE, UNCOMPLICATED Status: Chronic Priority: Medium Current Visit: Yes Annotation/Comment:: Chronic problem. Overall stable anxiety depression disorder with no DTs to this point. CIWA scoring started on admit. (8) DVT (deep venous thrombosis) SNOMED Code(s): 226850120 Code(s): I82.409 - ACUTE EMBOLISM AND THOMBOS UNSP DEEP VN UNSP LOWER EXTREMITY Status: Chronic Priority: High Current Visit: Yes Qualifiers: Affected thrombotic vein of extremity: popliteal Laterality: right Annotation/Comment:: History of recurrent DVTs with subtherapeutic INR. Loading regimen on 08/22/2020. Medication compliance once again encouraged, although he denies recent medication noncompliance despite alcohol dependency as above/below. Venous Doppler studies and CT of the chest to be conducted on 08/22 as above. No direct evidence of DVT or PE. (9) Hypertension SNOMED Code(s): 04068268 Code(s): I10 - ESSENTIAL (PRIMARY) HYPERTENSION Status: Chronic Priority: Medium Current Visit: Yes Qualifiers: Hypertension type: essential hypertension Qualified Code(s): I10 - Essential (primary) hypertension Annotation/Comment:: Intermittent elevation during this hospitalization. Continue to observe closely by his regular providers. (10) Hypothyroidism (acquired) SNOMED Code(s): 694184695 Code(s): E03.9 - HYPOTHYROIDISM, UNSPECIFIED Status: Chronic Priority: Medium Current Visit: Yes Annotation/Comment:: TSH ordered on 08/22/2020 and was once again extremely elevated. Synthroid therapy reinitiated during this hospitalization with repeat TSH recommended in 4 weeks. Note history of medication noncompliance. (11) Metastatic primary lung cancer SNOMED Code(s): 00616483, 031540866 Code(s): C34.90 - MALIGNANT NEOPLASM OF UNSP PART OF UNSP BRONCHUS OR LUNG Status: Chronic Priority: Medium Current Visit: Yes Qualifiers: Laterality: left Qualified Code(s): C34.92 - Malignant neoplasm of unspecified part of left bronchus or lung Annotation/Comment:: Patient has stopped experimental chemotherapy in March 2019 by his history. He still wishes to be a full code, however. Prognosis guarded secondary to reoccurrence, metastatic disease, etc. as per emergency room note/mention H&P. (12) Osteoarthritis SNOMED Code(s): 687657247 Code(s): M19.90 - UNSPECIFIED OSTEOARTHRITIS, UNSPECIFIED SITE Status: Chr onic Priority: Medium Current Visit: Yes Qualifiers: Osteoarthritis location: multiple joints Osteoarthritis type: primary Qualified Code(s): M89.49 - Other hypertrophic osteoarthropathy, multiple sites Annotation/Comment:: Note additional history of rheumatoid arthritis. Stable by patient history with no evidence of significant injury from recent syncopal episode/fall. Note history of disability secondary to chronic low back pain. (13) Peptic reflux disease SNOMED Code(s): 677621673 Code(s): K21.9 - GASTRO-ESOPHAGEAL REFLUX DISEASE WITHOUT ESOPHAGITIS Status: Chronic Priority: Medium Current Visit: No Annotation/Comment:: Nonsymptomatic at this time. High-dose IV Pepcid given as GI prophylaxis. (14) Tobacco abuse counseling SNOMED Code(s): 399410541, 333845528, [id number] Code(s): Z71.6 - TOBACCO ABUSE COUNSELING Status: Chronic Priority: Medium Current Visit: Yes Annotation/Comment:: Tobacco cessation strongly encouraged especially in light of his lung cancer, etc. with tobacco cessation information once again to be provided at time of discharge. He did not want to have a nicotine patch during this hospitalization. (15) Mixed anxiety depressive disorder SNOMED Code(s): 045556773 Code(s): F41.8 - OTHER SPECIFIED ANXIETY DISORDERS Status: Chronic Priority: Medium Current Visit: Yes Annotation/Comment:: Note EtOH abuse, etc. Continue to observe closely by his regular providers. - Problem List Review Problem List Initiated/Reviewed/Updated: Yes - My Orders Last 24 Hours: My Active Orders 08/22/20 05:11 D-DIMER QUANTITATIVE [COAG] Stat PRO B-TYPE NATRIUR PEPT,BNPPRO [CHEM] Routine TROPONIN I [CHEM] Routine 08/22/20 09:34 EKG Documentation Completion [RC] ASDIRECTED 08/23/20 05:11 EKG Documentation Completion [RC] ASDIRECTED AMYLASE [CHEM] Routine CBC WITH AUTO DIFF [HEME] Routine COMPREHENSIVE METABOLIC PN,CMP [CHEM] Routine INR,PT,PROTHROMBIN TIME [COAG] Routine LIPASE [CHEM] Routine TROPONIN I [CHEM] Routine EKG 12 Lead [EK] Routine - Assessment Assessment:: As above - Plan Plan:: As above. Extensive precautions were given to the patient, who is in agreement with the treatment plan. The patient's condition is stable enough for observation status and general supervision. Probable discharge to home tomorrow as above.
[2020-08-22] MEDS ORDERED: Iopamidol 755 Mg/ML 100 ML Bottle IVPUSH STA (10:17)
[2020-08-22] MEDS ORDERED: Warfarin 5 MG Tab PO ONE (10:30)
[2020-08-22] MEDS: Famotidine 20 MG/2 ML SDV IVPUSH SCH ×2 (10:39→23:06)
[2020-08-22] MEDS ORDERED: Thiamine 100 MG Tab PO SCH (20:00)
[2020-08-23 07:01] VITALS: BP 162/98; PULSE 76
[2020-08-23] MEDS: Sodium Chloride 1 GM Tab PO SCH (07:09)
[2020-08-23] MEDS: Lisinopril 10 MG Tab PO SCH (07:09)
[2020-08-23] MEDS: Sodium Chloride 0.9% 10 ML Syringe FLUSH PRN ×4 (07:10→11:02)
[2020-08-23] MEDS: Ondansetron 4 MG Tab.DIS PO PRN (07:10)
[2020-08-23] MEDS: Levothyroxine 150 MCG Tab PO SCH (07:10)
[2020-08-23 09:21] LABS: CHLORIDE,CL 96 mmol/L (98-107); SODIUM,NA 133 mmol/L (136-145)
--- NOTE | 2020-08-23 10:09 | PCM.DCSUM1 ---
Discharge Summary - Hospital Course HPI Initial Comments: See emergency room note/mention H&P Brief History: See emergency room note/mention H&P Diagnosis: Stroke: No Modified [place] Scale: No Symptoms at All Modified [place] Scale Score: 0 - Discharge Data Discharge Date: 08/23/20 Discharge Disposition: Home, Self-Care 01 Condition: Fair - Referral to Home Health Primary Care Physician: PCP None - Discharge Diagnosis/Problem(s) (1) Syncope SNOMED Code(s): 950898422 ICD Code: R55 - SYNCOPE AND COLLAPSE Status: Acute Priority: High Cu rrent Visit: Yes Onset Date: 08/21/20 Problem Details: Possible syncopal episode as above, however note positive alcohol level and history of alcohol abuse. Negative work-up for acute AK. Echocardiogram on an outpatient basis. Note normal CT scan of the head in the emergency room. D-dimer elevation as below with subtherapeutic INR, history of recurrent DVTs, and current lung cancer. Venous Doppler studies of the lower extremities on 08/22/2020 showed relatively stable right popliteal vein DVT although some possible mild acute findings by preliminary verbal report from the apprentice technician. CTA of the chest on 08/22/2020 showed no evidence of PE with incidental findings of stable previous pulmonary changes from his lung cancer and moderate COPD. Qualifiers: Encounter type: initial encounter (2) Hyponatremia SNOMED Code(s): 60720105 ICD Code: E87.1 - HYPO-OSMOLALITY AND HYPONATREMIA Status: Acute Priority: High Current Visit: Yes Problem Details: Sodium level stable at 130 both on 08/22 and 08/23/2020. Sodium level 127 in the ER prior to admission and improved with IV fluids. Patient has been noncompliant with his oral sodium chloride supplementation with this reinitiated during this hospitalization. He does tolerate this medication better if he takes Zofran prior to intake. Medication compliance was strongly encouraged. Note history of chronic hyponatremia in the past. He has been more unsteady and then passed out tonight with possible true syncopal episode as above. Note elevated alcohol level prior to admission, which did normalize on 08/22/2020. Some BNP elevation with mild CHF as a as contributing factor to his chronic hyponatremia. Initiated fluid restricted diet on 08/22. Close follow-up by regular providers. (3) COPD (chronic obstructive pulmonary disease) SNOMED Code(s): 37960336 ICD Code: J44.9 - CHRONIC OBSTRUCTIVE PULMONARY DISEASE, UNSPECIFIED Status: Chronic Priority: Medium Current Visit: Yes Problem Details: No recent fever or bronchitic type symptoms with stable chronic mostly nonproductive cough. Continue current medical therapy. Tobacco cessation advisable. Qualifiers: COPD type: emphysema Emphysema type: panlobular Qualified Code(s): J43.1 - Panlobular emphysema (4) First degree AV block SNOMED Code(s): 363869645 ICD Code: I44.0 - ATRIOVENTRICULAR BLOCK, FIRST DEGREE Status: Acute P riority: Medium Current Visit: Yes Onset Date: 08/21/20 Problem Details: Resolved on 08/22/2020. Observe for now. Note history of PVCs, which have been nonproblematic and nonsymptomatic to this point. (5) Anemia SNOMED Code(s): 001025837 ICD Code: D64.9 - ANEMIA, UNSPECIFIED Status: Chronic Priority: Medium Current Visit: Yes Problem Details: Note history of alcohol abuse and lung cancer. TIBC panel showed some iron deficiency, although his ferritin level was somewhat increased. In addition note folic acid deficiency. Oral thiamine therapy was initiated on 08/22/2020. Close follow-up by regular provider with recommended repeat TIBC panel, ferritin level, and folic acid level in about 1 month. No evidence of acute GI bleed. Qualifiers: Anemia type: other cause Other causes of anemia: other cause, not classified Qualified Code(s): D64.89 - Other specified anemias (6) CHF (congestive heart failure) SNOMED Code(s): 41107949 ICD Code: I50.9 - HEART FAILURE, UNSPECIFIED Status: Acute Priority: High Current Visit: Yes Onset Date: 12/14/19 Problem Details: As above. He patient is on an JAMES inhibitor. Echocardiogram on an outpatient basis recommended as above. Further cardiac work-up, including possible Cardiolite stress test, cardiology referral, etc. pending on his clinical course Qualifiers: Heart failure type: unspecified Heart failure chronicity: acute Qualified Code(s): I50.9 - Heart failure, unspecified (7) Alcohol abuse SNOMED Code(s): 23445043 ICD Code: F10.10 - ALCOHOL ABUSE, UNCOMPLICATED Status: Chronic Priority: Medium Current Visit: Yes Problem Details: Chronic problem. Overall stable anxiety depression disorder with no DTs to this point. CIWA scoring started on admit. (8) DVT (deep venous thrombosis) SNOMED Code(s): 578096869 ICD Code: I82.409 - ACUTE EMBOLISM AND THOMBOS UNSP DEEP VN UNSP LOWER EXTREMITY Status: Chronic Priority: High Current Visit: Yes Problem Details: History of recurrent DVTs with subtherapeutic INR during this hospitalization. Loading regimen on 08/22/2020 and 08/23/2020 prior to discharge. Medication compliance once again encouraged, although he denies recent medication noncompliance despite alcohol dependency as above. Close follow-up by regular provider as per discharge instructions Qualifiers: Affected thrombotic vein of extremity: popliteal Laterality: right (9) Hypertension SNOMED Code(s): 11477241 ICD Code: I10 - ESSENTIAL (PRIMARY) HYPERTENSION Status: Chronic Priority: Medium Current Visit: Yes Problem Details: Intermittent elevation during this hospitalization, including in the morning prior to discharge. No direct evidence of beginning DTs. Continue to observe closely by his regular providers. Qualifiers: Hypertension type: essential hypertension Qualified Code(s): I10 - Essential (primary) hypertension (10) Hypothyroidism (acquired) SNOMED Code(s): 957145028 ICD Code: E03.9 - HYPOTHYROIDISM, UNSPECIFIED Status: Chronic Priority: Medium Current Visit: Yes Problem Details: TSH ordered on 08/22/2020 and was once again extremely elevated. Synthroid therapy reinitiated during this hospitalization with repeat TSH recommended in 4 weeks. Note history of medication noncompliance. (11) Metastatic primary lung cancer SNOMED Code(s): 00452558, 736576835 ICD Code: C34.90 - MALIGNANT NEOPLASM OF UNSP PART OF UNSP BRONCHUS OR LUNG Status: Chronic Priority: Medium Current Visit: Yes Problem Details: Patient has stopped experimental chemotherapy in March 2019 by his history. He still wishes to be a full code, however. Prognosis guarded secondary to reoccurrence, metastatic disease, etc. as per emergency room note/mention H&P. Qualifiers: Laterality: left Qualified Code(s): C34.92 - Malignant neoplasm of unspecified part of left bronchus or lung (12) Osteoarthritis SNOMED Code(s): 260212989 ICD Code: M19.90 - UNSPECIFIED OSTEOARTHRITIS, UNSPECIFIED SITE Status: Chronic Priority: Medium Current Visit: Yes Problem Details: Note additional history of rheumatoid arthritis. Stable by patient history with no evidence of significant injury from recent syncopal episode/fall. Note history of disability secondary to chronic low back pain. Qualifiers: Osteoarthritis location: multiple joints Osteoarthritis type: primary Dominic lified Code(s): M89.49 - Other hypertrophic osteoarthropathy, multiple sites (13) Peptic reflux disease SNOMED Code(s): 998565723 ICD Code: K21.9 - GASTRO-ESOPHAGEAL REFLUX DISEASE WITHOUT ESOPHAGITIS Status: Chronic Priority: Medium Current Visit: Yes Problem Details: Nonsymptomatic at this time. High-dose IV Pepcid given as GI prophylaxis. (14) Tobacco abuse counseling SNOMED Code(s): 105951060, 890167343, 779379065 ICD Code: Z71.6 - TOBACCO ABUSE COUNSELING Status: Chronic Priority: Medium Current Visit: Yes Problem Details: Tobacco cessation strongly encouraged especially in light of his lung cancer, etc. with tobacco cessation information once again to be provided at time of discharge. He did not want to have a nicotine patch during this hospitalization. (15) Mixed anxiety depressive disorder SNOMED Code(s): 701785911 ICD Code: F41.8 - OTHER SPECIFIED ANXIETY DISORDERS Status: Chronic Priority: Medium Current Visit: Yes Problem Details: Note EtOH abuse, etc. Continue to observe closely by his regular providers. - Patient Summary/Data Operative Procedure(s) Performed: None Complications: None Consults: None Labs Pending at D/C: Final report of venous Doppler studies of the lower extremities on 08/22/2020. Recommended Follow-up Testing/Procedures: As per discharge instructions Planned Operative Procedure(s) after DC: None Hospital Course: Patient was placed in observation status on telemetry with negative work-up for acute AK. No evidence of DTs, neurological deficits, or recurrent near syncope/syncopal episodes during this hospitalization. Note subtherapeutic INR as above. Close follow-up by regular providers. - Patient Instructions Diet: Fluid Restriction Diet, Other: Heart healthy, diverticulosis Fluid Restriction: 2000 mL Activity: As Tolerated (Strict fall and injury precautions) Driving: May Drive Today Showering/Bathing: May Shower Notify Provider of: Fever, Increased Pain, Nausea and/or Vomiting Other/Special Instructions: 1. Followup with your regular provider in 7 days as directed for reevaluation and recommended repeat CBC, comprehensive metabolic panel, troponin I, BNP, D-dimer, TSH and INR/PT. Bring these discharge instructions with you to that visit. 2. This facility will call you later for scheduling an echocardiogram on an outpatient basis secondary to your passing out episode. Further heart work-up including Cardiolite stress test depending on your symptoms at follow-up and these test results. 3. Stop all tobacco use LETY as directed/per provided information and consider contacting [facility], etc.. 4. Stop all alcohol use LETY. 5. Your Coumadin/warfarin should be started tomorrow afternoon rather than in the a.m. secondary to medications given to you prior to discharge today. 6. TSH, ferritin level, folic acid level, and TIBC panel should be conducted in about 1 month by your regular provider. 7. Strict compliance with your medical therapy at all times as discussed. 8. You may take your Zofran ODT prior to taking your salt pills, if this helps tolerance with this medication. 9. Immediately after this visit verify that your cellular telephone's voicemail has been activated and is empty. Also verify that your home telephone's answering machine is operating properly and has space to receive messages. Note that it is sometimes necessary for us to be able to contact you at a later date to discuss your medical care. 10. Please remember that we are ALWAYS here for you and want to answer any questions you may have. Feel free to call the hospital any time and we call you back LETY. - Discharge Plan *PRESCRIPTION DRUG MONITORING PROGRAM REVIEWED*: Not Applicable *COPY OF PRESCRIPTION DRUG MONITORING REPORT IN PATIENT ARPAN: Not Applicable Prescriptions/Med Rec: Ferrous Sulfate 325 mg PO BEDTIME #30 tablet Folic Acid 1 mg PO BEDTIME #60 tab Sodium Chloride 1 gm PO BID #60 tablet Thiamine [Vitamin B-1] 100 mg PO BEDTIME #30 tablet Ondansetron [Zofran ODT] 4 mg PO Q4H PRN #30 tab.dis PRN Reason: Nausea/Vomiting Home Medications: Home Meds Albuterol [Proventil HFA] 2 puff INH Q4H PRN #1 inhaler 09/20/14 [Rx] lisinopriL [Lisinopril] 1 tab PO DAILY 12/14/19 [History] Levothyroxine 150 mcg PO ACBREAKFAST #30 tablet 12/17/19 [Rx] Ferrous Sulfate 325 mg PO BEDTIME #30 tablet 08/23/20 [Rx] Folic Acid 1 mg PO BEDTIME #60 tab 08/23/20 [Rx] Ondansetron [Zofran ODT] 4 mg PO Q4H PRN #30 tab.dis 08/23/20 [Rx] Sodium Chloride 1 gm PO BID #60 tablet 08/23/20 [Rx] Thiamine [Vitamin B-1] 100 mg PO BEDTIME #30 tablet 08/23/20 [Rx] Warfarin [Coumadin] 5 mg PO QPM tablet 08/23/20 [Rx] Oxygen Therapy Mode: Room Air Patient Handouts: Near-Syncope, [id number], Health Risks of Smoking, Steps to Quit Smoking, [id number] Forms: ED Department Discharge Referrals: PCP,None [Primary Care Provider] - - Discharge Summary/Plan Comment DC Time >30 min.: Yes (Coordination of care ) Discharge Summary/Plan Comment: As above. Extensive precautions were given to the patient, who is in agreement with the treatment plan. See Patient Instructions for further treatment and plan. - General Info Date of Service: 08/23/20 Admission Dx/Problem (Free Text: 1. Fall with near syncope/syncope 2. Hyponatremia 3. Alcohol abuse 4. COPD Functional Status: Reports: Pain Controlled, Tolerating Diet, Ambulating, Urinating, Incentive Spirometry. Denies: New Symptoms Numeric/FACES Score: 0 - Review of Systems General: Reports: Weakness (Stable generalized). Denies: Fever, Fatigue, Malaise, Chills, Night Sweats, Appetite (Good) HEENT: Reports: Glasses. Denies: Dysphasia, Ear Pain, Eye Pain, Headaches, Post Nasal Drip, Sinus Congestion, Sore Throat, Rhinitis, Visual Changes Pulmonary: Reports: No Symptoms. Denies: Shortness of Breath, Pleuritic Chest Pain, Cough, Sputum, Hemoptysis, Wheezing Cardiovascular: Reports: No Symptoms. Denies: Chest Pain, Palpitations, Dyspnea on Exertion, Orthopnea, Edema, Lightheadedness Gastrointestinal: Reports: No Symptoms, Other (Normal bowel movement yesterday). Denies: Abdominal Pain, Constipation, Decreased Appetite, Diarrhea, Difficulty Swallowing, Flatus, Hematochezia, Melena, Nausea, Vomiting Genitourinary: Reports: No Symptoms. Denies: Dysuria, Frequency, Burning, Incontinence, Hematuria, Retention Musculoskeletal: Reports: No Symptoms. Denies: Neck Pain, Shoulder Pain, Back Pain, Leg Pain Skin: Reports: Bruising (Stable on arms bilaterally). Denies: Jaundice, Diaphoresis Neurological: Reports: Weakness (Stable generalized). Denies: Confusion, Dizziness, Headache, Numbness, Paresthesia, Seizure, Tingling, Difficulty Walking Psychiatric: Reports: No Symptoms, Other (No DTs). Denies: Confusion, Depression, Anxiety, Agitation, Cravings, Hallucinations - Patient Data Vitals - Most Recent: Last Vital Signs Temp 36.6 C 08/23/20 06:00 Pulse 76 08/23/20 06:00 Resp 18 08/23/20 06:00 BP 162/98 H 08/23/20 07:09 Pulse Ox 95 08/23/20 06:00 Vital Signs - 24 hr 08/22/20 08/22/20 08/23/20 11:52 19:14 00:00 Temperature [ 37.1 C 37.1 C 36.7 C Temporal] Pulse, 79 76 71 Peripheral [ Pulse Oximetry] Respiratory 14 22 H 22 H Rate Blood Pressure Blood Pressure 147/95 H 151/90 H 152/105 H [Right Upper Arm] O2 Sat by Pulse 96 94 L 91 L Oximetry 08/23/20 08/23/20 06:00 07:09 Temperature [ 36.6 C Temporal] Pulse, 76 Peripheral [ Pulse Oximetry] Respiratory 18 Rate Blood Pressure 162/98 H Blood Pressure 162/98 H [Right Upper Arm] O2 Sat by Pulse 95 Oximetry Weight - Most Recent: 70.76 kg I&O - Last 24 hours: Intake & Output 08/22/20 08/23/20 08/23/20 22:59 06:59 14:59 Intake Total 760 1220 480 Output Total 150 Balance 610 1220 480 Imaging Impressions - Last 24 hrs: outreach counselor shows normal heart rhythm in the 80s with no ectopy or arrhythmia. Preliminary verbal report from the apprentice technician on 08/22/2020 shows relatively stable right popliteal vein DVT with possible mild additional acute findings. CTA of the chest on 08/22/2020 shows no evidence of PE with incidental findings of COPD, Port-A-Cath, and stable pulmonary findings from previous left-sided lung cancer. CT of the head without contrast on 08/21/2020 showed no acute findings with possible left maxillary sinusitis. Additional cerebral microvascular disease noted. Lab Results - Last 24 hrs: Laboratory Results - last 24 hr 08/22/20 08/22/20 08/23/20 Range/Units 07:09 07:09 07:05 WBC (4.0-10.2) K/uL RBC (4.33-5.41) M/uL Hgb (13.1-16.8) g/dL Hct (39.0-49.0) % MCV (84.0-98.0) fL MCH (28.2-33.3) pg MCHC (31.7-36.0) g/dL RDW (11.2-14.1) % Plt Count (150-350) K/uL Neut % (Auto) (45.0-80.0) % Lymph % (Auto) (10.0-50.0) % [place] % (Auto) (2.0-14.0) % Eos % (Auto) (0.0-5.0) % Baso % (Auto) (0.0-2.0) % Neut # (Auto) (1.40-7.00) K/uL Lymph # (Auto) (0.50-3.50) K/uL [place] # (Auto) (0.00-1.00) K/uL Eos # (Auto) (0.00-0.50) K/uL Baso # (Auto) (0.00-0.20) K/uL PT (9.5-12.0) SEC INR D-Dimer, Quantitative 1570 H (0-400) ng/mL Sodium 133 L (136-145) mmol/L Potassium 4.3 (3.5-5.1) mmol/L Chloride 96 L (98-107) mmol/L Carbon Dioxide 32.2 H (21.0-32.0) mmol/L BUN 7 (7-18) mg/dL Creatinine 0.64 (0.51-1.17) mg/dL Est Cr Clr Drug Dosing 96.09 mL/min Estimated GFR (MDRD) > 60 mL/min Glucose 99 (70-99) mg/dL Calcium 8.9 (8.5-10.1) mg/dL Iron (50-175) ug/dL TIBC (250-450) ug/dL % Saturation Ferritin (8-388) ng/mL Total Bilirubin 1.0 (0.2-1.0) mg/dL AST 24 (15-37) U/L ALT 26 (12-78) U/L Alkaline Phosphatase 66 (46-116) IU/L Troponin I 0.000 0.000 (0.000-0.056) ng/mL NT-Pro-B Natriuret Pep 431 H (0-125) pg/mL Total Protein 6.9 (6.4-8.2) g/dL Albumin 3.6 (3.4-5.0) g/dL Amylase 38 (25-115) U/L Lipase 63 L (73-393) U/L Vitamin B12 457 (193-986) pg/mL Folate 7.6 L (8.6-58.9) ng/mL TSH, Ultra Sensitive 14.057 H (0.358-3.740) mIU/mL 08/23/20 08/23/20 08/23/20 Range/Units 07:05 07:05 07:05 WBC 7.7 (4.0-10.2) K/uL RBC 4.03 L (4.33-5.41) M/uL Hgb 13.5 (13.1-16.8) g/dL Hct 38.9 L (39.0-49.0) % MCV 96.5 (84.0-98.0) fL MCH 33.5 H (28.2-33.3) pg MCHC 34.7 (31.7-36.0) g/dL RDW 14.0 (11.2-14.1) % Plt Count 156 (150-350) K/uL Neut % (Auto) 85.0 H (45.0-80.0) % Lymph % (Auto) 5.2 L (10.0-50.0) % Wayne % (Auto) 6.3 (2.0-14.0) % Eos % (Auto) 3.4 (0.0-5.0) % Baso % (Auto) 0.1 (0.0-2.0) % Neut # (Auto) 6.56 (1.40-7.00) K/uL Lymph # (Auto) 0.40 L (0.50-3.50) K/uL Wayne # (Auto) 0.49 (0.00-1.00) K/uL Eos # (Auto) 0.26 (0.00-0.50) K/uL Baso # (Auto) 0.01 (0.00-0.20) K/uL PT 17.1 H (9.5-12.0) SEC INR 1.7 D-Dimer, Quantitative (0-400) ng/mL Sodium (136-145) mmol/L Potassium (3.5-5.1) mmol/L Chloride (98-107) mmol/L Carbon Dioxide (21.0-32.0) mmol/L BUN (7-18) mg/dL Creatinine (0.51-1.17) mg/dL Est Cr Clr Drug Dosing mL/min Estimated GFR (MDRD) mL/min Glucose (70-99) mg/dL Calcium (8.5-10.1) mg/dL Iron 88 (50-175) ug/dL TIBC 227 L (250-450) ug/dL % Saturation 38.42073 Ferritin 407 H (8-388) ng/mL Total Bilirubin (0.2-1.0) mg/dL AST (15-37) U/L ALT (12-78) U/L Alkaline Phosphatase (46-116) IU/L Troponin I (0.000-0.056) ng/mL NT-Pro-B Natriuret Pep (0-125) pg/mL Total Protein (6.4-8.2) g/dL Albumin (3.4-5.0) g/dL Amylase (25-115) U/L Lipase (73-393) U/L Vitamin B12 (193-986) pg/mL Folate (8.6-58.9) ng/mL TSH, Ultra Sensitive (0.358-3.740) mIU/mL Laboratory Tests 08/21/20 08/21/20 08/21/20 Range/Units 20:17 20:17 20:17 WBC 6.1 (4.0-10.2) K/uL RBC 3.70 L (4.33-5.41) M/uL Hgb 12.4 L (13.1-16.8) g/dL Hct 35.2 L (39.0-49.0) % MCV 95.1 (84.0-98.0) fL MCH 33.5 H (28.2-33.3) pg MCHC 35.2 (31.7-36.0) g/dL RDW 13.9 (11.2-14.1) % Plt Count 165 (150-350) K/uL Neut % (Auto) 78.8 (45.0-80.0) % Lymph % (Auto) 6.4 L (10.0-50.0) % Wayne % (Auto) 7.9 (2.0-14.0) % Eos % (Auto) 6.6 H (0.0-5.0) % Baso % (Auto) 0.3 (0.0-2.0) % Neut # (Auto) 4.81 (1.40-7.00) K/uL Lymph # (Auto) 0.39 L (0.50-3.50) K/uL Wayne # (Auto) 0.48 (0.00-1.00) K/uL Eos # (Auto) 0.40 (0.00-0.50) K/uL Baso # (Auto) 0.02 (0.00-0.20) K/uL PT 13.8 H (9.5-12.0) SEC INR 1.4 APTT 29.5 (24.5-32.8) SEC D-Dimer, Quantitative (0-400) ng/mL Sodium 127 L (136-145) mmol/L Potassium 3.9 (3.5-5.1) mmol/L Chloride 91 L (98-107) mmol/L Carbon Dioxide 26.6 (21.0-32.0) mmol/L BUN 6 L (7-18) mg/dL Creatinine 0.60 (0.51-1.17) mg/dL Est Cr Clr Drug Dosing TNP Estimated GFR (MDRD) > 60 mL/min Glucose 83 (70-99) mg/dL Calcium 8.2 L (8.5-10.1) mg/dL Magnesium 2.0 (1.8-2.4) mg/dL Iron (50-175) ug/dL TIBC (250-450) ug/dL % Saturation Ferritin (8-388) ng/mL Total Bilirubin 1.0 (0.2-1.0) mg/dL AST 27 (15-37) U/L ALT 25 (12-78) U/L Alkaline Phosphatase 64 (46-116) IU/L Troponin I 0.001 (0.000-0.056) ng/mL NT-Pro-B Natriuret Pep (0-125) pg/mL Total Protein 6.5 (6.4-8.2) g/dL Albumin 3.4 (3.4-5.0) g/dL Amylase (25-115) U/L Lipase (73-393) U/L Vitamin B12 (193-986) pg/mL Folate (8.6-58.9) ng/mL TSH, Ultra Sensitive (0.358-3.740) mIU/mL Specimen Type Urine Color Urine Appearance Urine pH (5.0-9.0) Ur Specific [place] (1.005-1.030) Urine Protein (NEGATIVE) mg/dL Urine Glucose (UA) (NEGATIVE) mg/dL Urine Ketones (NEGATIVE) mg/dL Urine Occult Blood (NEGATIVE) Urine Nitrite (NEGATIVE) Urine Bilirubin (NEGATIVE) Urine Urobilinogen (0.2-1.0) E.U./dL Ur Leukocyte Esterase (NEGATIVE) Ethyl Alcohol 0.130 H (0.000-0.080) g/dL 08/21/20 08/22/20 08/22/20 Range/Units 21:25 07:09 07:09 WBC 5.7 (4.0-10.2) K/uL RBC 4.13 L (4.33-5.41) M/uL Hgb 13.6 (13.1-16.8) g/dL Hct 39.7 (39.0-49.0) % MCV 96.1 (84.0-98.0) fL MCH 32.9 (28.2-33.3) pg MCHC 34.3 (31.7-36.0) g/dL RDW 14.1 (11.2-14.1) % Plt Count 157 (150-350) K/uL Neut % (Auto) 78.6 (45.0-80.0) % Lymph % (Auto) 6.7 L (10.0-50.0) % Wayne % (Auto) 8.1 (2.0-14.0) % Eos % (Auto) 6.1 H (0.0-5.0) % Baso % (Auto) 0.5 (0.0-2.0) % Neut # (Auto) 4.48 (1.40-7.00) K/uL Lymph # (Auto) 0.38 L (0.50-3.50) K/uL Wayne # (Auto) 0.46 (0.00-1.00) K/uL Eos # (Auto) 0.35 (0.00-0.50) K/uL Baso # (Auto) 0.03 (0.00-0.20) K/uL PT (9.5-12.0) SEC INR APTT (24.5-32.8) SEC D-Dimer, Quantitative (0-400) ng/mL Sodium 133 L (136-145) mmol/L Potassium 4.5 (3.5-5.1) mmol/L Chloride 97 L (98-107) mmol/L Carbon Dioxide 27.9 (21.0-32.0) mmol/L BUN 6 L (7-18) mg/dL Creatinine 0.59 (0.51-1.17) mg/dL Est Cr Clr Drug Dosing 104.24 Estimated GFR (MDRD) > 60 mL/min Glucose 81 (70-99) mg/dL Calcium 8.3 L (8.5-10.1) mg/dL Magnesium 2.1 (1.8-2.4) mg/dL Iron (50-175) ug/dL TIBC (250-450) ug/dL % Saturation Ferritin (8-388) ng/mL Total Bilirubin (0.2-1.0) mg/dL AST (15-37) U/L ALT (12-78) U/L Alkaline Phosphatase (46-116) IU/L Troponin I (0.000-0.056) ng/mL NT-Pro-B Natriuret Pep (0-125) pg/mL Total Protein (6.4-8.2) g/dL Albumin (3.4-5.0) g/dL Amylase (25-115) U/L Lipase (73-393) U/L Vitamin B12 (193-986) pg/mL Folate (8.6-58.9) ng/mL TSH, Ultra Sensitive (0.358-3.740) mIU/mL Specimen Type Urincc Urine Color Yellow Urine Appearance Clear Urine pH 5.5 (5.0-9.0) Ur Specific [place] <= 1.005 (1.005-1.030) Urine Protein Negative (NEGATIVE) mg/dL Urine Glucose (UA) Negative (NEGATIVE) mg/dL Urine Ketones Negative (NEGATIVE) mg/dL Urine Occult Blood Negative (NEGATIVE) Urine Nitrite Negative (NEGATIVE) Urine Bilirubin Negative (NEGATIVE) Urine Urobilinogen 0.2 (0.2-1.0) E.U./dL Ur Leukocyte Esterase Negative (NEGATIVE) Ethyl Alcohol 0.001 (0.000-0.080) g/dL 08/22/20 08/22/20 08/23/20 Range/Units 07:09 07:09 07:05 WBC (4.0-10.2) K/uL RBC (4.33-5.41) M/uL Hgb (13.1-16.8) g/dL Hct (39.0-49.0) % MCV (84.0-98.0) fL MCH (28.2-33.3) pg MCHC (31.7-36.0) g/dL RDW (11.2-14.1) % Plt Count (150-350) K/uL Neut % (Auto) (45.0-80.0) % Lymph % (Auto) (10.0-50.0) % Wayne % (Auto) (2.0-14.0) % Eos % (Auto) (0.0-5.0) % Baso % (Auto) (0.0-2.0) % Neut # (Auto) (1.40-7.00) K/uL Lymph # (Auto) (0.50-3.50) K/uL Wayne # (Auto) (0.00-1.00) K/uL Eos # (Auto) (0.00-0.50) K/uL Baso # (Auto) (0.00-0.20) K/uL PT (9.5-12.0) SEC INR APTT (24.5-32.8) SEC D-Dimer, Quantitative 1570 H (0-400) ng/mL Sodium 133 L (136-145) mmol/L Potassium 4.3 (3.5-5.1) mmol/L Chloride 96 L (98-107) mmol/L Carbon Dioxide 32.2 H (21.0-32.0) mmol/L BUN 7 (7-18) mg/dL Creatinine 0.64 (0.51-1.17) mg/dL Est Cr Clr Drug Dosing 96.09 Estimated GFR (MDRD) > 60 mL/min Glucose 99 (70-99) mg/dL Calcium 8.9 (8.5-10.1) mg/dL Magnesium (1.8-2.4) mg/dL Iron (50-175) ug/dL TIBC (250-450) ug/dL % Saturation Ferritin (8-388) ng/mL Total Bilirubin 1.0 (0.2-1.0) mg/dL AST 24 (15-37) U/L ALT 26 (12-78) U/L Alkaline Phosphatase 66 (46-116) IU/L Troponin I 0.000 0.000 (0.000-0.056) ng/mL NT-Pro-B Natriuret Pep 431 H (0-125) pg/mL Total Protein 6.9 (6.4-8.2) g/dL Albumin 3.6 (3.4-5.0) g/dL Amylase 38 (25-115) U/L Lipase 63 L (73-393) U/L Vitamin B12 457 (193-986) pg/mL Folate 7.6 L (8.6-58.9) ng/mL TSH, Ultra Sensitive 14.057 H (0.358-3.740) mIU/mL Specimen Type Urine Color Urine Appearance Urine pH (5.0-9.0) Ur Specific [place] (1.005-1.030) Urine Protein (NEGATIVE) mg/dL Urine Glucose (UA) (NEGATIVE) mg/dL Urine Ketones (NEGATIVE) mg/dL Urine Occult Blood (NEGATIVE) Urine Nitrite (NEGATIVE) Urine Bilirubin (NEGATIVE) Urine Urobilinogen (0.2-1.0) E.U./dL Ur Leukocyte Esterase (NEGATIVE) Ethyl Alcohol (0.000-0.080) g/dL 08/23/20 08/23/20 08/23/20 Range/Units 07:05 07:05 07:05 WBC 7.7 (4.0-10.2) K/uL RBC 4.03 L (4.33-5.41) M/uL Hgb 13.5 (13.1-16.8) g/dL Hct 38.9 L (39.0-49.0) % MCV 96.5 (84.0-98.0) fL MCH 33.5 H (28.2-33.3) pg MCHC 34.7 (31.7-36.0) g/dL RDW 14.0 (11.2-14.1) % Plt Count 156 (150-350) K/uL Neut % (Auto) 85.0 H (45.0-80.0) % Lymph % (Auto) 5.2 L (10.0-50.0) % [place] % (Auto) 6.3 (2.0-14.0) % Eos % (Auto) 3.4 (0.0-5.0) % Baso % (Auto) 0.1 (0.0-2.0) % Neut # (Auto) 6.56 (1.40-7.00) K/uL Lymph # (Auto) 0.40 L (0.50-3.50) K/uL Wayne # (Auto) 0.49 (0.00-1.00) K/uL Eos # (Auto) 0.26 (0.00-0.50) K/uL Baso # (Auto) 0.01 (0.00-0.20) K/uL PT 17.1 H (9.5-12.0) SEC INR 1.7 APTT (24.5-32.8) SEC D-Dimer, Quantitative (0-400) ng/mL Sodium (136-145) mmol/L Potassium (3.5-5.1) mmol/L Chloride (98-107) mmol/L Carbon Dioxide (21.0-32.0) mmol/L BUN (7-18) mg/dL Creatinine (0.51-1.17) mg/dL Est Cr Clr Drug Dosing Estimated GFR (MDRD) mL/min Glucose (70-99) mg/dL Calcium (8.5-10.1) mg/dL Magnesium (1.8-2.4) mg/dL Iron 88 (50-175) ug/dL TIBC 227 L (250-450) ug/dL % Saturation 38.86003 Ferritin 407 H (8-388) ng/mL Total Bilirubin (0.2-1.0) mg/dL AST (15-37) U/L ALT (12-78) U/L Alkaline Phosphatase (46-116) IU/L Troponin I (0.000-0.056) ng/mL NT-Pro-B Natriuret Pep (0-125) pg/mL Total Protein (6.4-8.2) g/dL Albumin (3.4-5.0) g/dL Amylase (25-115) U/L Lipase (73-393) U/L Vitamin B12 (193-986) pg/mL Folate (8.6-58.9) ng/mL TSH, Ultra Sensitive (0.358-3.740) mIU/mL Specimen Type Urine Color Urine Appearance Urine pH (5.0-9.0) Ur Specific [place] (1.005-1.030) Urine Protein (NEGATIVE) mg/dL Urine Glucose (UA) (NEGATIVE) mg/dL Urine Ketones (NEGATIVE) mg/dL Urine Occult Blood (NEGATIVE) Urine Nitrite (NEGATIVE) Urine Bilirubin (NEGATIVE) Urine Urobilinogen (0.2-1.0) E.U./dL Ur Leukocyte Esterase (NEGATIVE) Ethyl Alcohol (0.000-0.080) g/dL TOÑO Results - Last 24 hrs: None Med Orders - Current: Current Medications Albuterol (Albuterol 6.7 Gm Inhaler) 0 gm INH Q4H PRN PRN Reason: Dyspnea Famotidine (Famotidine 20 Mg/2 Ml Sdv) 20 mg IVPUSH Q12H [facility] Last Admin: 08/22/20 23:06 Dose: 20 mg Documented by: Heparin Sodium (Porcine) (Heparin Sodium 100 Units/Ml 5 Ml Syringe) 500 units FLUSH ASDIRECTED PRN PRN Reason: Other Last Admin: 08/23/20 07:10 Dose: 500 units Documented by: Levothyroxine Sodium (Levothyroxine 150 Mcg Tab) 150 mcg PO ACBREAKFAST [facility] Last Admin: 08/23/20 07:10 Dose: 150 mcg Documented by: Lisinopril (Lisinopril 10 Mg Tab) 10 mg PO DAILY [facility] Last Admin: 08/23/20 07:09 Dose: 10 mg Documented by: Ondansetron HCl (Ondansetron 4 Mg Tab.Dis) 4 mg PO Q4H PRN PRN Reason: Nausea/Vomiting Last Admin: 08/23/20 07:10 Dose: 4 mg Documented by: Ondansetron HCl (Ondansetron 4 Mg/2 Ml Sdv) 4 mg IVPUSH Q4H PRN PRN Reason: Nausea/Vomiting Sodium Chloride (Sodium Chloride 0.9% 10 Ml Syringe) 10 ml FLUSH ASDIRECTED PRN PRN Reason: Keep Vein Open Last Admin: 08/23/20 07:16 Dose: 10 ml Documented by: Sodium Chloride (Sodium Chloride 0.9% 10 Ml Syringe) 10 ml FLUSH ASDIRECTED PRN PRN Reason: Keep Vein Open Sodium Chloride (Sodium Chloride 1 Gm Tab) 1 gm PO BID [facility] Last Admin: 08/23/20 07:09 Dose: 1 gm Documented by: Thiamine HCl (Thiamine 100 Mg Tab) 100 mg PO BEDTIME [facility] Last Admin: 08/22/20 19:14 Dose: 100 mg Documented by: Warfarin Sodium (Warfarin 5 Mg Tab) 5 mg PO QPM [facility] Warfarin Sodium (Warfarin 2 Mg Tab) 10 mg PO ONETIME ONE Stop: 08/23/20 10:06 Discontinued Medications Sodium Chloride (Normal Saline) 1,000 mls @ 999 mls/hr IV .BOLUS ONE Stop: 08/21/20 21:17 Last Admin: 08/21/20 23:04 Dose: 999 mls/hr Documented by: Iopamidol (Iopamidol 755 Mg/Ml 100 Ml Bottle) 100 ml IVPUSH ONETIME STA Stop: 08/22/20 10:18 Last Admin: 08/22/20 10:54 Dose: 100 ml Documented by: Warfarin Sodium (Warfarin 5 Mg Tab) 5 mg PO DAILY [facility] Last Admin: 08/22/20 07:21 Dose: 5 mg Documented by: Warfarin Sodium (Warfarin 5 Mg Tab) 5 mg PO ONETIME ONE Stop: 08/22/20 10:31 Last Admin: 08/22/20 10:39 Dose: 5 mg Documented by: - Exam Quality Assessment: Reports: DVT Prophylaxis (Coumadin). Denies: Supplemental Oxygen, Central Line/PICC, Urine Catheter, Skin Breakdown, Restraints General: Reports: Alert, Oriented, Cooperative, No Acute Distress HEENT: Reports: Pupils Equal, Pupils Reactive, EOMI, Mucous Membr. Moist/[place], Other (Patient is wearing glasses). Denies: Scleral Icterus Neck: Reports: Supple, Trachea Midline, No JVD, No Thyromegaly, +2 Carotid Pulse wo Bruit. Denies: Lymphadenopathy Lungs: Reports: Clear to Auscultation, Normal Respiratory Effort. Denies: Rhonchi, Rub, Wheezing Cardiovascular: Reports: Regular Rate, Regular Rhythm, No Murmurs. Denies: Gallops, Rubs GI/Abdominal Exam: Normal Bowel Sounds, Soft, Non-Tender, No Organomegaly, No Distention, No Abnormal Bruit, No Mass. No: Guarding (Male) Exam: Deferred Rectal (Males) Exam: Deferred Back Exam: Reports: Normal Inspection, Full Range of Motion. Denies: CVA Tenderness (L), CVA Tenderness (R), Muscle Spasm Extremities: Normal Range of Motion, Non-Tender, No Pedal Edema, Normal Capillary Refill, Other (Moderate ecchymosis on the forearms bilaterally without petechiae). No: Pedal Edema, Amelia's Sign Skin: Reports: Ecchymosis (As above) Neurological: Reports: No New Focal Deficit, Other (No clinical orthostasis or DTs) Psy/Mental Status: Reports: Alert, Anxious (Borderline), Depressed (Mild). Denies: Agitated, Hallucinations, Withdrawal Symptoms #1 Interpretation EKG Date: 08/23/20 Time: 09:36 Rhythm: NSR Rate (Beats/Min): 65 [place]: Normal (Left) P-Wave: Enlarged (Mild diffuse biphasic P waves) QRS: Normal (0.08 seconds representing repolarization changes) ST-T: Normal QT: Normal NE/PQ Interval: 0.18 seconds with poor R wave progression in the anterior leads and resolved pulmonary hypertension by EKG Comparison: Change From Previous EKG (As above since 08/22/2020) EKG Interpretation Comments: 1. No acute ischemic changes 2. Repolarization changes 3. Left atrial enlargement
[2020-08-23] MEDS ORDERED: Warfarin 5 MG Tab PO ONE (10:15)
[2020-08-23] MEDS: Famotidine 20 MG/2 ML SDV IVPUSH SCH (10:46)
[2020-08-23] MEDS ORDERED: Warfarin 5 MG Tab PO SCH (18:00)
== END 2020-08-23 11:25 | disposition home or self-care (01) ==
LOC: LL.ED 19:18 → LL.MS 21:50 → UNDOADMOB 21:50 → UNDODISOB 08-23 11:25
PROVIDERS: ADMIT Nurse Practitioner Family; ATTEND Nurse Practitioner Family
DX: R40.20 Unspecified coma (principal); R55 Syncope and collapse; F10.129 Alcohol abuse with intoxication, unspecified; E87.1 Hypo-osmolality and hyponatremia; J43.1 Panlobular emphysema; D64.89 Other specified anemias; I50.9 Heart failure, unspecified; F10.10 Alcohol abuse, uncomplicated; I82.431 Acute embolism and thrombosis of right popliteal vein; I11.0 Hypertensive heart disease with heart failure; E03.9 Hypothyroidism, unspecified; C34.92 Malignant neoplasm of unspecified part of left bronchus or lung; M89.49 Other hypertrophic osteoarthropathy, multiple sites; K21.9 Gastro-esophageal reflux disease without esophagitis; Z71.6 Tobacco abuse counseling; F41.8 Other specified anxiety disorders; Z79.01 Long term (current) use of anticoagulants; Z79.899 Other long term (current) drug therapy; Z79.890 Hormone replacement therapy; W19.XXXA Unspecified fall, initial encounter; Y90.6 Blood alcohol level of 120-199 mg/100 ml; I44.0 Atrioventricular block, first degree
CPT/HCPCS: 36415; 70450; 71275; 80048; 80053; 80307; 81003; 82150; 82607; 82728; 82746; 83540; 83550; 83690; 83735; 83880; 84443; 84484; 85025; 85379; 85610; 85730; 93005; 93970; 96374; 96376; 99233; 99239; 99285; A9270; G0378; J1642; J3490; J7030; Q9967; 99217; 99226

== ENCOUNTER 2020-10-27 15:37 | Emergency (ER) | payer MEDICARE, OTHER ==
[2020-10-27 16:59] LABS: CHLORIDE,CL 93 mmol/L (98-107); SODIUM,NA 131 mmol/L (136-145)
[2020-10-27 17:00] LABS: ANION GAP 12.4 meq/L (7-15)
[2020-10-27] MEDS ORDERED: Magnesium Oxide 400 MG Tab PO ONE (17:11)
[2020-10-27] MEDS ORDERED: predniSONE 20 MG Tab PO ONE (17:12)
[2020-10-27] MEDS ORDERED: Diazepam 5 MG Tab PO ONE (17:14)
[2020-10-27] MEDS ORDERED: Ketorolac 10 MG Tab PO ONE (17:14)
--- NOTE | 2020-10-27 17:27 | EDM.PDOC ---
ED HPI GENERAL MEDICAL PROBLEM - General Chief Complaint: Neck Problem Stated Complaint: neck pain Time Seen by Provider: 10/27/20 15:47 Source of Information: Reports: Patient History Limitations: Reports: No Limitations - History of Present Illness INITIAL COMMENTS - FREE TEXT/NARRATIVE: Patient comes in with severe bilateral neck pain/stiffness. Slowly developed several days ago, starting on one side. Now is equally bad on both sides. Points to SCM muscles bilaterally. No pain over cervical spine. Hard to look left or right. Denies any specific injury. History of radiation therapy to cancer in neck area remotely. Denies any signs of illness such as fever/chills/headache/viral illness symptoms/cough. No other acute changes. Has not had this problem in past. Neck Pain Score (Numeric/FACES): 8 - Related Data Allergies Allergy/AdvReac Type Severity Reaction Status Date / Time No Known Allergies Allergy Verified 10/27/20 16:10 Home Meds: Home Meds Albuterol [Proventil HFA] 2 puff INH Q4H PRN #1 inhaler 09/20/14 [Rx] lisinopriL [Lisinopril] 1 tab PO DAILY 12/14/19 [History] Levothyroxine 150 mcg PO ACBREAKFAST #30 tablet 12/17/19 [Rx] Ferrous Sulfate 325 mg PO BEDTIME #30 tablet 08/23/20 [Rx] Folic Acid 1 mg PO BEDTIME #60 tab 08/23/20 [Rx] Ondansetron [Zofran ODT] 4 mg PO Q4H PRN #30 tab.dis 08/23/20 [Rx] Sodium Chloride 1 gm PO BID #60 tablet 08/23/20 [Rx] Thiamine [Vitamin B-1] 100 mg PO BEDTIME #30 tablet 08/23/20 [Rx] Warfarin [Coumadin] 5 mg PO QPM tablet 08/23/20 [Rx] Magnesium Glycinate, Mag Oxide [Magnesium Glycinate] 120 mg PO DAILY #30 capsule 10/27/20 [Rx] diazePAM [Valium] 2 mg PO TID PRN #12 tab 10/27/20 [Rx] predniSONE [Prednisone] 20 mg PO DAILY #2 tablet 10/27/20 [Rx] Past Medical History HEENT History: Reports: Cataract, Hard of Hearing, Impaired Vision, Other (See Below) Other HEENT History: Bilateral presbycusis with no current hearing aid therapy. Patient does wear reading glasses. Cardiovascular History: Reports: Blood Clots/VTE/DVT, High Cholesterol, Hypertension Other Cardiovascular History: History of recurrent DVTs of the legs in the initially in the left leg and then in the right leg with current Coumadin therapy. Respiratory History: Reports: Bronchitis, Recurrent, COPD, Intubation, Previous, Pneumonia, Recurrent, Pulmonary Fibrosis, Other (See Below) Other Respiratory History: O2 dependent COPD usually nocturnal at 3.5 L/min. Metastatic lung cancer as below. Gastrointestinal History: Reports: Colon Polyp, GERD, Other (See Below) Other Gastrointestinal History: Esophageal cancer as below. Genitourinary History: Reports: BPH Musculoskeletal History: Reports: Arthritis, Back Pain, Chronic, Fracture, Neck Pain, Chronic, Osteoarthritis, RA, Other (See Below) Other Musculoskeletal History: Mid shaft right tibial and fibular fracture at about age 10 not requiring surgery. Left rotator cuff tear on 04/19/2017. Neurological History: Reports: Other (See Below) Other Neuro History: Right arm ulnar neuropathy. Psychiatric History: Reports: Addiction, Other (See Below) Other Psychiatric History: Alcohol and tobacco use as below. Endocrine/Metabolic History: Reports: Hypothyroidism, Obesity/BMI 30+, Other (See Below) Other Endocrine/Metabolic History: Previous obesity however not currently secondary to lung cancer, etc. Hematologic History: Reports: Other (See Below) Other Hematologic History: Polycythemia secondary to tobacco abuse. Immunologic History: Reports: Immunosuppression, Other (See Below) Other Immunologic History: Current lung with metastases. 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 Initial therapy completed on 06/06/2018 with patient discontinuing therapy on his own for recurrence in March 2019. New left upper lobe pulmonary nodules by CT scan on 09/26/2019. 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 Dermatologic History: Reports: None - Infectious Disease History Infectious Disease History: Reports: Chicken Pox, Rheumatic Fever - Past Surgical History Head Surgeries/Procedures: Reports: None HEENT Surgical History: Reports: Cataract Surgery, Eye Surgery, Oral Surgery, Other (See Below) Other HEENT Surgeries/Procedures: Laryngoscopies on 06/21/2018 and 01/18/2018. Bilateral cataract surgery at age 66. Complete teeth extraction with complete dentures uppers and lowers. Cardiovascular Surgical History: Reports: Other (See Below) Other Cardiovascular Surgeries/Procedures: Right-sided Port-A-Cath placement on 05/09/2018. Respiratory Surgical History: Reports: Lung Biopsies, Other (See Below) Other Respiratory Surgeries/Procedures: Left-sided lung biopsies secondary to lung cancer as above. Bronchoscopy is on 03/23/2018 and 10/12/2017. GI Surgical History: Reports: Appendectomy, Colonoscopy, EGD, Hernia, Abdominal, Polypectomy, Other (See Below) Other GI Surgeries/Procedures: Laparoscopic appendectomy and concomitant umbilical hernia repair in about 2009. EGD and colonoscopy on 09/20/2017. EGD on 02/19/2017. Male Surgical History: Reports: Circumcision, Other (See Below) Other Male Surgeries/Procedures: Circumcision as an infant. Endocrine Surgical History: Reports: None Neurological Surgical History: Reports: Lumbar Spine, Spinal Fusion, Other (See Below) Other Neurological Surgeries/Procedures: Spinal fusions in 1997, 2002, and 2003. Oncologic Surgical History: Reports: None Dermatological Surgical History: Reports: None - Past Imaging History Past Imaging History: Reports: CAT Scan (Multiple CTs of the chest with IV contrast with last evaluations on 09/26/2019 and 07/04/2019. Soft tissue of the neck CT on 09/03/2017.), MRI (MRI of the left shoulder on 04/19/2017.), PET (PET/CT of the skull and brain on 08/31/2018 and 03/02/2018 with similar evaluation however to the thigh on 10/04/2017.), PFT (10/07/2017), Swallow Study (09/03/2017), Ultrasound (Endobronchial ultrasound on 03/23/2018 and 10/12/2017.), Other (See Below) (EMG and nerve conduction studies on 07/14/2018.) Social & Family History - Family History HEENT: Reports: Macular Degeneration, Retinal Detachment, Other (See Below) Other HEENT Family History: Sister with macular degeneration. Brother with retinal detachment. Cardiac: Reports: Aneurysm, Other (See Below) Other Cardiac Family History: Mother with AAA. 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 ED EXAM, GENERAL - Physical Exam Exam: See Below Exam Limited By: No Limitations General Appearance: Alert, WD/WN, Other (uncomfortable) Eye Exam: Bilateral Eye: EOMI, PERRL Ears: Normal External Exam, Normal Canal, Hearing Grossly Normal Nose: No: Nasal Deformity, Nasal Swelling, Nasal Drainage Throat/Mouth: Normal Lips, Normal Voice, No Airway Compromise Head: Atraumatic, Normocephalic Neck: Tender Lateral (very tender/tight muscles noted bilateral SCM musculature. Palpation reproduces/exacerbates pain complaint. Able to lower chin toward chest/no meningeal signs. No cervical tenderness. ) Respiratory/Chest: No Respiratory Distress, Lungs Clear, Normal Breath Sounds, No Accessory Muscle Use, Chest Non-Tender Cardiovascular: Regular Rate, Rhythm, No Murmur GI/Abdominal: Soft, Non-Tender Back Exam: No: CVA Tenderness (L), CVA Tenderness (R), Muscle Spasm, Paraspinal Tenderness, Vertebral Tenderness Extremities: Non-Tender, Normal Capillary Refill Neurological: Alert, Oriented, Normal Cognition, Normal Gait, No Motor/Sensory Deficits Psychiatric: Normal Affect, Normal Mood Skin Exam: Warm, Dry, Intact, Normal Color Course - Orders/Labs/Meds Labs: Laboratory Tests 10/27/20 10/27/20 10/27/20 Range/Units 16:35 16:35 16:35 WBC 10.8 H (4.0-10.2) K/uL RBC 4.31 L (4.33-5.41) M/uL Hgb 14.7 (13.1-16.8) g/dL Hct 41.2 (39.0-49.0) % MCV 95.6 (84.0-98.0) fL MCH 34.1 H (28.2-33.3) pg MCHC 35.7 (31.7-36.0) g/dL RDW 13.5 (11.2-14.1) % Plt Count 150 (150-350) K/uL Neut % (Auto) 91.6 H (45.0-80.0) % Lymph % (Auto) 2.2 L (10.0-50.0) % [place] % (Auto) 5.5 (2.0-14.0) % Eos % (Auto) 0.4 (0.0-5.0) % Baso % (Auto) 0.3 (0.0-2.0) % Neut # (Auto) 9.85 H (1.40-7.00) K/uL Lymph # (Auto) 0.24 L (0.50-3.50) K/uL [place] # (Auto) 0.59 (0.00-1.00) K/uL Eos # (Auto) 0.04 (0.00-0.50) K/uL Baso # (Auto) 0.03 (0.00-0.20) K/uL PT 9.9 D (9.5-12.0) SEC INR 1.0 Sodium 131 L (136-145) mmol/L Potassium 4.0 (3.5-5.1) mmol/L Chloride 93 L (98-107) mmol/L Carbon Dioxide 29.6 (21.0-32.0) mmol/L Anion Gap 12.4 (7-15) meq/L BUN 5 L (7-18) mg/dL Creatinine 0.69 (0.51-1.17) mg/dL Est Cr Clr Drug Dosing 100.80 mL/min Estimated GFR (MDRD) > 60 mL/min Glucose 105 H (70-99) mg/dL Calcium 8.6 (8.5-10.1) mg/dL Magnesium 1.9 (1.8-2.4) mg/dL Total Bilirubin 2.0 H (0.2-1.0) mg/dL AST 22 (15-37) U/L ALT 19 (12-78) U/L Alkaline Phosphatase 84 (46-116) IU/L Total Protein 7.1 (6.4-8.2) g/dL Albumin 3.8 (3.4-5.0) g/dL Meds: Medications Discontinued Medications Generic Name Dose Route Start Last Admin Trade Name [place] PRN Reason Stop Dose Admin Diazepam 5 mg 10/27/20 17:14 10/27/20 17:21 Diazepam 5 Mg Tab PO 10/27/20 17:15 5 mg ONETIME ONE Administration Ketorolac Tromethamine 10 mg 10/27/20 17:14 10/27/20 17:21 Ketorolac 10 Mg Tab PO 10/27/20 17:15 10 mg ONETIME ONE Administration Magnesium Oxide 800 mg 10/27/20 17:11 10/27/20 17:21 Magnesium Oxide 400 Mg Tab PO 10/27/20 17:12 800 mg ONETIME ONE Administration Prednisone 40 mg 10/27/20 17:12 10/27/20 17:21 Prednisone 20 Mg Tab PO 10/27/20 17:13 40 mg ONETIME ONE Administration - Re-Assessments/Exams Free Text/Narrative Re-Assessment/Exam: 10/27/20 20:15 Significantly tight/tender SCM muscles noted on exam. CBC/chem unremarkable. No other acute reported changes or findings on exam. For now will treat with several days of Valium/prednisone and recommend Magnesium supplementation. If no significant improvement with a few days recommend patient check in with PCP. To continue to observe for any additional changes/new symptoms. Departure - Departure Time of Disposition: 17:18 Disposition: Home, Self-Care 01 Condition: Good Clinical Impression: Acute muscle stiffness of neck - Discharge Information *PRESCRIPTION DRUG MONITORING PROGRAM REVIEWED*: Not Applicable *COPY OF PRESCRIPTION DRUG MONITORING REPORT IN PATIENT ARPAN: Not Applicable Prescriptions: Magnesium Glycinate, Mag Oxide [Magnesium Glycinate] 120 mg PO DAILY #30 capsule predniSONE [Prednisone] 20 mg PO DAILY #2 tablet diazePAM [Valium] 2 mg PO TID PRN #12 tab PRN Reason: Spasms Instructions: Acute Torticollis, Adult Referrals: Yanira Antonio PA-C [Primary Care Provider] - Forms: ED Department Discharge Additional Instructions: Gentle stretching of neck. Ice/heat may help as we discussed. We gave you meds tonight to help with inflammation/muscle tightness/pain. 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 See how things go over the next few days. Get a follow up appointment scheduled with your primary provider for a recheck later this week if no improvement noted. You may need referral to PT, further evaluation, or further imaging. Follow up otherwise as needed. Tylenol/ibuprofen for pain.
== END 2020-10-27 17:45 | disposition home or self-care (01) ==
LOC: LL.ED 15:37
DX: M43.6 Torticollis (principal); E78.00 Pure hypercholesterolemia, unspecified; I10 Essential (primary) hypertension; J44.9 Chronic obstructive pulmonary disease, unspecified; E03.9 Hypothyroidism, unspecified; E66.9 Obesity, unspecified; Z86.718 Personal history of other venous thrombosis and embolism; Z68.24 Body mass index [BMI] 24.0-24.9, adult; Z79.899 Other long term (current) drug therapy; Z79.01 Long term (current) use of anticoagulants
CPT/HCPCS: 36415; 80053; 83735; 85025; 85610; 99283; A9270-GY; J7512

== ENCOUNTER 2021-01-19 14:53 | Emergency (ER) | payer MEDICARE, OTHER ==
[2021-01-19] MEDS ORDERED: Cephalexin 250 MG Cap PO ONE (15:25)
[2021-01-19] MEDS ORDERED: Bacitracin Oint 1 GM U/D Packet TOP ONE (15:30)
--- NOTE | 2021-01-19 15:30 | EDM.PDOC ---
ED HPI GENERAL MEDICAL PROBLEM - General Chief Complaint: General Stated Complaint: port-a-cath sticking out from chest wall Time Seen by Provider: 01/19/21 14:59 Source of Information: Reports: Patient History Limitations: Reports: No Limitations - History of Present Illness INITIAL COMMENTS - FREE TEXT/NARRATIVE: Patient comes to ER due to finding that his port-a-cath is hanging out of his chest today. Mild localized redness around the port-a-cath site but no active drainage. Patient denies any pain around site. No fever/chills. No other acute changes. Has had this in place for two years while being treated for lung cancer. Receives care at [facility] - Related Data Allergies Allergy/AdvReac Type Severity Reaction Status Date / Time No Known Allergies Allergy Verified 10/27/20 16:10 Home Meds: Home Meds Albuterol [Proventil HFA] 2 puff INH Q4H PRN #1 inhaler 09/20/14 [Rx] lisinopriL [Lisinopril] 1 tab PO DAILY 12/14/19 [History] Levothyroxine 150 mcg PO ACBREAKFAST #30 tablet 12/17/19 [Rx] Ferrous Sulfate 325 mg PO BEDTIME #30 tablet 08/23/20 [Rx] Folic Acid 1 mg PO BEDTIME #60 tab 08/23/20 [Rx] Ondansetron [Zofran ODT] 4 mg PO Q4H PRN #30 tab.dis 08/23/20 [Rx] Sodium Chloride 1 gm PO BID #60 tablet 08/23/20 [Rx] Thiamine [Vitamin B-1] 100 mg PO BEDTIME #30 tablet 08/23/20 [Rx] Warfarin [Coumadin] 5 mg PO QPM tablet 08/23/20 [Rx] Magnesium Glycinate, Mag Oxide [Magnesium Glycinate] 120 mg PO DAILY #30 capsule 10/27/20 [Rx] diazePAM [Valium] 2 mg PO TID PRN #12 tab 10/27/20 [Rx] predniSONE [Prednisone] 20 mg PO DAILY #2 tablet 10/27/20 [Rx] Potassium Chloride 10 meq PO DAILY #14 tablet.er 01/19/21 [Rx] cephALEXin [Keflex] 500 mg PO Q8H #9 cap 01/19/21 [Rx] Past Medical History HEENT History: Reports: Cataract, Hard of Hearing, Impaired Vision, Other (See Below) Other HEENT History: Bilateral presbycusis with no current hearing aid therapy. Patient does wear reading glasses. Cardiovascular History: Reports: Blood Clots/VTE/DVT, High Cholesterol, Hypertension Other Cardiovascular History: History of recurrent DVTs of the legs in the initially in the left leg and then in the right leg with current Coumadin therapy. Respiratory History: Reports: Bronchitis, Recurrent, COPD, Intubation, Previous, Pneumonia, Recurrent, Pulmonary Fibrosis, Other (See Below) Other Respiratory History: O2 dependent COPD usually nocturnal at 3.5 L/min. Metastatic lung cancer as below. Gastrointestinal History: Reports: Colon Polyp, GERD, Other (See Below) Other Gastrointestinal History: Esophageal cancer as below. Genitourinary History: Reports: BPH Musculoskeletal History: Reports: Arthritis, Back Pain, Chronic, Fracture, Neck Pain, Chronic, Osteoarthritis, RA, Other (See Below) Other Musculoskeletal History: Mid shaft right tibial and fibular fracture at about age 10 not requiring surgery. Left rotator cuff tear on 04/19/2017. Neurological History: Reports: Other (See Below) Other Neuro History: Right arm ulnar neuropathy. Psychiatric History: Reports: Addiction, Other (See Below) Other Psychiatric History: Alcohol and tobacco use as below. Endocrine/Metabolic History: Reports: Hypothyroidism, Obesity/BMI 30+, Other (See Below) Other Endocrine/Metabolic History: Previous obesity however not currently secondary to lung cancer, etc. Hematologic History: Reports: Other (See Below) Other Hematologic History: Polycythemia secondary to tobacco abuse. Immunologic History: Reports: Immunosuppression, Other (See Below) Other Immunologic History: Current lung with metastases. 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 Initial therapy completed on 06/06/2018 with patient discontinuing therapy on his own for recurrence in March 2019. New left upper lobe pulmonary nodules by CT scan on 09/26/2019. 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 Dermatologic History: Reports: None - Infectious Disease History Infectious Disease History: Reports: Chicken Pox, Rheumatic Fever - Past Surgical History Head Surgeries/Procedures: Reports: None HEENT Surgical History: Reports: Cataract Surgery, Eye Surgery, Oral Surgery, Other (See Below) Other HEENT Surgeries/Procedures: Laryngoscopies on 06/21/2018 and 01/18/2018. Bilateral cataract surgery at age 66. Complete teeth extraction with complete dentures uppers and lowers. Cardiovascular Surgical History: Reports: Other (See Below) Other Cardiovascular Surgeries/Procedures: Right-sided Port-A-Cath placement on 05/09/2018. Respiratory Surgical History: Reports: Lung Biopsies, Other (See Below) Other Respiratory Surgeries/Procedures: Left-sided lung biopsies secondary to lung cancer as above. Bronchoscopy is on 03/23/2018 and 10/12/2017. GI Surgical History: Reports: Appendectomy, Colonoscopy, EGD, Hernia, Abdominal, Polypectomy, Other (See Below) Other GI Surgeries/Procedures: Laparoscopic appendectomy and concomitant umbilical hernia repair in about 2009. EGD and colonoscopy on 09/20/2017. EGD on 02/19/2017. Male Surgical History: Reports: Circumcision, Other (See Below) Other Male Surgeries/Procedures: Circumcision as an infant. Endocrine Surgical History: Reports: None Neurological Surgical History: Reports: Lumbar Spine, Spinal Fusion, Other (See Below) Other Neurological Surgeries/Procedures: Spinal fusions in 1997, 2002, and 2003. Oncologic Surgical History: Reports: None Dermatological Surgical History: Reports: None - Past Imaging History Past Imaging History: Reports: CAT Scan (Multiple CTs of the chest with IV contrast with last evaluations on 09/26/2019 and 07/04/2019. Soft tissue of the neck CT on 09/03/2017.), MRI (MRI of the left shoulder on 04/19/2017.), PET (PET/CT of the skull and brain on 08/31/2018 and 03/02/2018 with similar evaluation however to the thigh on 10/04/2017.), PFT (10/07/2017), Swallow Study (09/03/2017), Ultrasound (Endobronchial ultrasound on 03/23/2018 and 10/12/2017.), Other (See Below) (EMG and nerve conduction studies on 07/14/2018.) Social & Family History - Family History HEENT: Reports: Macular Degeneration, Retinal Detachment, Other (See Below) Other HEENT Family History: Sister with macular degeneration. Brother with retinal detachment. Cardiac: Reports: Aneurysm, Other (See Below) Other Cardiac Family History: Mother with AAA. 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.) ED ROS GENERAL - Review of Systems Review Of Systems: See Below Constitutional: Reports: No Symptoms HEENT: Reports: No Symptoms Respiratory: Reports: No Symptoms Cardiovascular: Reports: No Symptoms GI/Abdominal: Reports: No Symptoms : Reports: No Symptoms Musculoskeletal: Reports: Other (no acute changes from baseline) Skin: Reports: Other (small area redness right chest at site of port-a-cath) Neurological: Reports: No Symptoms Psychiatric: Reports: No Symptoms ED EXAM, GENERAL - Physical Exam Exam: See Below Exam Limited By: No Limitations General Appearance: Alert, WD/WN, No Apparent Distress Ears: Hearing Grossly Normal Nose: No: Nasal Deformity, Nasal Swelling, Nasal Drainage Throat/Mouth: Normal Lips, Normal Voice, No Airway Compromise Head: Atraumatic, Normocephalic Neck: Supple Respiratory/Chest: No Respiratory Distress, No Accessory Muscle Use, Chest Non- Tender Cardiovascular: Regular Rate, Rhythm GI/Abdominal: Soft (Male) Exam: Deferred Rectal (Males) Exam: Deferred Back Exam: Other (no focal changes) Extremities: Non-Tender, Normal Capillary Refill Neurological: Alert, Oriented, Normal Cognition, Normal Gait Psychiatric: Normal Affect, Normal Mood Skin Exam: Other (Port-a-cath has broken throught the skin of right chest and is hanging approx. 2 inches down from chest. 2cm area where epidermis has broken. No puruent drainage/active drainage noted. Non-tender. Mild erythema noted at this area. ) Course - Orders/Labs/Meds Orders: Active Orders 24 hr Category Date Time Status CULTURE BLOOD [BC] Routine Lab 01/19/21 15:30 Stop Req CULTURE BLOOD [BC] Stat Lab 01/19/21 15:38 Received CULTURE WOUND [RM] Stat Lab 01/19/21 15:59 Received Blood Culture x2 Reflex Set [OM.PC] Stat Oth 01/19/21 15:50 Ordered Labs: Laboratory Tests 01/19/21 01/19/21 01/19/21 Range/Units 15:18 15:18 15:30 WBC 6.0 (4.0-10.2) K/uL RBC 3.69 L (4.33-5.41) M/uL Hgb 12.3 L D (13.1-16.8) g/dL Hct 35.4 L (39.0-49.0) % MCV 95.9 (84.0-98.0) fL MCH 33.3 (28.2-33.3) pg MCHC 34.7 (31.7-36.0) g/dL RDW 13.9 (11.2-14.1) % Plt Count 178 (150-350) K/uL Neut % (Auto) 81.4 H (45.0-80.0) % Lymph % (Auto) 5.9 L (10.0-50.0) % Victoria % (Auto) 9.2 (2.0-14.0) % Eos % (Auto) 3.0 (0.0-5.0) % Baso % (Auto) 0.5 (0.0-2.0) % Neut # (Auto) 4.85 (1.40-7.00) K/uL Lymph # (Auto) 0.35 L (0.50-3.50) K/uL Victoria # (Auto) 0.55 (0.00-1.00) K/uL Eos # (Auto) 0.18 (0.00-0.50) K/uL Baso # (Auto) 0.03 (0.00-0.20) K/uL PT 11.5 (9.5-12.0) SEC INR 1.1 Sodium 133 L (136-145) mmol/L Potassium 3.1 L (3.5-5.1) mmol/L Chloride 97 L (98-107) mmol/L Carbon Dioxide 28.3 (21.0-32.0) mmol/L Anion Gap 10.8 (7-15) meq/L BUN 5 L (7-18) mg/dL Creatinine 0.62 (0.51-1.17) mg/dL Est Cr Clr Drug Dosing TNP Estimated GFR (MDRD) > 60 mL/min Glucose 121 H (70-99) mg/dL Calcium 8.3 L (8.5-10.1) mg/dL Total Bilirubin 1.4 H (0.2-1.0) mg/dL AST 20 (15-37) U/L ALT 20 (12-78) U/L Alkaline Phosphatase 57 (46-116) IU/L Total Protein 6.4 (6.4-8.2) g/dL Albumin 3.2 L (3.4-5.0) g/dL Meds: Medications Discontinued Medications Generic Name Dose Route Start Last Admin Trade Name Freq PRN Reason Stop Dose Admin Bacitracin 1 dose 01/19/21 15:30 01/19/21 15:50 Bacitracin Oint 1 Gm U/D Packet TOP 01/19/21 15:31 1 dose ONETIME ONE Administration Cephalexin 500 mg 01/19/21 15:25 01/19/21 15:51 Cephalexin 250 Mg Cap PO 01/19/21 15:26 500 mg ONETIME ONE Administration Potassium Chloride 40 meq 01/19/21 16:20 Potassium Chloride 20 Meq Tab.Er PO 01/19/21 16:21 ONETIME ONE - Re-Assessments/Exams Free Text/Narrative Re-Assessment/Exam: 01/19/21 15:37 Call placed to [facility] and referred to ER. Reviewed situation with from the ED who in turn contacted interventional radiologist for guidance. IR instructed to sent an urgent consult to them so that they can contact the patient tomorrow and arrange a time for him to come in and get the port-a-cath pulled. We are to secure it/cover it here in our ER today. will send the consult for the patient to be seen/contacted by IR department. Given the small area of skin break down cannot rule out early cellulitis. Will order culture of port-a-cath site and also blood cultures/basi c labs. Patient will be started on Keflex as precaution/ok'd by [facility]. Departure - Departure Time of Disposition: 16:00 Disposition: Home, Self-Care 01 Condition: Good Clinical Impression: Encounter for care related to Port-a-Cath, Hypokalemia, Subtherapeutic international normalized ratio (INR) - Discharge Information *PRESCRIPTION DRUG MONITORING PROGRAM REVIEWED*: Not Applicable *COPY OF PRESCRIPTION DRUG MONITORING REPORT IN PATIENT ARPAN: Not Applicable Prescriptions: cephALEXin [Keflex] 500 mg PO Q8H #9 cap Potassium Chloride 10 meq PO DAILY #14 tablet.er Referrals: Yanira Antonio PA-C [Primary Care Provider] - Forms: ED Department Discharge Additional Instructions: Keep dressing in place over the port-a-cath in order to protect it. [facility] should be calling you TOMORROW in order to set up a time to have this removed. You can discuss with them/Oncology if you need to have a new one placed right away or if it can wait. We will have you start antibiotics to cover for potential skin infection. Follow up for recheck if you start to feel ill/have fevers/worsening redness around the chest area where port-a-cath is located. If you have not heard from [facility] by 1-2pm, call your Oncology clinic and see if they can help you arrange to be seen for this issue. Start potassium 1 tab daily. Get potassium level rechecked in one week at your clinic. Your INR was LOW today. 1.1 This will need to be addressed AFTER you are seen for the port-a-cath. If a new one is to be placed your INR needs to be under 1.5. You will need to work with [facility]/your doctors on getting your INR back to therapeutic level after you are seen by interventional radiology. Your W arfarin is not doing you any good at this level. - My Orders Last 24 Hours: My Active Orders 01/19/21 15:30 CULTURE BLOOD [BC] Routine 01/19/21 15:38 CULTURE BLOOD [BC] Stat 01/19/21 15:50 Blood Culture x2 Reflex Set [OM.PC] Stat 01/19/21 15:59 CULTURE WOUND [RM] Stat - Assessment/Plan Last 24 Hours: My Active Orders 01/19/21 15:30 CULTURE BLOOD [BC] Routine 01/19/21 15:38 CULTURE BLOOD [BC] Stat 01/19/21 15:50 Blood Culture x2 Reflex Set [OM.PC] Stat 01/19/21 15:59 CULTURE WOUND [RM] Stat
[2021-01-19 15:38] LABS: CHLORIDE,CL 97 mmol/L (98-107); SODIUM,NA 133 mmol/L (136-145)
[2021-01-19 15:45] LABS: ANION GAP 10.8 meq/L (7-15)
[2021-01-19] MEDS ORDERED: Potassium Chloride 20 MEQ Tab.ER PO ONE (16:20)
[2021-01-19 16:35] VITALS: BP 122/87; PULSE 80
== END 2021-01-19 17:00 | disposition home or self-care (01) ==
LOC: LL.ED 14:53
DX: E87.6 Hypokalemia (principal); R79.1 Abnormal coagulation profile; I10 Essential (primary) hypertension; J44.9 Chronic obstructive pulmonary disease, unspecified; E03.9 Hypothyroidism, unspecified; E66.9 Obesity, unspecified; Z45.2 Encounter for adjustment and management of vascular access device; Z79.899 Other long term (current) drug therapy
CPT/HCPCS: 36415; 80053; 85025; 85610; 87040; 87070; 87205; 99283; 99284; A9270-GY

== ENCOUNTER 2022-02-02 18:15 | Emergency (ER) | payer MEDICARE, OTHER ==
[2022-02-02] MEDS ORDERED: Iopamidol 755 Mg/ML 100 ML Bottle IVPUSH ONE (18:57)
[2022-02-02] MEDS ORDERED: Sodium Chloride 0.9% 1,000 ML IV ONE (19:04)
[2022-02-02 19:14] LABS: CORONAVIRUS COVID-19 NAA NEGATIVE (NEGATIVE); RESPIRATORY SYNCYTIAL VIR NAA NEGATIVE (NEGATIVE)
[2022-02-02 19:19] LABS: PTT,PARTIAL THROMBOPLSTIN TIME 25.6 SEC (23.6-29.8)
[2022-02-02 19:27] LABS: CHLORIDE,CL 87 mmol/L (98-107)
[2022-02-02 19:29] LABS: ANION GAP 10.1 meq/L (7-15); ESTIMATED GFR 96 mL/min (>=60); SODIUM,NA 124 mmol/L (136-145)
[2022-02-03] MEDS: Sodium Chloride 0.9% 10 ML Syringe FLUSH PRN ×2 (10:34→18:14)
[2022-02-03] MEDS: Sodium Chloride 0.9% 1,000 ML IV SCH ×2 (10:34→18:19)
[2022-02-03 17:07] VITALS: BP 111/74; PULSE 88
[2022-02-03] MEDS ORDERED: cefTRIAXone 2 GM Vial IVPUSH ONE (17:55)
== END 2022-02-03 18:40 ==
LOC: LL.ED 18:15
DX: E86.0 Dehydration (principal); J05.10 Acute epiglottitis without obstruction; C34.90 Malignant neoplasm of unspecified part of unspecified bronchus or lung; I10 Essential (primary) hypertension; J44.9 Chronic obstructive pulmonary disease, unspecified; M19.90 Unspecified osteoarthritis, unspecified site; E03.9 Hypothyroidism, unspecified; E66.9 Obesity, unspecified; Z68.1 Body mass index [BMI] 19.9 or less, adult; Z72.0 Tobacco use; Z79.01 Long term (current) use of anticoagulants; Z79.899 Other long term (current) drug therapy; Z20.822 Contact with and (suspected) exposure to COVID-19
CPT/HCPCS: 0241U; 36415; 70491; 71275; 80053; 81001; 83605; 83735; 83880; 84100; 84484; 85025; 85610; 85730; 86140; 87086; 93005; 96361; 96374; 99285-25; J0696; J3490; J7030; Q9967